=== PATIENT | male | born 1935 | race Caucasian/White ===

== ENCOUNTER 2017-10-02 15:33 | Inpatient (IN) | payer MEDICARE, OTHER ==
[~2017-10-02] VITALS: Ht 167.6 cm; Wt 90.5 kg
[2017-10-02] VITALS (10 sets, daily range): BP systolic 126–180; BP diastolic 75–108; PULSE 81–96; RESP 26–36; TEMP 98.7; O2SAT 96–98
[2017-10-02] MEDS ORDERED: RESP: ALBUTEROL 2.5 MG/IPRATROPIUM 0.5 MG NEB (SCH) INH ONE (15:45)
[2017-10-02] MEDS ORDERED: SODIUM CHLORIDE 0.9% FLUSH 10 ML FLUSH IVF PRN (15:45)
--- NOTE | 2017-10-02 15:52 | PD ---
HPI Chief Complaint: Respiratory Distress Time Seen by Provider: 15:35 Travel History International Travel<30 days: No Contact w/Intl Traveler<30days: No Traveled to known affect area: No History of Present Illness HPI The patient is a 82-year-old male who presents to the emergency department via EMS for shortness of breath. The patient notes increasing shortness of breath the last several months which has progressed her last several days. The patient has shortness of breath with exertion, audible wheezing, mostly dry nonproductive cough, and generalized weakness. The patient has been seen several times in the past and treated with steroids and inhalers, however, his symptoms have been progressing. He denies any known diagnosis of COPD, bronchitis, or CHF. The patient does take warfarin, however , is unsure of the diagnosis for why he takes warfarin. The patient is from [place], is followed at the [facility], does not have a local primary physician. He denies any fever, chills, or sweats. He does note increasing symptoms are worse with exertion and alleviated at rest. He denies any chest pressure or tightness with his symptoms. He denies any orthopnea or PND. He does have a history of previous trauma to left lower extremity, states his right lower extremity is chronically larger than his left lower extremity. He does note mild edema to the right lower extremity. He denies any known history of DVT or PE. The patient received Solu-Medrol 125 mg intravenously and 3 albuterol nebulizers prior to arrival. PFSH Past Medical History Cardiovascular Problems: Yes (AFIB) Past Surgical History Narrative Surgical Right knee surgery, left hip surgery Social History Tobacco Use: No Allergies-Medications (Allergen,Severity, Reaction): Coded Allergies: meloxicam (Verified Allergy, Intermediate, 10/02/17) indomethacin (Verified Allergy, Unknown, 10/02/17) Reported Meds & Prescriptions Reported Meds & Active Scripts Active Reported Guaifenesin 200 Mg Tablet 200 Mg PO TID Lisinopril 20 Mg Tab 20 Mg PO DAILY Finasteride 5 Mg Tab 5 Mg PO DAILY Do not crush. Tamsulosin (Tamsulosin HCl) 0.4 Mg Cap 0.4 Mg PO HS Warfarin 5 Mg Tab 2.5 Mg PO SUTUWETHFRSA Take 1/2 tablet (2.5mg) daily on Saturday,Saturday,Saturday,, Saturday and Saturday Warfarin 5 Mg Tab 5 Mg PO SATURDAY Simvastatin 20 Mg Tab 20 Mg PO HS Tramadol (Tramadol HCl) 50 Mg Tab 50 Mg PO TID Allopurinol 300 Mg Tab 300 Mg PO DAILY Lasix (Furosemide) 20 Mg Tab 20 Mg PO DAILY Metoprolol Tartrate 25 Mg Tab 25 Mg PO BID Prazosin (Prazosin HCl) 5 Mg Cap 5 Mg PO BID Omeprazole 20 Mg Tab 20 Mg PO DAILY Ventolin Hfa 18 GM Inh (Albuterol Sulfate) 90 Mcg/Act Aer 2 Puff INH QID Vitamin D3 (Cholecalciferol) 2,000 Unit Cap 2,000 Units PO DAILY Magnesium Oxide 420 Mg Tab 420 Mg PO BID Colchicine 0.6 Mg Cap 0.6 Mg PO MOWEFR Take 1 capsule (0.6mg) daily on Saturday,Saturday and Saturday [place] (Hydrocodone-Acetaminophen) 5 Mg-325 Mg Tab 1 Tab PO Q8HR PRN Colace (Docusate Sodium) 100 Mg Capsule 100 Mg PO BID PRN Claritin (Loratadine) 10 Mg Tablet 10 Mg PO DAILY Flonase Nasal [place] (Fluticasone Nasal [place]) 50 Mcg/Act [place] 2 [place] EACH NARE DAILY Diclofenac Topical 1% Gel 1 Applic TOPICAL BID PRN Symbicort Inh (Budesonide/Formoterol Fumarate) 80-4.5 Mcg/Act Aero 2 Puff INH Q12HR Review of Systems Except as stated in HPI: all other systems reviewed are Neg General / Constitutional: No: Fever HENT: No: Lightheadedness Cardiovascular: Positive: Dyspnea on exertion, No: Chest Pain or Discomfort Respiratory: Positive: Cough, Shortness of Breath, Wheezing Gastrointestinal: No: Nausea, Vomiting Musculoskeletal: Positive: Weakness, Edema Physical Exam Narrative GENERAL: Awake, alert, pleasant 82-year-old male who appears his stated age and is in moderate respiratory distress. SKIN: Focused skin assessment warm/dry. HEAD: Atraumatic. Normocephalic. EYES: No injection or drainage. ENT: No nasal bleeding or discharge. Mucous membranes pink and moist. NECK: Trachea midline. No JVD. CARDIOVASCULAR: Irregularly irregular, heart rate in the 80s. RESPIRATORY: Tachypnea with a respiratory rate of 30. Diffuse wheezing in all 4 lung hemphill. GASTROINTESTINAL: Abdomen soft, obese, reducible umbilical hernia. MUSCULOSKELETAL: Left lower extremity has chronic venous stasis changes and is significantly smaller than the right lower extremity with scarring. Right lower extremity has mild pitting edema. NEUROLOGICAL: Awake and alert. No obvious cranial nerve deficits. Motor grossly within normal limits. Normal speech. PSYCHIATRIC: Appropriate mood and affect; insight and judgment normal. Data Data Last Documented VS Vital Signs Date Time Temp Pulse Resp B/P (MAP) Pulse Ox O2 Delivery O2 Flow Rate FiO2 10/02/17 16:00 32 96 BiPAP 40 10/02/17 15:55 10.00 10/02/17 15:35 98.7 96 132/108 (116) Orders Orders Complete Blood Count With Diff (10/02/17 15:45) Comprehensive Metabolic Panel (10/02/17 15:45) B-Type Natriuretic Peptide (10/02/17 15:45) Act Partial Throm Time (Ptt) (10/02/17 15:45) Prothrombin Time / Inr (Pt) (10/02/17 15:45) Magnesium (Mg) (10/02/17 15:45) Ckmb (Isoenzyme) Profile (10/02/17 15:45) Troponin I (10/02/17 15:45) Influenzae A/B Antigen (10/02/17 15:45) Iv Access Insert/Monitor (10/02/17 15:45) Electrocardiogram (10/02/17 15:45) Ecg Monitoring (10/02/17 15:45) Oximetry (10/02/17 15:45) Oxygen Administration (10/02/17 15:45) Chest, Single Ap (10/02/17 15:45) Sodium Chloride 0.9% Flush (Ns Flush) (10/02/17 15:45) Albuterol-Ipratropium Neb (Duoneb Neb) (10/02/17 15:45) Resp Bipap / Cpap Non Invas Vt (10/02/17 15:45) CKMB (10/02/17 15:55) CKMB% (10/02/17 15:55) Aspirin Chew (Aspirin Chew) (10/02/17 17:00) Furosemide Inj (Lasix Inj) (10/02/17 17:00) Nitroglycerin 2% Oint (Nitroglycerin 2% (10/02/17 17:00) Labs Laboratory Tests Test 10/02/17 15:55 White Blood Count 4.5 TH/MM3 Red Blood Count 4.42 MIL/MM3 Hemoglobin 13.2 GM/DL Hematocrit 41.3 % Mean Corpuscular Volume 93.4 FL Mean Corpuscular Hemoglobin 29.8 PG Mean Corpuscular Hemoglobin Concent 31.9 % Red Cell Distribution Width 17.2 % Platelet Count 100 TH/MM3 Mean Platelet Volume 11.0 FL Neutrophils (%) (Auto) 65.6 % Lymphocytes (%) (Auto) 13.1 % Monocytes (%) (Auto) 17.7 % Eosinophils (%) (Auto) 2.8 % Basophils (%) (Auto) 0.8 % Neutrophils # (Auto) 3.0 TH/MM3 Lymphocytes # (Auto) 0.6 TH/MM3 Monocytes # (Auto) 0.8 TH/MM3 Eosinophils # (Auto) 0.1 TH/MM3 Basophils # (Auto) 0.0 TH/MM3 CBC Comment DIFF FINAL Differential Comment Prothrombin Time 26.1 SEC Prothromb Time International Ratio 2.6 RATIO Activated Partial Thromboplast Time 46.7 SEC Blood Urea Nitrogen 37 MG/DL Creatinine 1.86 MG/DL Random Glucose 69 MG/DL Total Protein 6.6 GM/DL Albumin 3.4 GM/DL Calcium Level 8.7 MG/DL Magnesium Level 2.1 MG/DL Alkaline Phosphatase 144 U/L Aspartate Amino Transf (AST/SGOT) 40 U/L Alanine Aminotransferase (ALT/SGPT) 31 U/L Total Bilirubin 0.9 MG/DL Sodium Level 140 MEQ/L Potassium Level 4.7 MEQ/L Chloride Level 106 MEQ/L Carbon Dioxide Level 27.0 MEQ/L Anion Gap 7 MEQ/L Estimat Glomerular Filtration Rate 35 ML/MIN Total Creatine Kinase 202 U/L Creatine Kinase MB 4.2 NG/ML Troponin I 0.14 NG/ML B-Type Natriuretic Peptide 634 PG/ML MDM Medical Decision Making Medical Screen Exam Complete: Yes Emergency Medical Condition: Yes Medical Record Reviewed: Yes Interpretation(s) EKG reveals atrial fibrillation with a heart rate 80. Low QRS voltage in the extremity leads. Last Impressions Chest X-Ray 10/02/17 0182 Signed Impressions: Service Date/Time: Monday, October 02, 2017 15:58 - CONCLUSION: Compensated cardiomegaly otherwise negative . Bridger Roque MD FACR Laboratory Tests Test 10/02/17 15:55 White Blood Count 4.5 TH/MM3 Red Blood Count 4.42 MIL/MM3 Hemoglobin 13.2 GM/DL Hematocrit 41.3 % Mean Corpuscular Volume 93.4 FL Mean Corpuscular Hemoglobin 29.8 PG Mean Corpuscular Hemoglobin Concent 31.9 % Red Cell Distribution Width 17.2 % Platelet Count 100 TH/MM3 Mean Platelet Volume 11.0 FL Neutrophils (%) (Auto) 65.6 % Lymphocytes (%) (Auto) 13.1 % Monocytes (%) (Auto) 17.7 % Eosinophils (%) (Auto) 2.8 % Basophils (%) (Auto) 0.8 % Neutrophils # (Auto) 3.0 TH/MM3 Lymphocytes # (Auto) 0.6 TH/MM3 Monocytes # (Auto) 0.8 TH/MM3 Eosinophils # (Auto) 0.1 TH/MM3 Basophils # (Auto) 0.0 TH/MM3 CBC Comment DIFF FINAL Differential Comment Prothrombin Time 26.1 SEC Prothromb Time International Ratio 2.6 RATIO Activated Partial Thromboplast Time 46.7 SEC Blood Urea Nitrogen 37 MG/DL Creatinine 1.86 MG/DL Random Glucose 69 MG/DL Total Protein 6.6 GM/DL Albumin 3.4 GM/DL Calcium Level 8.7 MG/DL Magnesium Level 2.1 MG/DL Alkaline Phosphatase 144 U/L Aspartate Amino Transf (AST/SGOT) 40 U/L Alanine Aminotransferase (ALT/SGPT) 31 U/L Total Bilirubin 0.9 MG/DL Sodium Level 140 MEQ/L Potassium Level 4.7 MEQ/L Chloride Level 106 MEQ/L Carbon Dioxide Level 27.0 MEQ/L Anion Gap 7 MEQ/L Estimat Glomerular Filtration Rate 35 ML/MIN Total Creatine Kinase 202 U/L Creatine Kinase MB 4.2 NG/ML Troponin I 0.14 NG/ML B-Type Natriuretic Peptide 634 PG/ML Differential Diagnosis Differential diagnosis includes COPD exacerbation, bronchitis, pneumonia, pulmonary embolism, pleural effusion, congestive heart failure, ACS. Narrative Course IV was established, labs are drawn and sent, and the patient was placed on cardiac telemetry monitoring and continuous pulse oximetry monitoring. EKG was ordered and interpreted. Chest x-ray was obtained. The patient continued to have tachypnea with a respiratory rate of 30 this 5 Solu-Medrol and 3 nebulizers prior to arrival, therefore, was placed on BiPAP 10/5 of 40%. Differential does include PE, however, patient is on warfarin. Therefore, INR level was sent to lab. The patient was placed on BiPAP secondary to elevated respiratory rate, his symptoms did improve with BiPAP when reevaluated at 4:45 PM. BNP was greater than 600, troponin was positive at 0.14, therefore, patient was administered aspirin. The patient initially denied any history of COPD or CHF, however, when his arrived she states he has a history of both COPD and CHF. The patient was also administered Lasix. The patient was given Nitropaste. The patient will be admitted. Critical Care Narrative Aggregate critical care time was 35 minutes. Time to perform other separately billable procedures was not included in the critical care time. My time did not include minutes spent treating any other patients simultaneously or on activities that did not directly contribute to the patient's treatment. The services I provided to this patient were to treat and/or prevent clinically significant deterioration that could result in: Anoxia, hypoxia, arrhythmia, pulmonary edema, . I provided critical care services requiring my management, as noted below: Chart data review, documentation time, medication orders and management, vital sign assessments/reviewing monitor data, ordering and reviewing lab tests, ordering and interpreting/reviewing x-rays and diagnostic studies, care of the patient and discussion of the patient with the admitting physicians. Physician Communication Physician Communication [facility] were paged for admission. I discussed the patient with Dr. Barnhart who agrees with admission. Diagnosis Primary Impression: Congestive heart failure Qualified Codes: I50.9 - Heart failure, unspecified Additional Impression: Elevated troponin Admitting Information Admitting Physician Requests: Admit Condition: Stable Ascencion Argueta MD Oct 02, 2017 15:52
--- NOTE | 2017-10-02 16:10 | RADRPT ---
EXAM DATE/TIME: 10/02/2017 15:58 [place] COMPARISON: No previous studies available for comparison. INDICATIONS : Shortness of breath, cough, and congestion. MEDICAL HISTORY : None. SURGICAL HISTORY : None. ENCOUNTER: Initial ACUITY: 1 day PAIN SCORE: 0/10 LOCATION: chest FINDINGS: The lungs are clear. The heart is minimally enlarged. The pulmonary vascularity is normal. There is n o evidence for infiltrate or failure. The portion of the bony skeleton visualized is unremarkable. CONCLUSION: Compensated cardiomegaly otherwise negative . Bridger Roque MD FACR on October 02, 2017 at 16:07 Board Certified Radiologist. This report was verified electronically.
[2017-10-02 16:24] LABS: BASOPHIL % 0.8 % (0.0-2.0); EOSINOPHIL # 0.1 TH/MM3 (0-0.4); EOSINOPHIL % 2.8 % (0.0-4.0); HEMATOCRIT 41.3 % (39.0-51.0); HEMOGLOBIN 13.2 GM/DL (13.0-17.0); LYMPH % 13.1 % (9.0-44.0); LYMPHOCYTE # 0.6 TH/MM3 (1.0-4.8); MEAN CELL VOLUME 93.4 FL (80.0-100.0); MEAN CORPUSCULAR HEMOGLOBIN 29.8 PG (27.0-34.0); MEAN CORPUSCULAR HGB CONC 31.9 % (32.0-36.0); MONO % 17.7 % (0.0-8.0); MONOCYTE # 0.8 TH/MM3 (0-0.9); NEUT % 65.6 % (16.0-70.0); PLATELET COUNT 100 TH/MM3 (150-450); RED BLOOD COUNT 4.42 MIL/MM3 (4.50-5.90); RED CELL DISTRIBUTION WIDTH 17.2 % (11.6-17.2); WHITE BLOOD COUNT 4.5 TH/MM3 (4.0-11.0)
[2017-10-02 16:41] LABS: INTERNATIONAL NORMALIZED RATIO 2.6 RATIO; PROTHROMBIN TIME - PATIENT 26.1 SEC (9.8-11.6)
[2017-10-02 16:46] LABS: ALKALINE PHOSPHATASE 144 U/L (45-117); ALT (GPT) 31 U/L (12-78); TOTAL BILIRUBIN ADULT 0.9 MG/DL (0.2-1.0); TOTAL PROTEIN 6.6 GM/DL (6.4-8.2); TROPONIN I 0.14 NG/ML (0.02-0.05)
[2017-10-02] MEDS ORDERED: NITROGLYCERIN 2% OINT 1 GM PACKET TOPICAL ONE (17:00)
[2017-10-02] MEDS ORDERED: FUROSEMIDE 40 MG/4 ML VIAL IV PUSH ONE (17:00)
[2017-10-02] MEDS ORDERED: ASPIRIN 81 MG CHEW TAB CHEW ONE (17:00)
[2017-10-02 17:01] LABS: ALBUMIN 3.4 GM/DL (3.4-5.0); AST (GOT) 40 U/L (15-37); BLOOD UREA NITROGEN 37 MG/DL (7-18); CALCIUM 8.7 MG/DL (8.5-10.1); CHLORIDE 106 MEQ/L (98-107); CREATININE 1.86 MG/DL (0.60-1.30); GLOMERULAR FILTRATION RATE 35 ML/MIN (>89); GLUCOSE,RANDOM 69 MG/DL (74-106); MAGNESIUM 2.1 MG/DL (1.5-2.5); SODIUM (NA) 140 MEQ/L (136-145)
[2017-10-02] MEDS ORDERED: METO25TA3 PO (17:02)
[2017-10-02] MEDS ORDERED: DICL1GEL7 TOPICAL (17:02)
[2017-10-02] MEDS ORDERED: VITA2000 PO (17:02)
[2017-10-02] MEDS ORDERED: LISI-515 PO (17:02)
[2017-10-02] MEDS ORDERED: FLUT1SPR5 EACH NARE (17:02)
[2017-10-02] MEDS ORDERED: COLC1CAP3 PO (17:02)
[2017-10-02] MEDS ORDERED: VENTAER INH (17:02)
[2017-10-02] MEDS ORDERED: SYMB80AE INH (17:02)
[2017-10-02] MEDS ORDERED: FINA5TAB2 PO (17:02)
[2017-10-02] MEDS ORDERED: COLA100C5 PO (17:02)
[2017-10-02] MEDS ORDERED: TRAM50TA PO (17:02)
[2017-10-02] MEDS ORDERED: NORC5TAB PO (17:02)
[2017-10-02] MEDS ORDERED: ALLO300T2 PO (17:02)
[2017-10-02] MEDS ORDERED: FURO1TAB62 PO (17:02)
[2017-10-02] MEDS ORDERED: SIMV20TA PO (17:02)
[2017-10-02] MEDS ORDERED: GUAI200T4 PO (17:02)
[2017-10-02] MEDS ORDERED: PRAZ5CAP PO (17:02)
[2017-10-02] MEDS ORDERED: MAGN420T PO (17:02)
[2017-10-02] MEDS ORDERED: TAMS0.4C4 PO (17:02)
[2017-10-02] MEDS ORDERED: WARF-23 PO ×2 (17:02)
[2017-10-02] MEDS ORDERED: CLAR10TA7 PO (17:02)
[2017-10-02] MEDS ORDERED: OMEP20TA93 PO (17:02)
[2017-10-02] MEDS ORDERED: BISACODYL 10 MG SUPP RECTAL PRN (18:30)
[2017-10-02] MEDS ORDERED: NALOXONE HCL 0.4 MG/ML AMP IV PUSH PRN (18:30)
[2017-10-02] MEDS ORDERED: MAGNESIUM HYDROXIDE SUSP 30 ML CUP PO PRN (18:30)
[2017-10-02] MEDS ORDERED: SENNOSIDES 8.6 MG TAB PO PRN (18:30)
[2017-10-02] MEDS ORDERED: SODIUM CHLORIDE 0.9% FLUSH 10 ML FLUSH IV FLUSH PRN (18:30)
[2017-10-02] MEDS ORDERED: ENOXAPARIN SODIUM 40 MG/0.4 ML SYRINGE SQ SCH (18:30)
[2017-10-02] MEDS ORDERED: ONDANSETRON HCL 4 MG/2 ML VIAL IVP PRN (18:30)
[2017-10-02] MEDS ORDERED: LACTULOSE SYRUP 20 GM/30 ML CUP PO PRN (18:30)
--- NOTE | 2017-10-02 19:04 | HHI.HP ---
[facility] Service [facility] Physician [facility] Admission Diagnosis congestive heart failure, elevated troponin, dyspnea Diagnoses: Chief Complaint: Shortness of breath. I can't breathe Travel History International Travel<30 Days: No Contact w/Intl Traveler <30 Da: No Traveled to Known Affected Are: No History of Present Illness 82-year-old white male with a history of COPD, CHF, chronic atrial fibrillation presents emergency room with worsening shortness of breath over the past 3 days. He describes shortness breath is worse with exertion and ambulation and associated with productive cough for the past 2 days. His is at bedside states that he has had greenish sputum production. He denies any chills or fever nor any symptoms of muscle aches or joint pains. She states that she recently had upper respiratory infection and feels he may have similar symptoms. He denies any associated abdominal pain nor any symptoms of diarrhea , nausea, or vomiting. He has noted that he has increase swelling of the lower legs. He denies any associated chest pain or score palpitations with the symptoms. He usually does not use oxygen. He does have inhalers and nebulizers and despite using these continues have shortness of breath. He has is currently staying here temporary until December from [place]. His baseline activity is ambulating with assistance of walker however due to the past 3 days has not been ambulating much. Review of Systems Constitutional: DENIES: Fatigue, Fever, Chills, Change in appetite Endocrine: DENIES: Heat/cold intolerance Eyes: DENIES: Blurred vision, Eye pain, Vision loss Ears, nose, mouth, throat: DENIES: Hearing loss, Nasal discharge, Throat pain, Ear Pain, Sinus Pain Respiratory: COMPLAINS OF: Cough, Sputum production, Shortness of breath, DENIES: Hemoptysis Cardiovascular: COMPLAINS OF: Lower Extremity Edema, Orthopnea, DENIES: Chest pain, Palpitations, Dyspnea on Exertion, PND Gastrointestinal: DENIES: Abdominal pain, Black stools, Bloody stools, Constipation, Diarrhea, Nausea, Vomiting Musculoskeletal: DENIES: Joint pain, Muscle aches, Stiffness Integumentary: DENIES: Rash Hematologic/lymphatic: DENIES: Bruising, Lymphadenopathy Immunologic/allergic: DENIES: Eczema Neurologic: DENIES: Headache, Localized weakness, Paresthesias Psychiatric: DENIES: Anxiety, Depression, Suicidal Ideation Past Family Social History Past Medical History COPD Nonspecific CHF Atrial fibrillation, chronic Hypertension Past Surgical History Right knee surgery Left hip surgery Reported Medications Guaifenesin 200 Mg Tablet 200 Mg PO TID Lisinopril 20 Mg Tab 20 Mg PO DAILY Finasteride 5 Mg Tab 5 Mg PO DAILY Tamsulosin (Tamsulosin HCl) 0.4 Mg Cap 0.4 Mg PO HS Warfarin 5 Mg 2.5 Mg PO SUTUWETHFRSA Take 1/2 tablet (2.5mg) daily on Saturday,Saturday,Saturday,,Saturday and Saturday Warfarin 5 Mg Tab 5 Mg PO SATURDAY Simvastatin 20 Mg Tab 20 Mg PO HS Tramadol (Tramadol HCl) 50 Mg Tab 50 Mg PO TID Allopurinol 300 Mg Tab 300 Mg PO DAILY Lasix (Furosemide) 20 Mg Tab 20 Mg PO DAILY Metoprolol Tartrate 25 Mg Tab 25 Mg PO BID Prazosin (Prazosin HCl) 5 Mg Cap 5 Mg PO BID Omeprazole 20 Mg Tab 20 Mg PO DAILY Ventolin Hfa 18 GM Inh (Albuterol Sulfate) 90 Mcg/Act Aer 2 Puff INH QID Vitamin D3 (Cholecalciferol) 2,000 Unit Cap 2,000 Units PO DAILY Magnesium Oxide 420 Mg Tab 420 Mg PO BID Colchicine 0.6 Mg Cap 0.6 Mg PO MOWEFR Take 1 capsule (0.6mg) daily on Saturday,Saturday and Saturday [place] (Hydrocodone-Acetaminophen) 5 Mg-325 Mg Tab 1 Tab PO Q8HR PRN Colace (Docusate Sodium) 100 Mg Capsule 100 Mg PO BID PRN Claritin (Loratadine) 10 Mg Tablet 10 Mg PO DAILY Flonase Nasal [place] (Fluticasone Nasal [place]) 50 Mcg/Act Williams 2 Williams EACH NARE DAILY Diclofenac Topical 1% Gel 1 Applic TOPICAL BID PRN Symbicort Inh (Budesonide/Formoterol Fumarate) 80-4.5 Mcg/Act Aero 2 Puff INH Q12HR Allergies: Coded Allergies: Iodinated Contrast- Oral and IV Dye (Verified Allergy, Severe, 10/02/17) pt's states it caused chronic renal failure meloxicam (Verified Allergy, Intermediate, 10/02/17) indomethacin (Verified Allergy, Unknown, 10/02/17) Family History Father had a stroke and hypertension Social History Occasional user [employer] does not smoke cigarettes Physical Exam Vital Signs Vital Signs Date Time Temp Pulse Resp B/P (MAP) Pulse Ox O2 Delivery O2 Flow Rate FiO2 10/02/17 18:37 81 26 180/89 (119) 98 BiPAP 50 10/02/17 17:00 87 28 178/88 (118) 96 BiPAP 40 10/02/17 16:00 32 96 BiPAP 40 10/02/17 15:55 99 BiPAP 10.00 40 10/02/17 15:45 96 Nasal Cannula 3.00 10/02/17 15:45 96 Nasal Cannula 3.00 10/02/17 15:35 98.7 96 36 132/108 (116) 98 Physical Exam GENERAL: This is a well-nourished, well-developed patient, in mild respiratory distress currently on a BiPAP SKIN: Venous stasis dermatitis with darkening of the skin and lower extremities bilaterally. Cool and dry. HEAD: Atraumatic. Normocephalic. No temporal or scalp tenderness. EYES: Pupils equal round and reactive. Extraocular motions intact. No scleral icterus. No injection or drainage. ENT: Nose without bleeding, purulent drainage or septal hematoma. Throat without erythema, tonsillar hypertrophy or exudate. Uvula midline. Airway patent. NECK: Trachea midline. No JVD or lymphadenopathy. Supple, nontender, no meningeal signs. CARDIOVASCULAR: Irregular rhythm regular rate RESPIRATORY: Diffuse wheezes bilaterally. GASTROINTESTINAL: Abdomen soft, obese non-tender, nondistended. Patient has an umbilical hernia. No guarding. Normoactive bowel sounds MUSCULOSKELETAL: Extremities without clubbing, cyanosis, with 1-2+ edema bilaterally NEUROLOGICAL: Awake and alert to person and place. Cranial nerves II through XII intact. Motor and sensory grossly within normal limits. Five out of 5 muscle strength in all muscle groups. Normal speech. Laboratory Laboratory Tests Test 10/02/17 15:55 White Blood Count 4.5 Red Blood Count 4.42 Hemoglobin 13.2 Hematocrit 41.3 Mean Corpuscular Volume 93.4 Mean Corpuscular Hemoglobin 29.8 Mean Corpuscular Hemoglobin Concent 31.9 Red Cell Distribution Width 17.2 Platelet Count 100 Mean Platelet Volume 11.0 Neutrophils (%) (Auto) 65.6 Lymphocytes (%) (Auto) 13.1 Monocytes (%) (Auto) 17.7 Eosinophils (%) (Auto) 2.8 Basophils (%) (Auto) 0.8 Neutrophils # (Auto) 3.0 Lymphocytes # (Auto) 0.6 Monocytes # (Auto) 0.8 Eosinophils # (Auto) 0.1 Basophils # (Auto) 0.0 CBC Comment DIFF FINAL Differential Comment Prothrombin Time 26.1 Prothromb Time International Ratio 2.6 Activated Partial Thromboplast Time 46.7 Blood Urea Nitrogen 37 Creatinine 1.86 Random Glucose 69 Total Protein 6.6 Albumin 3.4 Calcium Level 8.7 Magnesium Level 2.1 Alkaline Phosphatase 144 Aspartate Amino Transf (AST/SGOT) 40 Alanine Aminotransferase (ALT/SGPT) 31 Total Bilirubin 0.9 Sodium Level 140 Potassium Level 4.7 Chloride Level 106 Carbon Dioxide Level 27.0 Anion Gap 7 Estimat Glomerular Filtration Rate 35 Total Creatine Kinase 202 Creatine Kinase MB 4.2 Troponin I 0.14 B-Type Natriuretic Peptide 634 Date/Time Source Procedure Growth Status 10/02/17 15:55 Nasal Aspirate Influenza Types A,B Antigen ([facility]LER) - Final NEGATIVE FOR FLU A AND B ANTIGEN.... Complete Result Diagram: 10/02/17 1555 10/02/17 1555 Imaging EKG- afib with RVR 80 Last Impressions Chest X-Ray 10/02/17 1545 Signed Impressions: Service Date/Time: Monday, October 02, 2017 15:58 - CONCLUSION: Compensated cardiomegaly otherwise negative . Bridger Roque MD FACR Caprini VTE Risk Assessment Caprini VTE Risk Assessment: Mod/High Risk (score >= 2) Caprini Risk Assessment Model Point Value = 1 Point Value = 2 Point Value = 3 Point Value = 5 Age 41-60 Minor surgery BMI > 25 kg/m2 Swollen legs Varicose veins or History of unexplained or recurrent spontaneous Oral contraceptives or hormone replacement Sepsis (< 1 month) Serious lung disease, including pneumonia (< 1 month) Abnormal pulmonary function Acute myocardial infarction Congestive heart failure (< 1 month) History of inflammatory bowel disease Medical patient at bed rest Age 61-74 Arthroscopic surgery Major open surgery (> 45 min) Laparoscopic surgery (> 45 min) Malignancy Confined to bed (> 72 hours) Immobilizing plaster cast Central venous access Age >= 75 History of VTE Family history of VTE Factor V Leiden Prothrombin [id number] Lupus anticoagulant Anticardiolipin antibodies Elevated serum homocysteine Heparin-induced thrombocytopenia Other congenital or acquired thrombophilia Stroke (< 1 month) Elective arthroplasty Hip, pelvis, or leg fracture Acute spinal cord injury (< 1 month) Prophylaxis Regimen Total Risk Factor Score Risk Level Prophylaxis Regimen 0-1 Low Early ambulation 2 Moderate Order ONE of the following: *Sequential Compression Device (SCD) *Heparin 5000 units SQ BID 3-4 Higher Order ONE of the following medications: *Heparin 5000 units SQ TID *Enoxaparin/Lovenox 40 mg SQ daily (WT < 150 kg, CrCl > 30 mL/min) *Enoxaparin/Lovenox 30 mg SQ daily (WT < 150 kg, CrCl > 10-29 mL/min) *Enoxaparin/Lovenox 30 mg SQ BID (WT < 150 kg, CrCl > 30 mL/min) AND/OR *Sequential Compression Device (SCD) 5 or more Highest Order ONE of the following medications: *Heparin 5000 units SQ TID (Preferred with Epidurals) *Enoxaparin/Lovenox 40 mg SQ daily (WT < 150 kg, CrCl > 30 mL/min) *Enoxaparin/Lovenox 30 mg SQ daily (WT < 150 kg, CrCl > 10-29 mL/min) *Enoxaparin/Lovenox 30 mg SQ BID (WT < 150 kg, CrCl > 30 mL/min) AND *Sequential Compression Device (SCD) Assessment and Plan Problem List: (1) Acute respiratory failure ICD Code: J96.00 - Acute respiratory failure, unspecified whether with hypoxia or hypercapnia Status: Acute Assessment and Plan 1. Acute respiratory failure with hypoxia likely due to COPD exacerbation from likely underlying bronchitis and CHF exacerbation. -At this time patient's current moment BiPAP in the emergency room and will continue oxygen support and wean as tolerated. Continue with bronchodilator per nebulizer, steroids with IV Solu-Medrol and IV diuretics. Monitor intake and output closely, initiate doxycycline for bronchitis. Obtain 2-D echo to evaluate EF 2. Deconditioning with generalized weakness due to acute respiratory failure and acute bronchitis -physical therapy evaluation 3. Chronic atrial fibrillation -continue with metoprolol and warfarin, monitor INR. 4. History hypertension resume antihypertensive lisinopril, Vasotec when necessary for any uncontrolled blood pressure 5. Hyperlipidemia history- resume home statin. 6. Chronic kidney disease stage III -monitor on diuretics, avoid nephrotoxins. 7. DVT prophylaxis- Coumadin Discussed with at bedside who prefers home health care upon discharge to home when stable. Code Status Full code Discussed Condition With Patient and spouse at bedside. Physician Certification 2 Midnight Certification Type: Admission for Inpatient Services Order for Inpatient Services The services are ordered in accordance with Medicare regulations or non- Medicare payer requirements, as applicable. In the case of services not specified as inpatient-only, they are appropriately provided as inpatient services in accordance with the 2-midnight benchmark. Estimated LOS (days): 3 days is the estimated time the patient will need to remain in the hospital, assuming treatment plan goals are met and no additional complications. Post-Hospital Plan: Home Health Problem Qualifiers (1) Acute respiratory failure: Qualified Codes: J96.01 - Acute respiratory failure with hypoxia Lyndsay Barnhart MD Oct 02, 2017 19:03
[2017-10-02] MEDS: SODIUM CHLORIDE 0.9% FLUSH 10 ML FLUSH IV FLUSH SCH (19:09)
[2017-10-02] MEDS: LISINOPRIL 20 MG TAB PO SCH ×2 (19:30→20:04)
[2017-10-02] MEDS ORDERED: RESP: ALBUTEROL 2.5 MG/3 ML NEB (PRN) INH (19:30)
[2017-10-02] MEDS ORDERED: guaiFENesin/DEXTROMETHORPHAN 200 MG/20 MG/10 ML CUP PO PRN (19:30)
[2017-10-02] MEDS ORDERED: ENALAPRILAT 1.25 MG/ML VIAL IV PUSH PRN (19:30)
[2017-10-02] MEDS: WARFARIN SOD 2.5 MG TAB PO SCH (19:34)
[2017-10-02] MEDS: DOXYCYCLINE HYCLATE 100 MG CAP PO SCH (19:48)
[2017-10-02] MEDS: methylPREDNISolone SOD SUCC 125 MG/2 ML VIAL IV PUSH SCH (19:48)
[2017-10-02] MEDS: POTASSIUM CHLORIDE 20 MEQ CONTROLLED RELEASE TAB PO SCH (19:48)
[2017-10-02] MEDS: FINASTERIDE 5 MG TAB PO SCH (19:57)
[2017-10-02] MEDS: COLCHICINE 0.6 MG TAB PO SCH (19:57)
[2017-10-02] MEDS: TAMSULOSIN HCL 0.4 MG CAP PO SCH (19:57)
[2017-10-02] MEDS: RESP: ALBUTEROL 2.5 MG/IPRATROPIUM 0.5 MG NEB (SCH) INH (20:34)
[2017-10-02] MEDS: PRAVASTATIN SOD 40 MG TAB PO SCH (20:43)
[2017-10-02] MEDS: METOPROLOL TARTRATE 25 MG TAB PO SCH (20:43)
[2017-10-02] MEDS: PRAZOSIN HCL 5 MG CAP PO SCH (21:00)
[2017-10-02] MEDS ORDERED: SODIUM CHLORIDE 0.9% FLUSH 10 ML FLUSH IV FLUSH SCH (21:00)
[2017-10-02] MEDS ORDERED: ENOXAPARIN SODIUM 30 MG/0.3 ML SYRINGE SQ SCH (21:00)
[2017-10-03] VITALS (18 sets, daily range): BP systolic 104–160; BP diastolic 57–107; PULSE 75–119; RESP 16–22; TEMP 97.7–97.8; O2SAT 94–99
[2017-10-03] MEDS: RESP: ALBUTEROL 2.5 MG/IPRATROPIUM 0.5 MG NEB (SCH) INH ×7 (00:58→23:44)
[2017-10-03] MEDS: methylPREDNISolone SOD SUCC 125 MG/2 ML VIAL IV PUSH SCH ×4 (02:10→21:59)
[2017-10-03 08:16] LABS: BICARBONATE 25.5 MEQ/L (21.0-32.0); CALCIUM 8.9 MG/DL (8.5-10.1); CREATININE 1.93 MG/DL (0.60-1.30)
[2017-10-03] MEDS: DOXYCYCLINE HYCLATE 100 MG CAP PO SCH ×2 (10:04→22:00)
[2017-10-03] MEDS: FUROSEMIDE 40 MG/4 ML VIAL IVP SCH ×2 (10:04→18:00)
[2017-10-03] MEDS: PRAZOSIN HCL 5 MG CAP PO SCH ×2 (10:04→21:58)
[2017-10-03] MEDS: traMADol HCL 50 MG TAB PO SCH ×3 (10:04→18:00)
[2017-10-03] MEDS: ALLOPURINOL 300 MG TAB PO SCH (10:05)
[2017-10-03] MEDS: LORATADINE 10 MG TAB PO SCH (10:05)
[2017-10-03] MEDS: FINASTERIDE 5 MG TAB PO SCH (10:06)
[2017-10-03] MEDS: LISINOPRIL 20 MG TAB PO SCH (10:06)
[2017-10-03] MEDS: METOPROLOL TARTRATE 25 MG TAB PO SCH ×2 (10:12→21:59)
[2017-10-03] MEDS: SODIUM CHLORIDE 0.9% FLUSH 10 ML FLUSH IV FLUSH SCH ×2 (10:12→22:00)
[2017-10-03] MEDS: PANTOPRAZOLE SOD 20 MG DELAYED RELEASE TAB PO SCH (10:12)
[2017-10-03] MEDS: POTASSIUM CHLORIDE 20 MEQ CONTROLLED RELEASE TAB PO SCH ×2 (10:12→21:59)
--- NOTE | 2017-10-03 12:15 | HHI.PR ---
Subjective Remarks Breathing is better. Trying to cough up phlegm. No active shortness of her palpitations. Is open to going to rehabilitation if need to. Objective Vitals Vital Signs Date Time Temp Pulse Resp B/P (MAP) Pulse Ox O2 Delivery O2 Flow Rate FiO2 10/03/17 12:08 103 20 134/68 (90) 95 Nasal Cannula 2.00 10/03/17 09:29 100 20 160/107 (124) 95 Nasal Cannula 2.00 10/03/17 07:37 97 Nasal Cannula 2.00 10/03/17 07:02 88 148/78 (101) 97 Nasal Cannula 4.00 10/03/17 05:59 84 137/99 (112) 97 Nasal Cannula 4.00 10/03/17 05:05 93 22 135/83 (100) 98 Nasal Cannula 4.00 10/03/17 03:59 94 149/93 (111) 97 Nasal Cannula 4.00 10/03/17 02:59 79 22 132/74 (93) 97 Nasal Cannula 4.00 10/03/17 02:09 75 22 132/71 (91) 97 Nasal Cannula 4.00 10/03/17 00:59 96 Nasal Cannula 4.00 10/02/17 22:59 87 146/75 (98) 98 Nasal Cannula 4.00 10/02/17 22:20 85 126/85 (99) 96 Nasal Cannula 4.00 10/02/17 21:38 97 Nasal Cannula 4.00 10/02/17 20:59 93 177/84 (115) 98 BiPAP 10/02/17 20:04 82 163/102 (122) 98 BiPAP 10/02/17 19:29 94 154/77 (102) 97 BiPAP 10/02/17 18:37 81 26 180/89 (119) 98 BiPAP 50 10/02/17 17:00 87 28 178/88 (118) 96 BiPAP 40 10/02/17 16:00 32 96 BiPAP 40 10/02/17 15:55 99 BiPAP 10.00 40 10/02/17 15:47 97 40 10/02/17 15:45 96 Nasal Cannula 3.00 10/02/17 15:45 96 Nasal Cannula 3.00 10/02/17 15:35 98.7 96 36 132/108 (116) 98 I/O 1/07/1010/02/17 10/02/17 10/03/17 10/03/17 10/03/17 07:00 15:00 23:00 07:00 15:00 23:00 Output Total 1000 ml 500 ml Balance -1000 ml -500 ml Output Urine Total 1000 ml 500 ml # Voids 3 2 Result Diagram: 10/02/17 1555 10/03/17 0720 Other Results Microbiology Date/Time Source Procedure Growth Status 10/02/17 15:55 Nasal Aspirate Influenza Types A,B Antigen (CHANDLER) - Final NEGATIVE FOR FLU A AND B ANTIGEN.... Complete Imaging Last Impressions Chest X-Ray 10/02/17 1545 Signed Impressions: Service Date/Time: Monday, October 02, 2017 15:58 - CONCLUSION: Compensated cardiomegaly otherwise negative . Bridger Roque MD FACR Objective Remarks GENERAL: This is a well-nourished, well-developed patient, in no apparent distress. CARDIOVASCULAR: Irregular rate and rhythm RESPIRATORY: Diffuse expiratory wheezes, diminish breath sounds bilaterally. GASTROINTESTINAL: Abdomen soft, non-tender, obese nondistended. Normal active bowel sounds MUSCULOSKELETAL: Extremities without clubbing, cyanosis, 1-2+ edema with venous stasis dermatitis NEURO: Alert & Oriented x4 to person, place, time, situation. Moves all ext x4 A/P Problem List: (1) Acute respiratory failure ICD Code: J96.00 - Acute respiratory failure, unspecified whether with hypoxia or hypercapnia Status: Acute Assessment and Plan 1. Acute respiratory failure with hypoxia likely due to COPD exacerbation from likely underlying bronchitis and CHF exacerbation. - At this time, patient has improved overnight and wean off of BiPAP now on 2 L nasal cannula. Continue with bronchodilator per nebulizer, steroids with IV Solu-Medrol will be decreased to every 8 hours in the morning and IV diuretics, Lasix. Monitor intake and output closely, initiate doxycycline for bronchitis. Obtain 2-D echo to evaluate EF. Once it test in the morning to determine oxygen needs upon discharge. 2. Deconditioning with generalized weakness due to acute respiratory failure and acute bronchitis -await physical therapy evaluation 3. Chronic atrial fibrillation -currently rate controlled. Continue with metoprolol and warfarin, monitor INR. INR therapeutic on admission. 4. History hypertension resume antihypertensive lisinopril, Vasotec when necessary for any uncontrolled blood pressure 5. Hyperlipidemia history- resume home statin. 6. Chronic kidney disease stage III -stable overnight, monitor on diuretics, avoid nephrotoxins. 7. DVT prophylaxis- Coumadin Discharge Planning would prefer patient to go home with home health care, patient is open to going to [facility] facility. Patient and is here from [place] until December. Follow-up with local primary care physician. Walk fit test to be done the morning to determine if patient will need home O2 if home health care is arrange for disposition. Problem Qualifiers (1) Acute respiratory failure: Qualified Codes: J96.01 - Acute respiratory failure with hypoxia Lyndsay Barnhart MD Oct 03, 2017 12:15
[2017-10-03] MEDS: WARFARIN SOD 2.5 MG TAB PO SCH (16:00)
--- NOTE | 2017-10-03 18:22 | EKG ---
Date Performed: 10/02/2017 Time Performed: 15:41:09 PTAGE: 82 years EKG: ATRIAL FIBRILLATION MARKED RIGHT AXIS DEVIATION LOW QRS VOLTAGE IN EXTREMITY LEADS PATTERN CONSISTENT WITH PULMONARY DISEASE SEPTAL MYOCARDIAL INFARCTION ABNORMAL ECG NO PREVIOUS TRACING DOCTOR: Arlin Spann Interpretating Date/Time 10/03/2017 18:20:50
[2017-10-03] MEDS: TAMSULOSIN HCL 0.4 MG CAP PO SCH (21:59)
[2017-10-03] MEDS: PRAVASTATIN SOD 40 MG TAB PO SCH (22:00)
[2017-10-04] VITALS (14 sets, daily range): BP systolic 109–134; BP diastolic 62–104; PULSE 78–130; RESP 18–22; TEMP 96.2–98.1; O2SAT 93–98
[2017-10-04] MEDS: methylPREDNISolone SOD SUCC 125 MG/2 ML VIAL IV PUSH SCH ×4 (01:55→23:43)
[2017-10-04] MEDS: RESP: ALBUTEROL 2.5 MG/IPRATROPIUM 0.5 MG NEB (SCH) INH ×5 (04:00→19:04)
[2017-10-04] MEDS: SODIUM CHLORIDE 0.9% FLUSH 10 ML FLUSH IV FLUSH PRN (05:39)
[2017-10-04] MEDS ORDERED: methylPREDNISolone SOD SUCC 125 MG/2 ML VIAL IV PUSH SCH (06:00)
[2017-10-04] MEDS: POTASSIUM CHLORIDE 20 MEQ CONTROLLED RELEASE TAB PO SCH ×2 (08:39→21:00)
[2017-10-04] MEDS: ALLOPURINOL 300 MG TAB PO SCH (08:41)
[2017-10-04] MEDS: FUROSEMIDE 40 MG/4 ML VIAL IVP SCH (08:41)
[2017-10-04] MEDS: PANTOPRAZOLE SOD 20 MG DELAYED RELEASE TAB PO SCH (08:41)
[2017-10-04] MEDS: LORATADINE 10 MG TAB PO SCH (08:41)
[2017-10-04] MEDS: SODIUM CHLORIDE 0.9% FLUSH 10 ML FLUSH IV FLUSH SCH ×2 (08:42→21:01)
[2017-10-04] MEDS: FINASTERIDE 5 MG TAB PO SCH (08:42)
[2017-10-04] MEDS: METOPROLOL TARTRATE 25 MG TAB PO SCH (08:42)
[2017-10-04] MEDS: PRAZOSIN HCL 5 MG CAP PO SCH ×2 (08:42→21:00)
[2017-10-04] MEDS: LISINOPRIL 20 MG TAB PO SCH (08:42)
[2017-10-04] MEDS: DOXYCYCLINE HYCLATE 100 MG CAP PO SCH (08:42)
[2017-10-04] MEDS: traMADol HCL 50 MG TAB PO SCH ×3 (08:52→17:42)
[2017-10-04 09:30] LABS: INTERNATIONAL NORMALIZED RATIO 3.1 RATIO; PROTHROMBIN TIME - PATIENT 31.3 SEC (9.8-11.6)
[2017-10-04 09:56] LABS: BICARBONATE 25.4 MEQ/L (21.0-32.0); CREATININE 2.62 MG/DL (0.60-1.30)
--- NOTE | 2017-10-04 10:04 | RADRPT ---
EXAM DATE/TIME: 10/04/2017 09:26 [facility] COMPARISON: CHEST SINGLE AP, October 02, 2017, 15:58. INDICATIONS : Shortness of breath. MEDICAL HISTORY : None. SURGICAL HISTORY : None. ENCOUNTER: Subsequent ACUITY: 3 days PAIN SCORE: 0/10 LOCATION: Bilateral chest FINDINGS: Portable AP view of the chest demonstrates a normal-sized cardiac silhouette. Lungs are underinflated with mild bibasilar opacity. No effusion, consolidation, or pneumothorax is identified. Bones and so ft tissues demonstrate no acute finding. CONCLUSION: Underinflation with mild bibasilar opacity consistent with atelectasis. Otherwise, no acute finding i s identified. Jorge Robledo MD on October 04, 2017 at 9:55 Board Certified Radiologist. This report was verified electronically.
[2017-10-04] MEDS: SODIUM CHLOR 0.9% 1000 ML INJ 1,000 ML IV SCH ×2 (10:52→23:44)
[2017-10-04] MEDS: LEVOFLOXACIN 750 MG PREMIX INJ 150 ML IV SCH (10:52)
--- NOTE | 2017-10-04 10:52 | PD.PN.STU ---
Subjective Remarks Pt is a 82 year old male with history of COPD CHF and chronic A fib on hopsi day 2. Pt was admitted for respiratory failure due to severe COPD exacerbation. He is currently being treated with solumedrol IV, lasix IV, doxy PO, and duoneb. Today patient reports feeling better with no new complains. admits to sob, decreased energy and cough, but they are improving. denies any hemoptysis, palpitations fever or chills. Denies N/V/D. Objective Vitals Vital Signs Date Time Temp Pulse Resp B/P (MAP) Pulse Ox O2 Delivery O2 Flow Rate FiO2 10/04/17 08:16 130 10/04/17 08:00 96.2 107 20 131/65 (87) 97 10/04/17 07:32 98 Nasal Cannula 2.00 10/04/17 04:02 94 10/04/17 04:00 98.1 102 20 134/80 (98) 95 10/04/17 00:06 119 10/04/17 00:00 98.1 78 18 109/73 (85) 93 10/03/17 23:48 96 Nasal Cannula 2.00 10/03/17 20:38 95 Nasal Cannula 2.00 10/03/17 20:23 90 10/03/17 20:15 Nasal Cannula 2.00 10/03/17 20:00 97.7 97 18 104/69 (81) 94 10/03/17 19:43 22 10/03/17 17:43 99 Nasal Cannula 2.00 10/03/17 15:30 97.8 91 20 120/57 (78) 97 10/03/17 13:32 81 16 131/61 (84) 97 Nasal Cannula 2.00 10/03/17 12:08 103 20 134/68 (90) 95 Nasal Cannula 2.00 I/O 10/03/17 10/03/17 10/03/17 10/04/17 10/04/17 10/04/17 07:00 15:00 23:00 07:00 15:00 23:00 Output Total 500 ml 250 ml Balance -500 ml -250 ml Output Urine Total 500 ml 250 ml # Voids 2 Result Diagram: 10/02/17 1555 10/04/17 0800 Objective Remarks GENERAL: WN/WD pleasant male with no acute distress SKIN: Warm and dry. HEAD: Normocephalic. EYES: No scleral icterus. No injection or drainage. NECK: Supple, trachea midline. No JVD or lymphadenopathy. CARDIOVASCULAR: Tachycardic with irregular rate. no murmurs rubs or gallops RESPIRATORY: breath sounds decreased bilaterally with diffuse wheezes. no crackles GASTROINTESTINAL: Abdomen soft, non-tender, nondistended. MUSCULOSKELETAL: No cyanosis, or edema. BACK: Nontender without obvious deformity. No CVA tenderness. A/P Assessment and Plan 68 year old male with h/o COPD, CHF, HTN and chronic a fib admitted for respiratory failure 2/2 severe COPD exacerbation. 1) Respiratory failure 2/2 COPD - Pt feels better but still has significant wheezing and SOB Satting 97 on 2L. Will increase solumedrol from 60 mg to 125 mg IV q6hr x 72 hr. WIll change doxy PO to IV. Conitnue with nebs PRN. 2) Weakness - consult PT for assessment 3) Chronic A Fib - rate is uncontrolled at 130. Will increase metoprolol dose from 60 to 75mg PO BID. Anticoagulatuion with coumadin 4) HTN - continue home medication of lisinopril 5) Hyperlipidemia - continue home statin treatment 6) Hyperglycemia - likely due to steroid medication 7) DVT proph - Coumadin Cezar Campbell M3 Oct 04, 2017 10:52
[2017-10-04] MEDS ORDERED: methylPREDNISolone SOD SUCC 125 MG/2 ML VIAL IV PUSH ONE (11:00)
--- NOTE | 2017-10-04 15:06 | ECHRPT ---
Indication: HEART FAILURE CONCLUSIONS Normal left ventricular size. Moderate concentric left ventricular hypertrophy. The left atrial size is mildly dilated. Mild mitral valve regurgitation. There is mild to moderate tricuspid valve regurgitation. There is estimated mild pulmonary hypertension present (47 mmHg). The pulmonary valve is not well visualized. BP: 131 / 61 HR: 81 Rhythm: MEASUREMENTS (Male / Female) Normal Values Technical Quality:Good 2D ECHO LV Diastolic Diameter PLAX 4.1 cm 4.2 - 5.9 / 3.9 - 5.3 cm LV Systolic Diameter PLAX 3.1 cm IVS Diastolic Thickness 2.2 cm 0.6 - 1.0 / 0.6 - 0.9 cm LVPW Diastolic Thickness 0.9 cm 0.6 - 1.0 / 0.6 - 0.9 cm LV Relative Wall Thickness 0.8 RV Internal Dim ED PLAX 3.1 cm LA Systolic Diameter LX 4.5 cm 3.0 - 4.0 / 2.7 - 3.8 cm DOPPLER Mitral E Point Velocity 76.0 cm/s TR Peak Velocity 341.0 cm/s TR Peak Gradient 46.5 mmHg FINDINGS LEFT VENTRICLE Normal left ventricular size. Moderate concentric left ventricular hypertrophy. The left ventricular systolic function is normal with an estimated ejection fraction in the range of 60-65%. RIGHT VENTRICLE Normal right ventricular size and systolic function. LEFT ATRIUM The left atrial size is mildly dilated. RIGHT ATRIUM The right atrial size is normal. ATRIAL SEPTUM Normal atrial septal thickness without atrial level shunting by limited color doppler interrogation. AORTA The aortic root and proximal ascending aorta are normal in size on limited imaging. MITRAL VALVE Mild mitral valve regurgitation. AORTIC VALVE Trileaflet aortic valve. No aortic valve stenosis or regurgitation. TRICUSPID VALVE There is mild to moderate tricuspid valve regurgitation. There is estimated mild pulmonary hypertension present (47 mmHg). PULMONARY VALVE The pulmonary valve is not well visualized. VESSELS The inferior vena cava is normal in size. PERICARDIUM No pericardial effusion. Misael Espinoza MD, FACC (Electronically Signed) Final Date:04 October 2017 15:05
--- NOTE | 2017-10-04 17:06 | HHI.PR ---
Subjective Remarks As per RN patient had a run of 10 bests of non sustained VT Patient states still feels SOB but is better than yesterday. Denies fever or chills (+) cough sating 97% on 2 liters nasal canula. Objective Vitals Vital Signs Date Time Temp Pulse Resp B/P (MAP) Pulse Ox O2 Delivery O2 Flow Rate FiO2 10/04/17 16:00 97.7 87 18 131/62 (85) 96 10/04/17 15:18 97 Nasal Cannula 2.00 10/04/17 12:00 98.1 95 22 130/104 (113) 96 10/04/17 11:34 101 10/04/17 08:16 130 10/04/17 08:00 Nasal Cannula 2.00 50 10/04/17 08:00 96.2 107 20 131/65 (87) 97 10/04/17 07:32 98 Nasal Cannula 2.00 10/04/17 04:02 94 10/04/17 04:00 98.1 102 20 134/80 (98) 95 10/04/17 00:06 119 10/04/17 00:00 98.1 78 18 109/73 (85) 93 10/03/17 23:48 96 Nasal Cannula 2.00 10/03/17 20:38 95 Nasal Cannula 2.00 10/03/17 20:23 90 10/03/17 20:15 Nasal Cannula 2.00 10/03/17 20:00 97.7 97 18 104/69 (81) 94 10/03/17 19:43 22 10/03/17 17:43 99 Nasal Cannula 2.00 I/O 10/03/17 10/03/17 10/03/17 10/04/17 10/04/17 10/04/17 07:00 15:00 23:00 07:00 15:00 23:00 Output Total 500 ml 250 ml Balance -500 ml -250 ml Output Urine Total 500 ml 250 ml # Voids 2 Result Diagram: 10/02/17 1555 10/04/17 0800 Imaging Last Impressions Chest X-Ray 10/04/17 0000 Signed Impressions: Service Date/Time: Wednesday, October 04, 2017 09:26 - CONCLUSION: Underinflation with mild bibasilar opacity consistent with atelectasis. Otherwise, no acute finding is identified. Jorge Robledo MD Objective Remarks AAOx3 The patient is in moderate respiratory distress. There is diffuse bilateral wheezing mostly in expiratory phase on bilateral lung hemphill. (+) use of accesory muscles of respiration Abdomen is soft, non tender, non distended No edema observed on lower extremities Medications and IVs Current Medications Medications (Trade) Dose Ordered Sig/Aishwarya Route Start Time Stop Time Status Last Admin (Zofran Inj) 4 mg Q6H PRN IVP 10/02/17 18:30 (Narcan Inj) 0.4 mg UNSCH PRN IV PUSH 10/02/17 18:30 (Milk Of Magnesia Liq) 30 ml Q12H PRN PO 10/02/17 18:30 (Senokot) 17.2 mg Q12H PRN PO 10/02/17 18:30 (Dulcolax Supp) 10 mg DAILY PRN RECTAL 10/02/17 18:30 (Lactulose Liq) 30 ml DAILY PRN PO 10/02/17 18:30 10/04/17 08:38 (NS Flush) 2 ml BID IV FLUSH 10/02/17 21:00 10/04/17 08:42 (NS Flush) 2 ml UNSCH PRN IV FLUSH 10/02/17 18:30 10/04/17 05:39 (KCl) 20 meq BID PO 10/02/17 21:00 10/04/17 08:39 (Duoneb Neb) 1 ampule Q4HR NEB INH 10/02/17 20:00 10/04/17 15:18 (Albuterol Neb) 2.5 mg Q2HR NEB PRN INH 10/02/17 19:30 10/04/17 09:57 (Robitussin Dm 200-20 Mg/10 ml Liq) 10 ml Q4H PRN PO 10/02/17 19:30 (Zyloprim) 300 mg DAILY PO 10/03/17 09:00 10/04/17 08:41 (Colchicine) 0.6 mg MoWeFr PO 10/02/17 19:30 10/02/17 19:57 (Proscar) 5 mg DAILY PO 10/02/17 19:30 10/04/17 08:42 (Prinivil) 20 mg DAILY PO 10/02/17 19:30 Future Hold 10/04/17 08:42 (Claritin) 10 mg DAILY PO 10/03/17 09:00 10/04/17 08:41 (Minipress) 5 mg BID PO 10/02/17 21:00 10/04/17 08:42 (Flomax) 0.4 mg HS PO 10/02/17 21:00 10/03/17 21:59 (Ultram) 50 mg TID PO 10/03/17 09:00 10/03/17 18:00 (Coumadin) 2.5 mg SuTuWeThFrSa@1600 PO 10/02/17 19:34 Future Hold 10/03/17 16:00 (Coumadin) 5 mg Mo@1600 PO 10/07/17 16:00 Future Hold (Protonix) 20 mg DAILY PO 10/03/17 09:00 10/04/17 08:41 (Pravachol) 40 mg HS PO 10/02/17 21:00 10/03/17 22:00 (Vasotec Inj) 1.25 mg Q6H PRN IV PUSH 10/02/17 19:30 (SoluMEDROL INJ) 60 mg Q6HR IV PUSH 10/04/17 12:00 10/04/17 12:14 (Lopressor) 50 mg BID PO 10/04/17 21:00 Levofloxacin/ Dextrose 150 ml @ 100 mls/hr Q48H IV 10/04/17 11:00 10/04/17 10:52 Sodium Chloride 1,000 ml @ 84 mls/hr [id number] IV 10/04/17 10:45 10/04/17 10:52 A/P Problem List: (1) Acute respiratory failure ICD Code: J96.00 - Acute respiratory failure, unspecified whether with hypoxia or hypercapnia Status: Acute Assessment and Plan 1. Acute respiratory failure with hypoxia likely due to COPD exacerbation from likely underlying bronchitis and CHF exacerbation. - At this time, patient has improved overnight and wean off of BiPAP now on 2 L nasal cannula. Continue with bronchodilator per nebulizer, steroids with IV Solu-Medrol will be decreased to every 8 hours in the morning and IV diuretics, Lasix. Monitor intake and output closely, initiate doxycycline for bronchitis. Obtain 2-D echo to evaluate EF. 10/04 Patient in moderate respiratory distress, tachypneic. Ordered an extra dose of 125 mg of IV Solumedrol. I will increase the frequency of the scheduled Solu-Medrol from 60 mg IV every 8 hours to 60 mg IV every 6 hours. Continue duo nebs inhaler treatments. I will hold Lasix given rising creatinine , doubt that this is congestive heart failure. 2-D echocardiogram showed normal left ventricular size, moderate concentric left ventricle hypertrophy, mild MR, mild to moderate TR and moderate pulmonary hypertension (47 mmHg) 2. Deconditioning with generalized weakness due to acute respiratory failure and acute bronchitis -await physical therapy evaluation 3. Chronic atrial fibrillation -currently rate controlled. Continue with metoprolol and warfarin, monitor INR. INR therapeutic on admission. 10/04 INR supratherapeutic at 3.1 hold Coumadin today. Continue to monitor PT/ INR daily. 4. History hypertension resume antihypertensive lisinopril, Vasotec when necessary for any uncontrolled blood pressure 10/04 BP stable. will hold Francisco inhibitor given rising creatinine. 5. Hyperlipidemia history-continue statin 6. Chronic kidney disease stage III -stable overnight, monitor on diuretics, avoid nephrotoxins. 10/04 patient now has a acute kidney injury on chronic kidney disease stage III. Creatinine went up from 1.86-2.62. I will discontinue diuretics and start the patient on IV normal saline at 84 mL's per hour. Continue to monitor BUN/ creatinine, strict I's and O's and avoid nephrotoxins. 7. DVT prophylaxis-on Coumadin. Discharge Planning Continue to monitor in the medical floor. Patient still requiring IV steroids and with bilateral wheezing on exam as well as respiratory distress. Problem Qualifiers (1) Acute respiratory failure: Qualified Codes: J96.01 - Acute respiratory failure with hypoxia Anam Burgess MD Oct 04, 2017 17:06
[2017-10-04] MEDS: PRAVASTATIN SOD 40 MG TAB PO SCH (20:59)
[2017-10-04] MEDS: METOPROLOL TARTRATE 50 MG TAB PO SCH (21:00)
[2017-10-04] MEDS: TAMSULOSIN HCL 0.4 MG CAP PO SCH (21:00)
[2017-10-04] MEDS: COLCHICINE 0.6 MG TAB PO SCH (21:04)
[2017-10-05] VITALS (22 sets, daily range): BP systolic 115–152; BP diastolic 67–83; PULSE 61–114; RESP 19–25; TEMP 97.1–98.8; O2SAT 96–99
[2017-10-05] MEDS: RESP: ALBUTEROL 2.5 MG/IPRATROPIUM 0.5 MG NEB (SCH) INH ×3 (00:52→07:41)
[2017-10-05] MEDS: methylPREDNISolone SOD SUCC 125 MG/2 ML VIAL IV PUSH SCH ×4 (05:25→22:59)
[2017-10-05 07:42] LABS: INTERNATIONAL NORMALIZED RATIO 3.3 RATIO; PROTHROMBIN TIME - PATIENT 32.8 SEC (9.8-11.6)
[2017-10-05] MEDS: ALLOPURINOL 300 MG TAB PO SCH (08:34)
[2017-10-05] MEDS: PANTOPRAZOLE SOD 20 MG DELAYED RELEASE TAB PO SCH (08:34)
[2017-10-05] MEDS: POTASSIUM CHLORIDE 20 MEQ CONTROLLED RELEASE TAB PO SCH ×2 (08:35→21:06)
[2017-10-05] MEDS: PRAZOSIN HCL 5 MG CAP PO SCH ×2 (08:35→21:06)
[2017-10-05] MEDS: SODIUM CHLORIDE 0.9% FLUSH 10 ML FLUSH IV FLUSH SCH ×2 (08:35→21:07)
[2017-10-05] MEDS: METOPROLOL TARTRATE 50 MG TAB PO SCH ×2 (08:35→21:06)
[2017-10-05] MEDS: FINASTERIDE 5 MG TAB PO SCH (08:35)
[2017-10-05] MEDS: LORATADINE 10 MG TAB PO SCH (08:35)
[2017-10-05] MEDS: traMADol HCL 50 MG TAB PO SCH ×3 (08:36→17:20)
[2017-10-05] MEDS: SODIUM CHLOR 0.9% 1000 ML INJ 1,000 ML IV SCH (10:41)
[2017-10-05] MEDS ORDERED: RESP: ALBUTEROL 2.5MG/0.5ML CONTINUOUS NEB 12-PACK NEB SCH (11:00)
[2017-10-05] MEDS ORDERED: RESP: RACEPINEPHRINE 2.25% 0.5 ML NEB NEB ONE (11:45)
[2017-10-05] MEDS ORDERED: FUROSEMIDE 100 MG/10 ML VIAL IV PUSH ONE (11:45)
[2017-10-05] MEDS: RESP: ALBUTEROL 2.5 MG/IPRATROPIUM 0.5 MG NEB (SCH) NEB ×3 (12:00→19:24)
[2017-10-05] MEDS ORDERED: RESP: ALBUTEROL 2.5 MG/IPRATROPIUM 0.5 MG NEB (PRN) NEB (12:00)
--- NOTE | 2017-10-05 12:09 | PD.CONS ---
[facility] Service Nephrology Consult Requested By Reason for Consult Acute kidney injury Primary Care Physician [facility] History of Present Illness 82 year old male admitted with 3 day history of shortness of breath. Has history of COPD. Was treated with bronchodilators and steroids. Also given Lasix. Admission creatinine was 1.86. No previous labs are available, however patient's reports that patient is followed by a director of strategic communications at [facility] in [place] and his baseline creatinine is around 1.6. History of RODRIGO due to radiocontrast is also described. Creatinine increased to 2.62 as of yesterday. Lasix held. IVF started. Urine analysis is not available. Echo revealed EF of 60 -65%. Concentric LVF. Review of Systems Respiratory: COMPLAINS OF: Cough, Wheezing, Shortness of breath Cardiovascular: DENIES: Chest pain, Palpitations Gastrointestinal: COMPLAINS OF: Abdominal pain, DENIES: Black stools Genitourinary: COMPLAINS OF: Urinary frequency Musculoskeletal: DENIES: Muscle aches Neurologic: DENIES: Headache Past Family Social History Allergies: Coded Allergies: Iodinated Contrast- Oral and IV Dye (Verified Allergy, Severe, 10/02/17) pt's states it caused chronic renal failure meloxicam (Verified Allergy, Intermediate, 10/02/17) indomethacin (Verified Allergy, Unknown, 10/02/17) Past Medical History COPD Nonspecific CHF Atrial fibrillation, chronic Hypertension Past Surgical History Right knee surgery Left hip surgery Reported Medications Guaifenesin 200 Mg Tablet 200 Mg PO TID Lisinopril 20 Mg Tab 20 Mg PO DAILY Finasteride 5 Mg Tab 5 Mg PO DAILY Tamsulosin (Tamsulosin HCl) 0.4 Mg Cap 0.4 Mg PO HS Warfarin 5 Mg 2.5 Mg PO SUTUWETHFRSA Take 1/2 tablet (2.5mg) daily on Saturday,Saturday,Saturday,,Saturday and Saturday Warfarin 5 Mg Tab 5 Mg PO SATURDAY Simvastatin 20 Mg Tab 20 Mg PO HS Tramadol (Tramadol HCl) 50 Mg Tab 50 Mg PO TID Allopurinol 300 Mg Tab 300 Mg PO DAILY Lasix (Furosemide) 20 Mg Tab 20 Mg PO DAILY Metoprolol Tartrate 25 Mg Tab 25 Mg PO BID Prazosin (Prazosin HCl) 5 Mg Cap 5 Mg PO BID Omeprazole 20 Mg Tab 20 Mg PO DAILY Ventolin Hfa 18 GM Inh (Albuterol Sulfate) 90 Mcg/Act Aer 2 Puff INH QID Vitamin D3 (Cholecalciferol) 2,000 Unit Cap 2,000 Units PO DAILY Magnesium Oxide 420 Mg Tab 420 Mg PO BID Colchicine 0.6 Mg Cap 0.6 Mg PO MOWEFR Take 1 capsule (0.6mg) daily on Saturday,Saturday and Saturday Dawson (Hydrocodone-Acetaminophen) 5 Mg-325 Mg Tab 1 Tab PO Q8HR PRN Colace (Docusate Sodium) 100 Mg Capsule 100 Mg PO BID PRN Claritin (Loratadine) 10 Mg Tablet 10 Mg PO DAILY Flonase Nasal Commerce (Fluticasone Nasal Commerce) 50 Mcg/Act Commerce 2 Commerce EACH NARE DAILY Diclofenac Topical 1% Gel 1 Applic TOPICAL BID PRN Symbicort Inh (Budesonide/Formoterol Fumarate) 80-4.5 Mcg/Act Aero 2 Puff INH Q12HR Active Ordered Medications Current Medications Medications (Trade) Dose Ordered Sig/Aishwarya Route Start Time Stop Time Status Last Admin (Zofran Inj) 4 mg Q6H PRN IVP 10/02/17 18:30 (Narcan Inj) 0.4 mg UNSCH PRN IV PUSH 10/02/17 18:30 (Milk Of Magnesia Liq) 30 ml Q12H PRN PO 10/02/17 18:30 (Senokot) 17.2 mg Q12H PRN PO 10/02/17 18:30 (Dulcolax Supp) 10 mg DAILY PRN RECTAL 10/02/17 18:30 (Lactulose Liq) 30 ml DAILY PRN PO 10/02/17 18:30 10/04/17 08:38 (NS Flush) 2 ml BID IV FLUSH 10/02/17 21:00 10/04/17 21:01 (NS Flush) 2 ml UNSCH PRN IV FLUSH 10/02/17 18:30 10/04/17 05:39 (KCl) 20 meq BID PO 10/02/17 21:00 10/05/17 08:35 (Robitussin Dm 200-20 Mg/10 ml Liq) 10 ml Q4H PRN PO 10/02/17 19:30 (Zyloprim) 300 mg DAILY PO 10/03/17 09:00 1/13/18 08:34 (Colchicine) 0.6 mg MoWeFr PO 10/02/17 19:30 10/04/17 21:04 (Proscar) 5 mg DAILY PO 10/02/17 19:30 10/05/17 08:35 (Prinivil) 20 mg DAILY PO 10/02/17 19:30 Future Hold 10/04/17 08:42 (Claritin) 10 mg DAILY PO 10/03/17 09:00 10/05/17 08:35 (Minipress) 5 mg BID PO 10/02/17 21:00 10/05/17 08:35 (Flomax) 0.4 mg HS PO 10/02/17 21:00 10/04/17 21:00 (Ultram) 50 mg TID PO 10/03/17 09:00 10/05/17 08:36 (Coumadin) 2.5 mg SuTuWeThFrSa@1600 PO 10/02/17 19:34 Future Hold 10/03/17 16:00 (Coumadin) 5 mg Mo@1600 PO 10/07/17 16:00 Future Hold (Protonix) 20 mg DAILY PO 10/03/17 09:00 10/05/17 08:34 (Pravachol) 40 mg HS PO 10/02/17 21:00 10/04/17 20:59 (Vasotec Inj) 1.25 mg Q6H PRN IV PUSH 10/02/17 19:30 (Lopressor) 50 mg BID PO 10/04/17 21:00 10/05/17 08:35 Levofloxacin/ Dextrose 150 ml @ 100 mls/hr Q48H IV 10/04/17 11:00 10/04/17 10:52 (SoluMEDROL INJ) 125 mg Q6HR IV PUSH 10/05/17 12:00 10/05/17 11:03 (Duoneb Neb) 1 ampule Q4HR WHILE AWAKE NEB NEB 10/05/17 12:00 UNV (Duoneb Neb) 1 ampule Q2HR NEB PRN NEB 10/05/17 12:00 UNV Family History Father had a stroke and hypertension Social History Occasional ETOH, no tobacco Physical Exam Vital Signs Vital Signs Date Time Temp Pulse Resp B/P (MAP) Pulse Ox O2 Delivery O2 Flow Rate FiO2 10/05/17 08:40 96 Nasal Cannula 2.00 10/05/17 08:00 104 10/05/17 08:00 97.1 74 20 130/69 (89) 98 10/05/17 07:43 98 Nasal Cannula 2.00 10/05/17 04:03 114 10/05/17 04:00 97.5 76 19 152/82 (105) 96 10/05/17 00:54 97 Nasal Cannula 2.00 10/05/17 00:19 105 10/05/17 00:00 97.2 72 19 136/83 (100) 97 10/04/17 20:19 98 10/04/17 20:15 Nasal Cannula 2.00 10/04/17 20:00 97.9 87 20 119/79 (92) 98 10/04/17 17:00 95 10/04/17 16:00 97.7 87 18 131/62 (85) 96 10/04/17 15:18 97 Nasal Cannula 2.00 Physical Exam GENERAL: elderly, chronically ill appearing male. SKIN: Warm and dry. HEAD: Normocephalic. EYES: No scleral icterus. No injection or drainage. NECK: Supple, trachea midline. No JVD or lymphadenopathy. CARDIOVASCULAR: irregular tachycardia RESPIRATORY: diffuse bilateral wheezing and rhonchi GASTROINTESTINAL: distended abdomen which is firm, umbilical hernia, most likely has bladder distension MUSCULOSKELETAL: No cyanosis, or edema. BACK: Nontender without obvious deformity. No CVA tenderness. Laboratory Laboratory Tests Test 10/05/17 06:30 Prothrombin Time 32.8 Prothromb Time International Ratio 3.3 Date/Time Source Procedure Growth Status 10/02/17 15:55 Nasal Aspirate Influenza Types A,B Antigen (CHANDLER) - Final NEGATIVE FOR FLU A AND B ANTIGEN.... Complete Result Diagram: 10/02/17 1555 10/04/17 0800 Assessment and Plan Problem List: (1) Acute kidney injury ICD Codes: N17.9 - Acute kidney failure, unspecified Plan: Will have to rule out urinary retention. RN was instructed to obtain bladder scan, but there were orders to place a Gandhi catheter. Gandhi resulted in significant urine output. Avoid nephrotoxic agents. Clinically does not appear to be in fluid overload, respiratory difficulty likely due to COPD exacerbation. Monitor urine output and renal function. (2) COPD exacerbation ICD Codes: J44.1 - Chronic obstructive pulmonary disease with (acute) exacerbation Plan: bronchodilators and steroids. (3) Congestive heart failure ICD Codes: I50.9 - Heart failure, unspecified Status: Acute Plan: may have diastolic dysfunction. No evidence of systolic heart failure (4) Atrial fibrillation ICD Codes: I48.91 - Unspecified atrial fibrillation Plan: rate control measures. INR is 3.3 Assessment and Plan Thanks for the consult. Problem Qualifiers (1) Congestive heart failure: Qualified Codes: I50.9 - Heart failure, unspecified Semaj Garza MD Oct 05, 2017 12:09
--- NOTE | 2017-10-05 12:11 | HHI.PR ---
Subjective Remarks Patient c/o sob. Denies fevers or chills. patient is in respiratory distress. afebrile Objective Vitals Vital Signs Date Time Temp Pulse Resp B/P (MAP) Pulse Ox O2 Delivery O2 Flow Rate FiO2 10/05/17 08:40 96 Nasal Cannula 2.00 10/05/17 08:00 104 10/05/17 08:00 97.1 74 20 130/69 (89) 98 10/05/17 07:43 98 Nasal Cannula 2.00 10/05/17 04:03 114 10/05/17 04:00 97.5 76 19 152/82 (105) 96 10/05/17 00:54 97 Nasal Cannula 2.00 10/05/17 00:19 105 10/05/17 00:00 97.2 72 19 136/83 (100) 97 10/04/17 20:19 98 10/04/17 20:15 Nasal Cannula 2.00 10/04/17 20:00 97.9 87 20 119/79 (92) 98 10/04/17 17:00 95 10/04/17 16:00 97.7 87 18 131/62 (85) 96 10/04/17 15:18 97 Nasal Cannula 2.00 10/04/17 12:00 98.1 95 22 130/104 (113) 96 I/O 10/04/17 10/04/17 10/04/17 10/05/17 10/05/17 10/05/17 07:00 15:00 23:00 07:00 15:00 23:00 Intake Total 480 ml 480 ml Output Total 250 ml 800 ml 700 ml Balance -250 ml -320 ml -220 ml Intake Oral 480 ml 480 ml Output Urine Total 250 ml 800 ml 700 ml Result Diagram: 10/02/17 1555 10/04/17 0800 Imaging Last Impressions Chest X-Ray 10/04/17 0000 Signed Impressions: Service Date/Time: Wednesday, October 04, 2017 09:26 - CONCLUSION: Underinflation with mild bibasilar opacity consistent with atelectasis. Otherwise, no acute finding is identified. Jorge Robledo MD Objective Remarks AAOx3 The patient is in severe respiratory distress. There is diffuse bilateral wheezing mostly in expiratory phase on bilateral lung hemphill and wheezing at the level of the larynx. (+) use of accessory muscles of respiration Abdomen is soft, non tender, non distended No edema observed on lower extremities Medications and IVs Current Medications Medications (Trade) Dose Ordered Sig/Aishwarya Route Start Time Stop Time Status Last Admin (Zofran Inj) 4 mg Q6H PRN IVP 10/02/17 18:30 (Narcan Inj) 0.4 mg UNSCH PRN IV PUSH 10/02/17 18:30 (Milk Of Magnesia Liq) 30 ml Q12H PRN PO 10/02/17 18:30 (Senokot) 17.2 mg Q12H PRN PO 10/02/17 18:30 (Dulcolax Supp) 10 mg DAILY PRN RECTAL 10/02/17 18:30 (Lactulose Liq) 30 ml DAILY PRN PO 10/02/17 18:30 10/04/17 08:38 (NS Flush) 2 ml BID IV FLUSH 10/02/17 21:00 10/04/17 21:01 (NS Flush) 2 ml UNSCH PRN IV FLUSH 10/02/17 18:30 10/04/17 05:39 (KCl) 20 meq BID PO 10/02/17 21:00 10/05/17 08:35 (Duoneb Neb) 1 ampule Q4HR NEB INH 10/02/17 20:00 10/05/17 07:41 (Albuterol Neb) 2.5 mg Q2HR NEB PRN INH 10/02/17 19:30 10/04/17 09:57 (Robitussin Dm 200-20 Mg/10 ml Liq) 10 ml Q4H PRN PO 10/02/17 19:30 (Zyloprim) 300 mg DAILY PO 10/03/17 09:00 10/05/17 08:34 (Colchicine) 0.6 mg MoWeFr PO 10/02/17 19:30 10/04/17 21:04 (Proscar) 5 mg DAILY PO 10/02/17 19:30 10/05/17 08:35 (Prinivil) 20 mg DAILY PO 10/02/17 19:30 Future Hold 10/04/17 08:42 (Claritin) 10 mg DAILY PO 10/03/17 09:00 10/05/17 08:35 (Minipress) 5 mg BID PO 10/02/17 21:00 10/05/17 08:35 (Flomax) 0.4 mg HS PO 10/02/17 21:00 10/04/17 21:00 (Ultram) 50 mg TID PO 10/03/17 09:00 10/05/17 08:36 (Coumadin) 2.5 mg SuTuWeThFrSa@1600 PO 10/02/17 19:34 Future Hold 10/03/17 16:00 (Coumadin) 5 mg Mo@1600 PO 10/07/17 16:00 Future Hold (Protonix) 20 mg DAILY PO 10/03/17 09:00 10/05/17 08:34 (Pravachol) 40 mg HS PO 10/02/17 21:00 10/04/17 20:59 (Vasotec Inj) 1.25 mg Q6H PRN IV PUSH 10/02/17 19:30 (Lopressor) 50 mg BID PO 10/04/17 21:00 10/05/17 08:35 Levofloxacin/ Dextrose 150 ml @ 100 mls/hr Q48H IV 10/04/17 11:00 10/04/17 10:52 (SoluMEDROL INJ) 125 mg Q6HR IV PUSH 10/05/17 12:00 10/05/17 11:03 (Albuterol Neb Continuous Pack) 1 pack Q6H NEB 10/05/17 11:00 (Racepinephrine 2.25% Neb) 0.5 ml ONCE ONCE NEB 10/05/17 11:45 10/05/17 11:46 UNV A/P Problem List: (1) Acute respiratory failure ICD Code: J96.00 - Acute respiratory failure, unspecified whether with hypoxia or hypercapnia Status: Acute (2) Acute diastolic heart failure ICD Code: I50.31 - Acute diastolic (congestive) heart failure (3) COPD exacerbation ICD Code: J44.1 - Chronic obstructive pulmonary disease with (acute) exacerbation Assessment and Plan 1. Acute hypoxemic respiratory failure. 2. COPD exacerbation. 3. Suspected acute diastolic congestive heart failure. Initially patient placed on BiPAP and improved overnight and was weaned off to 2 L nasal cannula. The patient was started on DuoNeb nebulizer treatments, IV Solu-Medrol and patient started on doxycycline. Doxycycline was discontinued and the patient was started on IV Levaquin. The patient became very wheezy and a moderate respiratory distress for which the patient was given 125 minutes of IV Solu-Medrol on 10/04 and the dose of Solu -Medrol was increased back up to 60 mg IV every 6 hours. Patient initially was placed on Lasix, however given creatinine rise then this was held and the patient was placed on IV fluids at a rate of 84 mL's per hour. 2-D echocardiogram was obtained and showed normal left ventricular size, moderate concentric left ventricle hypertrophy, mild MR, mild to moderate TR and moderate pulmonary hypertension (47 mmHg). 10/05 patient currently on moderate to severe respiratory distress with wheezing audible in bilateral lung hemphill however most prominent In the throat at the level of the larynx. I will order a racemic epinephrine nebulizer treatment and afterwards will place on continuous nebulizer treatments. Check chest x- ray stat, will increase the dose of Solu-Medrol 125 every 6 hours. If there is no improvement then will place back on BiPAP and transferred to the intensive care unit. Will consult nailing machine operator automatic. 4. Chronic atrial fibrillation 5. Elevated troponin 6. Hypertension] 8. Hyperlipidemia history-continue statin. EKG on admission and reviewed by me showed atrial fibrillation with marked right axis deviation at a ventricular rate of 80 bpm, QTC of 405. No ST-T changes suggestive of active ischemiaAtrial fibrillation rate controlled on metoprolol tartrate. Continue. Will trend cardiac enzymes which are likely elevated secondary to demand ischemia. Consult cardiology. Should is on chronic anti-correlation with Coumadin, INR became supratherapeutic on 10/04 so Coumadin was held on this date. PT/INR daily. We'll consult pharmacy to help with dosing. Patient on metoprolol and lisinopril for hypertension. Given elevated creatinine I will hold CANDACE inhibitor and continue beta carlos. 7. Deconditioning with generalized weakness due to acute respiratory failure and acute bronchitis -await physical therapy evaluation 9. Chronic kidney disease stage III -stable overnight, monitor on diuretics, avoid nephrotoxins. 10. RODRIGO on admission patient had elevated creatinine at 1.86 which has slowly been trending up and on 05/09 2.62. Lasix was held and the patient was place on gentle IV fluids. Patient is on severe respiratory distress, DC IV fluids and give 80 mg of IV Lasix once and consult nephrology for further recommendations. 7. DVT prophylaxis-on Coumadin - held due to supratherapeutic INR. Discharge Planning Transfer to the intensive care unit. 45 minutes of critical care time spent on patient care. Kissick test with respiratory therapist, RN. Problem Qualifiers (1) Acute respiratory failure: Qualified Codes: J96.01 - Acute respiratory failure with hypoxia Anam Burgess MD Oct 05, 2017 12:11
--- NOTE | 2017-10-05 12:25 | RADRPT ---
EXAM DATE/TIME: 10/05/2017 11:56 [facility] COMPARISON: CHEST SINGLE AP, October 04, 2017, 9:26. INDICATIONS : Cough, congestion, and shortness of breath. MEDICAL HISTORY : None. SURGICAL HISTORY : None. ENCOUNTER: Subsequent ACUITY: 4 - 6 days PAIN SCORE: 0/10 LOCATION: chest FINDINGS: Single AP view of the chest. Mild subsegmental atelectasis in the left midlung. The lungs are otherwi se clear. Cardiomediastinal silhouette within normal limits. No evidence of pleural effusion or pneum othorax. CONCLUSION: Mild left midlung atelectasis. No other acute cardiopulmonary disease identified. Siddharth Stanford MD on October 05, 2017 at 12:21 Board Certified Radiologist. This report was verified electronically.
[2017-10-05 15:55] LABS: BILIRUBIN, URINE NEG (NEG); BLOOD, URINE NEG (NEG); GLUCOSE,URINE NEG (NEG); KETONE, URINE NEG (NEG); NITRITE,URINE NEG (NEG); URINE COLOR LIGHT-YELLOW (YELLW/STRAW); URINE LEUKOCYTE ESTERASE NEG (NEG)
[2017-10-05 16:57] LABS: AUTOMATED NEUTROPHIL # 6.3 TH/MM3 (1.8-7.7); BASOPHIL % 0.5 % (0.0-2.0); EOSINOPHIL % 0.1 % (0.0-4.0); HEMATOCRIT 41.2 % (39.0-51.0); HEMOGLOBIN 13.3 GM/DL (13.0-17.0); LYMPHOCYTE # 0.2 TH/MM3 (1.0-4.8); MEAN CELL VOLUME 92.4 FL (80.0-100.0); MEAN CORPUSCULAR HEMOGLOBIN 29.8 PG (27.0-34.0); MEAN CORPUSCULAR HGB CONC 32.2 % (32.0-36.0); MEAN PLATELET VOLUME 10.4 FL (7.0-11.0); MONO % 4.7 % (0.0-8.0); MONOCYTE # 0.3 TH/MM3 (0-0.9); NEUT % 91.7 % (16.0-70.0); PLATELET COUNT 86 TH/MM3 (150-450); RED BLOOD COUNT 4.45 MIL/MM3 (4.50-5.90); RED CELL DISTRIBUTION WIDTH 17.3 % (11.6-17.2); WHITE BLOOD COUNT 6.9 TH/MM3 (4.0-11.0)
[2017-10-05 17:16] LABS: ALBUMIN 3.2 GM/DL (3.4-5.0); ALT (GPT) 53 U/L (12-78); AST (GOT) 58 U/L (15-37); BICARBONATE 25.2 MEQ/L (21.0-32.0); BLOOD UREA NITROGEN 81 MG/DL (7-18); CALCIUM 8.7 MG/DL (8.5-10.1); CHLORIDE 109 MEQ/L (98-107); CREATININE 2.41 MG/DL (0.60-1.30); GLOMERULAR FILTRATION RATE 26 ML/MIN (>89); GLUCOSE,RANDOM 155 MG/DL (74-106); SODIUM (NA) 141 MEQ/L (136-145)
[2017-10-05 17:19] LABS: ALKALINE PHOSPHATASE 117 U/L (45-117); TOTAL BILIRUBIN ADULT 0.6 MG/DL (0.2-1.0); TOTAL PROTEIN 6.5 GM/DL (6.4-8.2); TROPONIN I 0.28 NG/ML (0.02-0.05)
[2017-10-05 20:50] LABS: ALBUMIN 3.2 GM/DL (3.4-5.0); AST (GOT) 55 U/L (15-37); BICARBONATE 25.5 MEQ/L (21.0-32.0); BLOOD UREA NITROGEN 82 MG/DL (7-18); CHLORIDE 106 MEQ/L (98-107); CREATININE 2.48 MG/DL (0.60-1.30); GLOMERULAR FILTRATION RATE 25 ML/MIN (>89); GLUCOSE,RANDOM 153 MG/DL (74-106); MAGNESIUM 2.1 MG/DL (1.5-2.5); SODIUM (NA) 139 MEQ/L (136-145)
[2017-10-05 20:51] LABS: ALT (GPT) 53 U/L (12-78)
[2017-10-05 20:53] LABS: ALKALINE PHOSPHATASE 120 U/L (45-117); TOTAL BILIRUBIN ADULT 0.6 MG/DL (0.2-1.0); TOTAL PROTEIN 6.3 GM/DL (6.4-8.2)
--- NOTE | 2017-10-05 21:03 | RADRPT ---
EXAM DATE/TIME: 10/05/2017 20:26 [facility] COMPARISON: No previous studies available for comparison. INDICATIONS : Increased BUN/Creatnine. MEDICAL HISTORY : Congestive heart failure. Hypercholesterolemia. Hypertension. Atrial fibrillation. COPD. Sleep apnea. Dyspnea. Inguinal hernia. Umbilical hernia. Gastroesophageal reflux. Arthritis. BPH. Renal disease. SURGICAL HISTORY : Left total arthroplasty. Right knee replacement. ENCOUNTER: Initial ACUITY: 1 day PAIN SCORE: 0/10 LOCATION: Bilateral flank MEASUREMENTS: RIGHT KIDNEY: 14.0 x 6.2 x 6.0 cm LEFT KIDNEY: 12.2 x 6.6 x 6.2 cm FINDINGS: Both kidneys have cortical thinning and increased echogenicity typical of chronic parenchymal disease . There is mild prominence of the right renal pelvis but no perceptible calyceal distention. A 8 cm b enign appearing cyst is seen of the left upper pole. Urinary bladder is decompressed with a Gandhi catheter and grossly unremarkable. CONCLUSION: 1. Chronic parenchymal disease. 2. No obstruction or acute abnormality demonstrated. 3. Large, benign appearing cyst of the left upper pole. Jorge Wright MD on October 05, 2017 at 20:58 Board Certified Radiologist. This report was verified electronically.
[2017-10-05] MEDS: TAMSULOSIN HCL 0.4 MG CAP PO SCH (21:06)
[2017-10-05] MEDS: PRAVASTATIN SOD 40 MG TAB PO SCH (21:06)
[2017-10-06] VITALS (28 sets, daily range): BP systolic 111–133; BP diastolic 64–84; PULSE 68–103; RESP 22–24; TEMP 97.3–98.8; O2SAT 92–98
[2017-10-06 05:50] LABS: INTERNATIONAL NORMALIZED RATIO 3.1 RATIO; PROTHROMBIN TIME - PATIENT 30.8 SEC (9.8-11.6)
[2017-10-06 05:51] LABS: BICARBONATE 25.7 MEQ/L (21.0-32.0); CREATININE 2.31 MG/DL (0.60-1.30); PHOSPHORUS 3.5 MG/DL (2.5-4.9)
[2017-10-06] MEDS: methylPREDNISolone SOD SUCC 125 MG/2 ML VIAL IV PUSH SCH ×4 (06:11→22:43)
[2017-10-06] MEDS: RESP: ALBUTEROL 2.5 MG/IPRATROPIUM 0.5 MG NEB (SCH) NEB ×4 (07:40→19:30)
--- NOTE | 2017-10-06 08:15 | HHI.NPPN ---
Subjective Interval History Transferred to ICU. Gandhi placed. Excellent urine output. Renal function is slightly better. Review of Systems General Constitutional: Fatigue Respiratory Lungs: SOB, Cough Objective Data Data Vital Signs Date Time Temp Pulse Resp B/P (MAP) Pulse Ox O2 Delivery O2 Flow Rate FiO2 10/06/17 07:40 97 Nasal Cannula 3.00 10/06/17 07:30 75 10/06/17 07:30 98.8 68 24 132/84 (100) 96 10/06/17 07:30 96 Nasal Cannula 3.00 10/06/17 06:02 76 10/06/17 05:01 78 10/06/17 04:35 90 10/06/17 03:31 78 10/06/17 03:31 98.4 76 22 112/65 (81) 93 10/06/17 02:57 98 Nasal Cannula 3.00 10/06/17 02:03 79 10/06/17 01:31 98 40 10/06/17 01:03 86 10/06/17 00:13 89 10/05/17 23:25 97.8 61 24 116/68 (84) 96 10/05/17 23:25 87 10/05/17 22:25 103 10/05/17 22:24 98 40 10/05/17 21:24 98 10/05/17 20:15 100 10/05/17 19:51 99 Bi-Pap 40 10/05/17 19:51 93 10/05/17 19:51 97.6 84 21 143/73 (96) 99 10/05/17 19:24 98 40 10/05/17 18:12 97 40 10/05/17 18:00 84 10/05/17 17:00 84 10/05/17 16:00 84 10/05/17 15:00 98.8 98 25 150/67 (94) 98 10/05/17 14:00 97 Bi-Pap 10/05/17 14:00 98.8 84 24 146/67 (93) 97 10/05/17 13:41 98 40 10/05/17 12:00 97.4 80 20 115/67 (83) 96 10/05/17 08:40 96 Nasal Cannula 2.00 -: 10/05/17 1613 10/06/17 0407 Physical Exam General Appearance: Well Developed Neck Neck Exam: Neck Supple Pulmonary Resp Exam: Rhonchi Cardiology CV Exam: Irregular Gastrointestinal/Abdomen GI Exam: Soft Musculoskeletal MS Exam: Joints Intact Integumentary Skin Exam: Intact Extremeties Extremities Exam: No Edema Neurologic Neuro Exam: Moving All Extremities Assessment/Plan Problem List: (1) Acute kidney injury ICD Codes: N17.9 - Acute kidney failure, unspecified Plan: Gandhi placed yesterday, good urine output, monitor renal function. He does have underlying stage III CKD, according to patient's , his baseline creatinine is around 1.6. RODRIGO could be due to obstruction or ATN. UA is unremarkable. Avoid nephrotoxic agents. (2) COPD exacerbation ICD Codes: J44.1 - Chronic obstructive pulmonary disease with (acute) exacerbation Plan: bronchodilators and steroids. (3) Congestive heart failure ICD Codes: I50.9 - Heart failure, unspecified Status: Acute Plan: may have diastolic dysfunction. No evidence of systolic heart failure (4) Atrial fibrillation ICD Codes: I48.91 - Unspecified atrial fibrillation Plan: rate control measures. INR is 3.1 (5) Essential (primary) hypertension ICD Codes: I10 - Essential (primary) hypertension Plan: He is on Minipress. CANDACE inhibitor held. Problem Qualifiers (1) Congestive heart failure: Qualified Codes: I50.9 - Heart failure, unspecified Semaj Garza MD Oct 06, 2017 08:15
[2017-10-06] MEDS: LORATADINE 10 MG TAB PO SCH (08:36)
[2017-10-06] MEDS: PANTOPRAZOLE SOD 20 MG DELAYED RELEASE TAB PO SCH (08:36)
[2017-10-06] MEDS: POTASSIUM CHLORIDE 20 MEQ CONTROLLED RELEASE TAB PO SCH ×2 (08:36→22:06)
[2017-10-06] MEDS: ALLOPURINOL 300 MG TAB PO SCH (08:36)
[2017-10-06] MEDS: PRAZOSIN HCL 5 MG CAP PO SCH ×2 (08:36→22:06)
[2017-10-06] MEDS: METOPROLOL TARTRATE 50 MG TAB PO SCH ×2 (08:36→22:06)
[2017-10-06] MEDS: SODIUM CHLORIDE 0.9% FLUSH 10 ML FLUSH IV FLUSH SCH ×2 (08:37→21:00)
[2017-10-06] MEDS: FINASTERIDE 5 MG TAB PO SCH (08:37)
[2017-10-06] MEDS: traMADol HCL 50 MG TAB PO SCH ×3 (08:37→17:32)
--- NOTE | 2017-10-06 10:48 | HHI.PR ---
Subjective Remarks hematuria since last night denies cp sob improving off bipap - back on nasal canula Denies fevers or chills Objective Vitals Vital Signs Date Time Temp Pulse Resp B/P (MAP) Pulse Ox O2 Delivery O2 Flow Rate FiO2 10/06/17 09:00 98 10/06/17 08:00 82 10/06/17 07:40 97 Nasal Cannula 3.00 10/06/17 07:30 75 10/06/17 07:30 98.8 68 24 132/84 (100) 96 10/06/17 07:30 96 Nasal Cannula 3.00 10/06/17 06:02 76 10/06/17 05:01 78 10/06/17 04:35 90 10/06/17 03:31 78 10/06/17 03:31 98.4 76 22 112/65 (81) 93 10/06/17 02:57 98 Nasal Cannula 3.00 10/06/17 02:03 79 10/06/17 01:31 98 40 10/06/17 01:03 86 10/06/17 00:13 89 10/05/17 23:25 97.8 61 24 116/68 (84) 96 10/05/17 23:25 87 10/05/17 22:25 103 10/05/17 22:24 98 40 10/05/17 21:24 98 10/05/17 20:15 100 10/05/17 19:51 99 Bi-Pap 40 10/05/17 19:51 93 10/05/17 19:51 97.6 84 21 143/73 (96) 99 10/05/17 19:24 98 40 10/05/17 18:12 97 40 10/05/17 18:00 84 10/05/17 17:00 84 10/05/17 16:00 84 10/05/17 15:00 98.8 98 25 150/67 (94) 98 10/05/17 14:00 97 Bi-Pap 10/05/17 14:00 98.8 84 24 146/67 (93) 97 10/05/17 13:41 98 40 10/05/17 12:00 97.4 80 20 115/67 (83) 96 I/O 10/05/17 10/05/17 10/05/17 10/06/17 10/06/17 10/06/17 07:00 15:00 23:00 07:00 15:00 23:00 Intake Total 480 ml 800 ml 240 ml 700 ml Output Total 700 ml 1100 ml 1300 ml Balance -220 ml 800 ml -860 ml -600 ml Intake Oral 480 ml 240 ml 700 ml IV Total 800 ml Output Urine Total 700 ml 1100 ml 1300 ml # Bowel Movements 0 Result Diagram: 10/05/17 1613 10/06/17 0407 Imaging Last 72 hours Impressions Renal Ultrasound 10/05/17 0000 Signed Impressions: Service Date/Time: Thursday, October 05, 2017 20:26 - CONCLUSION: 1. Chronic parenchymal disease. 2. No obstruction or acute abnormality demonstrated. 3. Large, benign appearing cyst of the left upper pole. Jorge Wright MD Chest X-Ray 10/05/17 0000 Signed Impressions: Service Date/Time: Thursday, October 05, 2017 11:56 - CONCLUSION: Mild left midlung atelectasis. No other acute cardiopulmonary disease identified. Siddharth Stanford MD Chest X-Ray 10/04/17 0000 Signed Impressions: Service Date/Time: Wednesday, October 04, 2017 09:26 - CONCLUSION: Underinflation with mild bibasilar opacity consistent with atelectasis. Otherwise, no acute finding is identified. Jorge Robledo MD Objective Remarks AAOx3 The patient is nad, mild respiratory distress There is diffuse bilateral wheezing mostly in expiratory phase on bilateral lung hemphill and wheezing at the level of the larynx - improving (-) use of accessory muscles of respiration Abdomen is soft, non tender, mildly distended with positive bowel sounds. No edema observed on lower extremities Procedures none Medications and IVs Current Medications Medications (Trade) Dose Ordered Sig/Aishwarya Route Start Time Stop Time Status Last Admin (Zofran Inj) 4 mg Q6H PRN IVP 10/02/17 18:30 (Narcan Inj) 0.4 mg UNSCH PRN IV PUSH 10/02/17 18:30 (Milk Of Magnesia Liq) 30 ml Q12H PRN PO 10/02/17 18:30 10/06/17 08:36 (Senokot) 17.2 mg Q12H PRN PO 10/02/17 18:30 (Dulcolax Supp) 10 mg DAILY PRN RECTAL 10/02/17 18:30 (Lactulose Liq) 30 ml DAILY PRN PO 10/02/17 18:30 10/04/17 08:38 (NS Flush) 2 ml BID IV FLUSH 10/02/17 21:00 10/06/17 08:37 (NS Flush) 2 ml UNSCH PRN IV FLUSH 10/02/17 18:30 10/04/17 05:39 (KCl) 20 meq BID PO 10/02/17 21:00 10/06/17 08:36 (Robitussin Dm 200-20 Mg/10 ml Liq) 10 ml Q4H PRN PO 10/02/17 19:30 (Zyloprim) 300 mg DAILY PO 10/03/17 09:00 10/06/17 08:36 (Colchicine) 0.6 mg MoWeFr PO 10/02/17 19:30 10/04/17 21:04 (Proscar) 5 mg DAILY PO 10/02/17 19:30 10/06/17 08:37 (Prinivil) 20 mg DAILY PO 10/02/17 19:30 Future Hold 10/04/17 08:42 (Claritin) 10 mg DAILY PO 10/03/17 09:00 10/06/17 08:36 (Minipress) 5 mg BID PO 10/02/17 21:00 10/06/17 08:36 (Flomax) 0.4 mg HS PO 10/02/17 21:00 10/05/17 21:06 (Ultram) 50 mg TID PO 10/03/17 09:00 10/06/17 08:37 (Coumadin) 2.5 mg SuTuWeThFrSa@1600 PO 10/02/17 19:34 Future Hold 10/03/17 16:00 (Coumadin) 5 mg Mo@1600 PO 10/07/17 16:00 Future Hold (Protonix) 20 mg DAILY PO 10/03/17 09:00 10/06/17 08:36 (Pravachol) 40 mg HS PO 10/02/17 21:00 10/05/17 21:06 (Vasotec Inj) 1.25 mg Q6H PRN IV PUSH 10/02/17 19:30 (Lopressor) 50 mg BID PO 10/04/17 21:00 10/06/17 08:36 Levofloxacin/ Dextrose 150 ml @ 100 mls/hr Q48H IV 10/04/17 11:00 10/04/17 10:52 (SoluMEDROL INJ) 125 mg Q6HR IV PUSH 10/05/17 12:00 10/06/17 06:11 (Duoneb Neb) 1 ampule Q4HR WHILE AWAKE NEB NEB 10/05/17 12:00 10/06/17 07:40 (Duoneb Neb) 1 ampule Q2HR NEB PRN NEB 10/05/17 12:00 A/P Problem List: (1) Acute respiratory failure ICD Code: J96.00 - Acute respiratory failure, unspecified whether with hypoxia or hypercapnia Status: Acute (2) Acute diastolic heart failure ICD Code: I50.31 - Acute diastolic (congestive) heart failure (3) COPD exacerbation ICD Code: J44.1 - Chronic obstructive pulmonary disease with (acute) exacerbation (4) Atrial fibrillation ICD Code: I48.91 - Unspecified atrial fibrillation (5) Acute kidney injury ICD Code: N17.9 - Acute kidney failure, unspecified Status: Acute (6) Essential (primary) hypertension ICD Code: I10 - Essential (primary) hypertension Status: Chronic (7) Elevated troponin ICD Code: R74.8 - Abnormal levels of other serum enzymes Status: Acute (8) CKD (chronic kidney disease), stage III ICD Code: N18.3 - Chronic kidney disease, stage 3 (moderate) Assessment and Plan 1. Acute hypoxemic respiratory failure. 2. COPD exacerbation. 3. Suspected acute diastolic congestive heart failure. Initially patient placed on BiPAP and improved overnight and was weaned off to 2 L nasal cannula. The patient was started on DuoNeb nebulizer treatments, IV Solu-Medrol and patient started on doxycycline. Doxycycline was discontinued and the patient was started on IV Levaquin. The patient became very wheezy and a moderate respiratory distress for which the patient was given 125 minutes of IV Solu-Medrol on 10/04 and the dose of Solu -Medrol was increased back up to 60 mg IV every 6 hours. Patient initially was placed on Lasix, however given creatinine rise then this was held and the patient was placed on IV fluids at a rate of 84 mL's per hour. 2-D echocardiogram was obtained and showed normal left ventricular size, moderate concentric left ventricle hypertrophy, mild MR, mild to moderate TR and moderate pulmonary hypertension (47 mmHg). 1/13 patient currently on moderate to severe respiratory distress with wheezing audible in bilateral lung hemphill however most prominent In the throat at the level of the larynx. I will order a racemic epinephrine nebulizer treatment and afterwards will place on continuous nebulizer treatments. Check chest x- ray stat, will increase the dose of Solu-Medrol 125 every 6 hours. If there is no improvement then will place back on BiPAP and transferred to the intensive care unit. Will consult brick baker. 10/06 Breathing status improving. Off Bipap. Continue same dose of IV Solumedrol for now. Start steroid taper tomorrow. Add incentive spirometry. 4. Chronic atrial fibrillation 5. Elevated troponin 6. Hypertension] 8. Hyperlipidemia history-continue statin. EKG on admission and reviewed by me showed atrial fibrillation with marked right axis deviation at a ventricular rate of 80 bpm, QTC of 405. No ST-T changes suggestive of active ischemiaAtrial fibrillation rate controlled on metoprolol tartrate. Continue. Will trend cardiac enzymes which are likely elevated secondary to demand ischemia. Consult cardiology. Should is on chronic anti-correlation with Coumadin, INR became supratherapeutic on 10/04 so Coumadin was held on this date. PT/INR daily. We'll consult pharmacy to help with dosing. Patient on metoprolol and lisinopril for hypertension. Given elevated creatinine I will hold CANDACE inhibitor and continue beta carlos. 10/06 consult cardiology since troponin trending up. Also frequent PVC's - Keep magnesium >2 and potassium >4. Continue to monitor on telemetry. 7. Deconditioning with generalized weakness due to acute respiratory failure and acute bronchitis -await physical therapy evaluation 9. Chronic kidney disease stage III -stable overnight, monitor on diuretics, avoid nephrotoxins. Baseline creatinine 1.6 to 1.8 as per . 10. RODRIGO on admission patient had elevated creatinine at 1.86 which has slowly been trending up and on 05/09 2.62. Lasix was held and the patient was place on gentle IV fluids. Patient is on severe respiratory distress, DC IV fluids and give 80 mg of IV Lasix once and consult nephrology for further recommendations. 10/06 appreciate nephrology recs. renal us did not show any obstruction. Creatinine improving, continue to monitor BMP. Fu nephrology recommendations. 7. DVT prophylaxis-on Coumadin - held due to supratherapeutic INR. 8. Constipation: Patient is sp Miralax yesterday without success. Milk of magnesia given last night. Will Rx Dulcolax suppository. 9. Hematuria As per RN reported traumatic pichardo insertion. Hematuria seems to be clearing. No clots observed. coumadin held, continue to hold. Discharge Planning Pending clinical improvement - still significant wheezing but respiratory status improving. Pending cardiology consult. Problem Qualifiers (1) Acute respiratory failure: Qualified Codes: J96.01 - Acute respiratory failure with hypoxia Anam Burgess MD Oct 06, 2017 10:48
[2017-10-06] MEDS ORDERED: BISACODYL 10 MG SUPP RECTAL ONE (11:00)
[2017-10-06] MEDS: LEVOFLOXACIN 750 MG PREMIX INJ 150 ML IV SCH (11:12)
[2017-10-06 13:14] LABS: TROPONIN I 0.22 NG/ML (0.02-0.05)
[2017-10-06 13:30] LABS: HEMOGLOBIN A1C 5.8 % (4.3-6.0)
--- NOTE | 2017-10-06 17:33 | MB ---
cc: FITZ BYRNES M.D. DATE OF CONSULTATION: 10/06/2017. REASON FOR CONSULTATION: COPD exacerbation. HISTORY OF PRESENT ILLNESS: Mr. Knapp is an 82-year-old male with known history of COPD of significant degree. He me normally when he is home walking to the bathroom or the kitchen causes significant shortness of breath. He is admitted with exacerbation of COPD with increasing cough, congestion and increasing shortness of breath which has failed outpatient therapy. Chest x-ray reveals mild mid left lung atelectatic change. He denies history of fever or chills. No hemoptysis. PAST MEDICAL HISTORY: His past medical history is that of: 1. COPD. 2. Atrial fibrillation. 3. Congestive heart failure. 4. Hypertension. 5. Previous right knee and left hip surgery. 6. Benign prostate hypertrophy. MEDICATIONS AT HOME: 1. Guaifenesin. 2. Lisinopril. 3. Finasteride. 4. Coumadin for his atrial fibrillation. 5. Simvastatin. 6. Tramadol. 7. Allopurinol. 8. Lasix. 9. Zosyn. 10. Omeprazole. 11. Ventolin. 12. Colace. 13. Claritin. 14. Symbicort. 15. Albuterol PRN. 16. Flonase. ALLERGIES: 1. IODINE. 2. MELOXICAM. 3. INDOCIN. FAMILY HISTORY: Noncontributory. SOCIAL HISTORY: Long heavy smoking history. He has not smoked for several years now. He did smoke cigarettes. He drinks alcohol socially. He does not use drugs. No TB. No industrial exposure. REVIEW OF SYSTEMS: A twelve-point review of systems is as per the history of present illness and past history, otherwise negative. PHYSICAL EXAMINATION: GENERAL: On exam, the patient is alert. VITAL SIGNS: His temperature is 98 degrees Fahrenheit, pulse 80, respirations 20, blood pressure 130/64. HEAD, EYES, EARS, NOSE, THROAT: Unremarkable. Eyes without icterus. NECK: Without adenopathy, thyroid enlargement, central trachea. CHEST: Scattered rhonchi bilaterally. CARDIAC: PMI distant. S1-S2 audible. No murmur, no rub. ABDOMEN: Lax. Bowel sounds audible. EXTREMITIES: No cyanosis, clubbing or edema. LABORATORY DATA: White count 6000, hemoglobin 13, hematocrit 41. Sodium 142, potassium 4.7, BUN 80, creatinine 2.3. Arterial blood gas on October 05, 2017 showed pH 7.36, pCO2 40, pO2 87 on 3 liters oxygen nasal cannula. IMPRESSION: 1. COPD exacerbation, still congested. 2. Congestive heart failure, seems compensated. 3. Atrial fibrillation. PLAN: 1. The patient will be maintained on oxygen therapy as needed. 2. Bronchodilators will be continued. 3. The patient may require continued IV steroid therapy until his symptomatology reverses. 4. Meanwhile a follow-up chest x-ray for the atelectatic change in the left lung will be undertaken and should that persist, would consider bronchoscopic exam. I do thank you for asking me to partake in Mr. Knapp's care. Fitz Byrnes MD [facility] /4:18 PM /5:16 PM
[2017-10-06] MEDS: LACTULOSE SYRUP 20 GM/30 ML CUP PO SCH (18:10)
[2017-10-06] MEDS ORDERED: EPINEPHrine HCL (1:10,000) 1 MG/10 ML SYRINGE ONE (21:02)
--- NOTE | 2017-10-06 22:03 | RADRPT ---
EXAM DATE/TIME: 10/06/2017 21:23 [facility] COMPARISON: CHEST SINGLE AP, October 05, 2017, 11:56. INDICATIONS : Short of breath. RADIATION DOSE: 19.00 CTDIvol (mGy) MEDICAL HISTORY : Cardiovascular disease. Chronic obstructive pulmonary disease. Hypertension. SURGICAL HISTORY : None. ENCOUNTER: Initial ACUITY: 1 day PAIN SCALE: 0/10 LOCATION: Bilateral chest TECHNIQUE: Volumetric scanning of the chest was performed. Using automated exposure control and adjustment of t he mA and/or kV according to patient size, radiation dose was kept as low as reasonably achievable to obtain optimal diagnostic quality images. DICOM format image data is available electronically for r eview and comparison. Follow-up recommendations for detected pulmonary nodules are based at a minimum on nodule size and pa tient risk factors according to Fleischner Society Guidelines. FINDINGS: Minimal patchy infiltrate seen in the left upper lobe. Median lower lung predominant very mild tree i n bud type infiltrates are seen on both sides. There is mild streaky consolidation posteriorly the ri ght lower lobe. No pleural effusion. No pneumothorax. There is mild biatrial enlargement of the heart. A small pericardial effusion is present. There is ri ght and left side coronary artery calcification. Upper abdomen only partly included on the study. Stones are seen in the gallbladder. CONCLUSION: 1. Mild patchy lobar consolidation of the left upper lobe, series 3 image 37. 2. Mild basilar predominant atypical appearing tree in bud type changes of both lungs. 3. Small pericardial effusion, nonspecific age and etiology. 4. Coronary artery calcification. 5. Mild biatrial enlargement. 6. Cholelithiasis partly seen. Jorge Wright MD on October 06, 2017 at 21:58 Board Certified Radiologist. This report was verified electronically.
[2017-10-06] MEDS: PRAVASTATIN SOD 40 MG TAB PO SCH (22:05)
[2017-10-06] MEDS: TAMSULOSIN HCL 0.4 MG CAP PO SCH (22:06)
--- NOTE | 2017-10-06 22:11 | RADRPT ---
EXAM DATE/TIME: 10/06/2017 21:32 [facility] COMPARISON: No previous studies available for comparison. INDICATIONS : Abdominal pain and bloating. MEDICAL HISTORY : Congestive heart failure. Hypercholesterolemia. Hypertension. COPD. Sleep apnea. Dyspnea. Inguina l hernia. Umbilical hernia. Gastroesophageal reflux. Arthritis.BPH. Renal disease. SURGICAL HISTORY : Left total arthroplasty. Right knee replacement. ENCOUNTER: Initial ACUITY: 3 days PAIN SCORE: 4/10 LOCATION: Bilateral abdomen. FINDINGS: A few loops of nonspecific bowel in the midabdomen noted, if small bowel than mildly distended. Other burgess normal caliber stomach and bowel. No evidence of free air. Multiple stones are seen in the gallbladder. There is severe, chronic appearing and destructive appea ring arthropathy of the left hip, could be fused. CONCLUSION: 1. Nonspecific bowel gas pattern. Early or partial small bowel obstruction not excludable. Clinical a nd x-ray surveillance recommended. 2. Cholelithiasis. 3. Severe chronic appearing arthropathy of the left hip. Jorge Wright MD on October 06, 2017 at 22:05 Board Certified Radiologist. This report was verified electronically.
[2017-10-07] VITALS (27 sets, daily range): BP systolic 129–146; BP diastolic 67–92; PULSE 6–112; RESP 21–24; TEMP 97.8–98.8; O2SAT 93–99
[2017-10-07] MEDS: methylPREDNISolone SOD SUCC 125 MG/2 ML VIAL IV PUSH SCH ×3 (06:25→17:28)
[2017-10-07] MEDS: SODIUM CHLORIDE 0.9% FLUSH 10 ML FLUSH IV FLUSH SCH ×2 (07:53→20:35)
[2017-10-07] MEDS: LACTULOSE SYRUP 20 GM/30 ML CUP PO SCH (07:54)
[2017-10-07] MEDS: POTASSIUM CHLORIDE 20 MEQ CONTROLLED RELEASE TAB PO SCH ×2 (07:54→20:37)
[2017-10-07] MEDS: PRAZOSIN HCL 5 MG CAP PO SCH ×2 (07:54→20:36)
[2017-10-07] MEDS: FINASTERIDE 5 MG TAB PO SCH (07:55)
[2017-10-07] MEDS: COLCHICINE 0.6 MG TAB PO SCH (07:55)
[2017-10-07] MEDS: LORATADINE 10 MG TAB PO SCH (07:55)
[2017-10-07] MEDS: PANTOPRAZOLE SOD 20 MG DELAYED RELEASE TAB PO SCH (07:55)
[2017-10-07] MEDS: traMADol HCL 50 MG TAB PO SCH ×3 (07:55→17:28)
[2017-10-07] MEDS: ALLOPURINOL 300 MG TAB PO SCH (07:55)
[2017-10-07] MEDS: METOPROLOL TARTRATE 50 MG TAB PO SCH ×2 (07:56→20:36)
[2017-10-07] MEDS: BISACODYL 10 MG SUPP RECTAL SCH (07:56)
[2017-10-07] MEDS: RESP: ALBUTEROL 2.5 MG/IPRATROPIUM 0.5 MG NEB (SCH) NEB ×4 (08:27→19:52)
--- NOTE | 2017-10-07 09:03 | PD.CONS ---
HPI Consult Requested By Primary Care Physician [facility] History of Present Illness 82-year-old white male with a history of COPD, CHF, chronic atrial fibrillation who presented with worsening shortness of breath over the previous 3 days. He continues to have shortness of breath, productive cough, sore throat, and audible wheezing. He feels like his breathing is unchanged throughout the hospitalization. He denies any chest pain. He has chronic atrial fibrillation on Coumadin that is monitored by the [facility]. He states he has been on Lasix for many years and hasn't had any leg swelling since he was started on that. He states someone told him he had congestive heart failure at some point in the past several years. He denies any palpitations. The patient consulted for elevated troponin and PVCs. Troponins in the indeterminate range. Telemetry shows episodes of nonsustained V. tach up to 6 beats. (Nathaniel Hoffmann) Review of Systems Negative except as stated in the history of present illness (Nathaniel Hoffmann) Past Family Social History Allergies: Coded Allergies: Iodinated Contrast- Oral and IV Dye (Verified Allergy, Severe, 10/02/17) pt's states it caused chronic renal failure meloxicam (Verified Allergy, Intermediate, 10/02/17) indomethacin (Verified Allergy, Unknown, 10/02/17) Past Medical History COPD Nonspecific CHF Atrial fibrillation, chronic Hypertension Past Surgical History Right knee surgery Left hip surgery Reported Medications Reported Meds & Active Scripts Active Reported Guaifenesin 200 Mg Tablet 200 Mg PO TID Lisinopril 20 Mg Tab 20 Mg PO DAILY Finasteride 5 Mg Tab 5 Mg PO DAILY Do not crush. Tamsulosin (Tamsulosin HCl) 0.4 Mg Cap 0.4 Mg PO HS Warfarin 5 Mg Tab 2.5 Mg PO SUTUWETHFRSA Take 1/2 tablet (2.5mg) daily on Saturday,Saturday,Saturday,, Saturday and Saturday Warfarin 5 Mg Tab 5 Mg PO SATURDAY Simvastatin 20 Mg Tab 20 Mg PO HS Tramadol (Tramadol HCl) 50 Mg Tab 50 Mg PO TID Allopurinol 300 Mg Tab 300 Mg PO DAILY Lasix (Furosemide) 20 Mg Tab 20 Mg PO DAILY Metoprolol Tartrate 25 Mg Tab 25 Mg PO BID Prazosin (Prazosin HCl) 5 Mg Cap 5 Mg PO BID Omeprazole 20 Mg Tab 20 Mg PO DAILY Ventolin Hfa 18 GM Inh (Albuterol Sulfate) 90 Mcg/Act Aer 2 Puff INH QID Vitamin D3 (Cholecalciferol) 2,000 Unit Cap 2,000 Units PO DAILY Magnesium Oxide 420 Mg Tab 420 Mg PO BID Colchicine 0.6 Mg Cap 0.6 Mg PO MOWEFR Take 1 capsule (0.6mg) daily on Saturday,Saturday and Saturday Edelstein (Hydrocodone-Acetaminophen) 5 Mg-325 Mg Tab 1 Tab PO Q8HR PRN Colace (Docusate Sodium) 100 Mg Capsule 100 Mg PO BID PRN Claritin (Loratadine) 10 Mg Tablet 10 Mg PO DAILY Flonase Nasal [place] (Fluticasone Nasal [place]) 50 Mcg/Act [place] 2 [place] EACH NARE DAILY Diclofenac Topical 1% Gel 1 Applic TOPICAL BID PRN Symbicort Inh (Budesonide/Formoterol Fumarate) 80-4.5 Mcg/Act Aero 2 Puff INH Q12HR Active Ordered Medications Current Medications Medications (Trade) Dose Ordered Sig/Aishwarya Route Start Time Stop Time Status Last Admin (Zofran Inj) 4 mg Q6H PRN IVP 10/02/17 18:30 (Narcan Inj) 0.4 mg UNSCH PRN IV PUSH 10/02/17 18:30 (Milk Of Magnesia Liq) 30 ml Q12H PRN PO 10/02/17 18:30 10/06/17 08:36 (Senokot) 17.2 mg Q12H PRN PO 10/02/17 18:30 (Dulcolax Supp) 10 mg DAILY PRN RECTAL 10/02/17 18:30 (Lactulose Liq) 30 ml DAILY PRN PO 10/02/17 18:30 10/04/17 08:38 (NS Flush) 2 ml BID IV FLUSH 10/02/17 21:00 10/07/17 07:53 (NS Flush) 2 ml UNSCH PRN IV FLUSH 10/02/17 18:30 10/04/17 05:39 (KCl) 20 meq BID PO 10/02/17 21:00 10/07/17 07:54 (Robitussin Dm 200-20 Mg/10 ml Liq) 10 ml Q4H PRN PO 10/02/17 19:30 (Zyloprim) 300 mg DAILY PO 10/03/17 09:00 10/07/17 07:55 (Colchicine) 0.6 mg MoWeFr PO 10/02/17 19:30 10/07/17 07:55 (Proscar) 5 mg DAILY PO 10/02/17 19:30 10/07/17 07:55 (Prinivil) 20 mg DAILY PO 10/02/17 19:30 Future Hold 10/04/17 08:42 (Claritin) 10 mg DAILY PO 10/03/17 09:00 10/07/17 07:55 (Minipress) 5 mg BID PO 10/02/17 21:00 10/07/17 07:54 (Flomax) 0.4 mg HS PO 10/02/17 21:00 10/06/17 22:06 (Ultram) 50 mg TID PO 10/03/17 09:00 10/07/17 07:55 (Coumadin) 2.5 mg SuTuWeThFrSa@1600 PO 10/02/17 19:34 Future Hold 10/03/17 16:00 (Coumadin) 5 mg Mo@1600 PO 10/07/17 16:00 Future Hold (Protonix) 20 mg DAILY PO 10/03/17 09:00 10/07/17 07:55 (Pravachol) 40 mg HS PO 10/02/17 21:00 10/06/17 22:05 (Vasotec Inj) 1.25 mg Q6H PRN IV PUSH 10/02/17 19:30 (Lopressor) 50 mg BID PO 10/04/17 21:00 10/07/17 07:56 Levofloxacin/ Dextrose 150 ml @ 100 mls/hr Q48H IV 10/04/17 11:00 10/06/17 11:12 (SoluMEDROL INJ) 125 mg Q6HR IV PUSH 10/05/17 12:00 10/07/17 06:25 (Duoneb Neb) 1 ampule Q4HR WHILE AWAKE NEB NEB 10/05/17 12:00 10/07/17 08:27 (Duoneb Neb) 1 ampule Q2HR NEB PRN NEB 10/05/17 12:00 (Dulcolax Supp) 10 mg DAILY RECTAL 10/07/17 09:00 (Lactulose Liq) 30 ml DAILY PO 10/06/17 18:00 10/07/17 07:54 Family History Father had a stroke and hypertension Social History Occasional alcohol use, does not smoke cigarettes (Nathaniel Hoffmann) Physical Exam Vital Signs Vital Signs Date Time Temp Pulse Resp B/P (MAP) Pulse Ox O2 Delivery O2 Flow Rate FiO2 10/07/17 08:27 96 Nasal Cannula 3.00 10/07/17 08:00 82 10/07/17 07:10 83 10/07/17 07:10 98.6 68 24 131/69 (89) 97 10/07/17 07:10 97 Nasal Cannula 3.00 10/07/17 06:09 80 10/07/17 05:06 80 10/07/17 04:48 104 10/07/17 03:21 88 10/07/17 03:20 97.8 101 22 143/68 (93) 93 10/07/17 02:25 78 10/07/17 01:14 78 10/07/17 00:20 91 10/06/17 23:02 97.5 97 23 125/75 (92) 95 10/06/17 23:02 103 10/06/17 22:21 98 10/06/17 21:10 100 10/06/17 20:15 102 10/06/17 19:46 97.3 99 24 125/74 (91) 96 10/06/17 19:46 103 10/06/17 19:46 96 Nasal Cannula 3.00 10/06/17 19:31 92 Nasal Cannula 3.00 10/06/17 18:00 90 10/06/17 17:00 90 10/06/17 16:00 86 10/06/17 15:00 98.0 81 22 133/64 (87) 96 10/06/17 15:00 81 10/06/17 14:00 82 10/06/17 13:00 82 10/06/17 12:00 69 10/06/17 11:00 98.6 82 23 111/68 (82) 93 10/06/17 11:00 74 10/06/17 10:00 86 Physical Exam GENERAL: Well-developed well-nourished. In no acute distress. Audibly wheezing. NECK: No carotid bruits. No JVD. CARDIOVASCULAR: Regular rate and rhythm. No murmur appreciated. RESPIRATORY: No accessory muscle use. Diffuse wheezing all lung hemphill. MUSCULOSKELETAL: No clubbing or cyanosis. No edema. NEUROLOGICAL: Awake and alert. Normal speech. Laboratory Laboratory Tests Test 10/06/17 12:07 10/07/17 03:28 Hemoglobin A1c 5.8 Troponin I 0.22 Prothrombin Time 30.0 Prothromb Time International Ratio 3.0 Date/Time Source Procedure Growth Status 10/02/17 15:55 Nasal Aspirate Influenza Types A,B Antigen ([facility]) - Final NEGATIVE FOR FLU A AND B ANTIGEN.... Complete (Nathaniel Hoffmann) Result Diagram: 10/05/17 1613 10/06/17 0407 Imaging Last Impressions Chest CT 10/06/17 0000 Signed Impressions: Service Date/Time: Friday, October 06, 2017 21:23 - CONCLUSION: 1. Mild patchy lobar consolidation of the left upper lobe, series 3 image 37. 2. Mild basilar predominant atypical appearing tree in bud type changes of both lungs. 3. Small pericardial effusion, nonspecific age and etiology. 4. Coronary artery calcification. 5. Mild biatrial enlargement. 6. Cholelithiasis partly seen. Jorge Wright MD Abdomen X-Ray 10/06/17 0000 Signed Impressions: Service Date/Time: Friday, October 06, 2017 21:32 - CONCLUSION: 1. Nonspecific bowel gas pattern. Early or partial small bowel obstruction not excludable. Clinical and x-ray surveillance recommended. 2. Cholelithiasis. 3. Severe chronic appearing arthropathy of the left hip. Jorge Wright MD Renal Ultrasound 10/05/17 0000 Signed Impressions: Service Date/Time: Thursday, October 05, 2017 20:26 - CONCLUSION: 1. Chronic parenchymal disease. 2. No obstruction or acute abnormality demonstrated. 3. Large, benign appearing cyst of the left upper pole. Jorge Wright MD Chest X-Ray 10/05/17 0000 Signed Impressions: Service Date/Time: Thursday, October 05, 2017 11:56 - CONCLUSION: Mild left midlung atelectasis. No other acute cardiopulmonary disease identified. Siddharth Stanford MD (Nathaniel Hoffmann) Assessment and Plan Assessment and Plan 82-year-old white male with a history of COPD, CHF, chronic atrial fibrillation who presented with worsening shortness of breath over the previous 3 days. He continues to have shortness of breath, productive cough, sore throat, and audible wheezing. He feels like his breathing is unchanged throughout the hospitalization. He denies any chest pain. He has chronic atrial fibrillation [facility] He states he has been on Lasix for many years and hasn't had any leg swelling since he was started on that. He states someone told him he had congestive heart failure at some point in the past several years. He denies any palpitations. The patient consulted for elevated troponin and PVCs. Troponins in the indeterminate range. Telemetry shows episodes of nonsustained V. tach up to 6 beats. History of CHF: Does not appear to be in exacerbation at this time. Not currently on diuretics at this time, nephrology on board. Lisinopril on hold with RODRIGO. NSVT: Asymptomatic. Continue metoprolol. Chronic atrial fibrillation: Rate controlled on metoprolol. Therapeutic on warfarin. Troponin elevation: Indeterminate range. Possibly secondary to respiratory distress and renal insufficiency as below. COPD exacerbation/pneumonia: Pulmonology on board. RODRIGO on CKD: Nephrology on board. (Nathaniel Hoffmann) Assessment and Plan intermediate troponin elevation. echo - normal ejection fraction chronic afib NSVT unable to tolerate BB due to COPD plan for lexiscan tomorrow suspect troponin elevation is demand mediate high threshold for LHC given CRI (Misael Espinoza MD) Nathaniel Hoffmann Oct 07, 2017 09:03 Misael Espinoza MD Oct 07, 2017 12:22
--- NOTE | 2017-10-07 10:52 | HHI.NPPN ---
Subjective Renal Failure: Acute Interval History Sitting up in a chair. Audible wheezing. AM labs are in progress. Still with hematuria. (Gaby Flannery) Review of Systems General Constitutional: Fatigue (Gaby Flannery) Respiratory Lungs: SOB, Cough (Gaby Flannery) Objective Data Data Vital Signs Date Time Temp Pulse Resp B/P (MAP) Pulse Ox O2 Delivery O2 Flow Rate FiO2 10/07/17 10:00 6 10/07/17 09:00 82 10/07/17 08:27 96 Nasal Cannula 3.00 10/07/17 08:00 82 10/07/17 07:10 83 10/07/17 07:10 98.6 68 24 131/69 (89) 97 10/07/17 07:10 97 Nasal Cannula 3.00 10/07/17 06:09 80 10/07/17 05:06 80 10/07/17 04:48 104 10/07/17 03:21 88 10/07/17 03:20 97.8 101 22 143/68 (93) 93 10/07/17 02:25 78 10/07/17 01:14 78 10/07/17 00:20 91 10/06/17 23:02 97.5 97 23 125/75 (92) 95 10/06/17 23:02 103 10/06/17 22:21 98 10/06/17 21:10 100 10/06/17 20:15 102 10/06/17 19:46 97.3 99 24 125/74 (91) 96 10/06/17 19:46 103 10/06/17 19:46 96 Nasal Cannula 3.00 10/06/17 19:31 92 Nasal Cannula 3.00 10/06/17 18:00 90 10/06/17 17:00 90 10/06/17 16:00 86 10/06/17 15:00 98.0 81 22 133/64 (87) 96 10/06/17 15:00 81 10/06/17 14:00 82 10/06/17 13:00 82 10/06/17 12:00 69 10/06/17 11:00 98.6 82 23 111/68 (82) 93 10/06/17 11:00 74 (Gaby Flannery) -: 10/05/17 1613 10/06/17 0407 Imaging Last [address] 10/06/17 0000 Signed Impressions: Service Date/Time: Friday, October 06, 2017 21:23 - CONCLUSION: 1. Mild patchy lobar consolidation of the left upper lobe, series 3 image 37. 2. Mild basilar predominant atypical appearing tree in bud type changes of both lungs. 3. Small pericardial effusion, nonspecific age and etiology. 4. Coronary artery calcification. 5. Mild biatrial enlargement. 6. Cholelithiasis partly seen. Jorge Wright MD Abdomen X-Ray 10/06/17 0000 Signed Impressions: Service Date/Time: Friday, October 06, 2017 21:32 - CONCLUSION: 1. Nonspecific bowel gas pattern. Early or partial small bowel obstruction not excludable. Clinical and x-ray surveillance recommended. 2. Cholelithiasis. 3. Severe chronic appearing arthropathy of the left hip. Jorge Wright MD Renal Ultrasound 10/05/17 0000 Signed Impressions: Service Date/Time: Thursday, October 05, 2017 20:26 - CONCLUSION: 1. Chronic parenchymal disease. 2. No obstruction or acute abnormality demonstrated. 3. Large, benign appearing cyst of the left upper pole. Jorge Wright MD Chest X-Ray 10/05/17 0000 Signed Impressions: Service Date/Time: Thursday, October 05, 2017 11:56 - CONCLUSION: Mild left midlung atelectasis. No other acute cardiopulmonary disease identified. Siddharth Stanford MD (Gaby Flannery) Physical Exam General Appearance: Well Developed, Comfortable (Gaby Flannery) Eyes Eye Exam: Pupils Equal (Gaby Flannery) Neck Neck Exam: Neck Supple (Gaby Flannery) Pulmonary Resp Exam: Breath Sounds Equal, Rhonchi, Labored Resp Remarks Exp wheezing audible, throughout (Gaby Flannery) Cardiology CV Exam: Irregular (Gaby Flannery) Gastrointestinal/Abdomen GI Exam: Soft, Non-Tender, Bowel Sounds Present (Gaby Flannery) Musculoskeletal MS Exam: Joints Intact, Normal Tone (Gaby Flannery) Integumentary Skin Exam: Warm, Dry, Intact (Gaby Flannery) Extremeties Extremities Exam: No Edema, Pedal Pulses Palpable (Gaby Flannery) Neurologic Neuro Exam: Alert, Awake, Oriented, Speech Clear, Moving All Extremities (Gaby Flannery) Psychiatric Psych Exam: Appropriate Responses (Gaby Flannery) Assessment/Plan Discussed Condition With: Patient Assessment Summary: RODRIGO/Acute Renal Failure, Hypertension Problem List: (1) Acute kidney injury ICD Codes: N17.9 - Acute kidney failure, unspecified Status: Acute Plan: Todays labs are in process. Baseline creatinine 1.6. RODRIGO thought to be due to urinary retention. Gandhi in place. Slight hematuria persists. He is on Flomax and finasteride. Monitor urine output. Await lab results. Avoid nephrotoxic agents. (2) COPD exacerbation ICD Codes: J44.1 - Chronic obstructive pulmonary disease with (acute) exacerbation Plan: Pulmonary following, CT reviewed. He is on bronchodilators, continuous oxygen, and steroids. (3) Congestive heart failure ICD Codes: I50.9 - Heart failure, unspecified Status: Acute Plan: may have diastolic dysfunction. No evidence of systolic heart failure (4) Atrial fibrillation ICD Codes: I48.91 - Unspecified atrial fibrillation Plan: Rate is controlled. INR 3. Anticoagulation to resume tonight. (5) Essential (primary) hypertension ICD Codes: I10 - Essential (primary) hypertension Status: Chronic Plan: He is on metoprolol and Minipress. CANDACE inhibitor held. (Gaby Flannery) Plan patient was seen and examined. Renal function has improved. Agree with above assessment and plan. (Semaj Garza MD) Problem Qualifiers (1) Congestive heart failure: Qualified Codes: I50.9 - Heart failure, unspecified Gaby Flannery Oct 07, 2017 10:52 Semaj Garza MD Oct 08, 2017 09:27
[2017-10-07 13:32] LABS: HEMATOCRIT 42.3 % (39.0-51.0); HEMOGLOBIN 13.7 GM/DL (13.0-17.0); MEAN CELL VOLUME 92.2 FL (80.0-100.0); MEAN CORPUSCULAR HGB CONC 32.5 % (32.0-36.0); MEAN PLATELET VOLUME 10.3 FL (7.0-11.0); PLATELET COUNT 87 TH/MM3 (150-450); RED BLOOD COUNT 4.59 MIL/MM3 (4.50-5.90); RED CELL DISTRIBUTION WIDTH 17.2 % (11.6-17.2); WHITE BLOOD COUNT 7.7 TH/MM3 (4.0-11.0)
[2017-10-07 14:00] LABS: ALBUMIN 3.1 GM/DL (3.4-5.0); BICARBONATE 25.5 MEQ/L (21.0-32.0); CALCIUM 9.1 MG/DL (8.5-10.1); CREATININE 1.89 MG/DL (0.60-1.30); PHOSPHORUS 2.6 MG/DL (2.5-4.9)
--- NOTE | 2017-10-07 15:04 | PD.CONS ---
HPI History of Present Illness This is a 82 year old M with medical history significant for COPD, CHF, chronic a-fib on anticoagulation with Warfarin, who came to the hospital with complaints of worsening SOB. Pt has been evaluated by pulmonology and cardiology who plans to do a Lexiscan stress test if patients respiratory status improves tomorrow. GI has been consulted for abdominal distension and constipation. Since consult was placed pt reports having 3 soft BMs after receiving Lactulose, one yesterday and two today. Denies watery stool and states that it was firm, but soft. Denies BRBPR and melena. Pt denies any abdominal pain, nausea, vomiting, acid reflux, unintentional weight loss. KUB ( 10/06) --> Nonspecific bowel gas pattern. Early or partial small bowel obstruction not excludable. Clinical and x-ray surveillance recommended. Cholelithiasis. Severe chronic appearing arthropathy of the left hip. Clinically pt not exhibiting signs of bowel obstructions. Pr reports tolerating diet with BMs since yesterday. Abdomen does appear distended, however, pt denies any distension. 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 Does not think he has ever had an EGD. Reports last colonoscopy was close to ten years ago and he is unsure of the results but thinks it was a normal exam. Admits to occasional ETOH. Denies smoking. Denies abdominal surgeries in the past. Of note, does have an umbilical and inguinal hernia. (Pilar Cordoba) PFSH Past Medical History COPD Nonspecific CHF Atrial fibrillation, chronic Hypertension Umbilical hernia Inguinal hernia Past Surgical History Right knee surgery Left hip surgery (Pilar Cordoba) Coded Allergies: Iodinated Contrast- Oral and IV Dye (Verified Allergy, Severe, 10/02/17) pt's states it caused chronic renal failure meloxicam (Verified Allergy, Intermediate, 10/02/17) indomethacin (Verified Allergy, Unknown, 10/02/17) Family History Father had a stroke and hypertension Social History Occasional user [employer] does not smoke cigarettes (Pilar Cordoba) Review of Systems Gastrointestinal: DENIES: Abdominal pain, Black stools, Bloody stools, Constipation, Diarrhea, Nausea, Vomiting, Difficulty Swallowing, Swelling of Abdomen, Heartburn, Hematemesis (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,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) GI Exam Vitals I&O Vital Signs Date Time Temp Pulse Resp B/P (MAP) Pulse Ox O2 Delivery O2 Flow Rate FiO2 10/07/17 14:00 96 10/07/17 13:00 75 10/07/17 12:00 78 10/07/17 11:00 98.8 78 24 134/67 (89) 97 10/07/17 11:00 80 10/07/17 10:00 76 10/07/17 09:00 82 10/07/17 08:27 96 Nasal Cannula 3.00 10/07/17 08:00 82 10/07/17 07:10 83 10/07/17 07:10 98.6 68 24 131/69 (89) 97 10/07/17 07:10 97 Nasal Cannula 3.00 10/07/17 06:09 80 10/07/17 05:06 80 10/07/17 04:48 104 10/07/17 03:21 88 10/07/17 03:20 97.8 101 22 143/68 (93) 93 10/07/17 02:25 78 10/07/17 01:14 78 10/07/17 00:20 91 10/06/17 23:02 97.5 97 23 125/75 (92) 95 10/06/17 23:02 103 10/06/17 22:21 98 10/06/17 21:10 100 10/06/17 20:15 102 10/06/17 19:46 97.3 99 24 125/74 (91) 96 10/06/17 19:46 103 10/06/17 19:46 96 Nasal Cannula 3.00 10/06/17 19:31 92 Nasal Cannula 3.00 10/06/17 18:00 90 10/06/17 17:00 90 10/06/17 16:00 86 10/06/17 15:00 98.0 81 22 133/64 (87) 96 10/06/17 15:00 81 I/O 10/06/17 10/06/17 10/06/17 10/07/17 10/07/17 10/07/17 07:00 15:00 23:00 07:00 15:00 23:00 Intake Total 700 ml 720 ml 480 ml Output Total 1300 ml 750 ml 550 ml Balance -600 ml -30 ml -70 ml Intake Oral 700 ml 720 ml 480 ml Output Urine Total 1300 ml 750 ml 550 ml # Bowel Movements 0 2 Imaging Last Impressions Chest CT 10/06/17 0000 Signed Impressions: Service Date/Time: Friday, October 06, 2017 21:23 - CONCLUSION: 1. Mild patchy lobar consolidation of the left upper lobe, series 3 image 37. 2. Mild basilar predominant atypical appearing tree in bud type changes of both lungs. 3. Small pericardial effusion, nonspecific age and etiology. 4. Coronary artery calcification. 5. Mild biatrial enlargement. 6. Cholelithiasis partly seen. Jorge Wright MD Abdomen X-Ray 10/06/17 0000 Signed Impressions: Service Date/Time: Friday, October 06, 2017 21:32 - CONCLUSION: 1. Nonspecific bowel gas pattern. Early or partial small bowel obstruction not excludable. Clinical and x-ray surveillance recommended. 2. Cholelithiasis. 3. Severe chronic appearing arthropathy of the left hip. Jorge Wright MD Renal Ultrasound 10/05/17 0000 Signed Impressions: Service Date/Time: Thursday, October 05, 2017 20:26 - CONCLUSION: 1. Chronic parenchymal disease. 2. No obstruction or acute abnormality demonstrated. 3. Large, benign appearing cyst of the left upper pole. Jorge Wright MD Chest X-Ray 10/05/17 0000 Signed Impressions: Service Date/Time: Thursday, October 05, 2017 11:56 - CONCLUSION: Mild left midlung atelectasis. No other acute cardiopulmonary disease identified. Siddharth Stanford MD Laboratory Test 10/07/17 03:28 10/07/17 12:23 Prothrombin Time 30.0 SEC Prothromb Time International Ratio 3.0 RATIO White Blood Count 7.7 TH/MM3 Red Blood Count 4.59 MIL/MM3 Hemoglobin 13.7 GM/DL Hematocrit 42.3 % Mean Corpuscular Volume 92.2 FL Mean Corpuscular Hemoglobin 30.0 PG Mean Corpuscular Hemoglobin Concent 32.5 % Red Cell Distribution Width 17.2 % Platelet Count 87 TH/MM3 Mean Platelet Volume 10.3 FL Blood Urea Nitrogen 74 MG/DL Creatinine 1.89 MG/DL Random Glucose 146 MG/DL Albumin 3.1 GM/DL Calcium Level 9.1 MG/DL Phosphorus Level 2.6 MG/DL Sodium Level 138 MEQ/L Potassium Level 5.4 MEQ/L Chloride Level 103 MEQ/L Carbon Dioxide Level 25.5 MEQ/L Anion Gap 10 MEQ/L Estimat Glomerular Filtration Rate 34 ML/MIN Date/Time Source Procedure Growth Status 10/02/17 15:55 Nasal Aspirate Influenza Types A,B Antigen (CHANDLER) - Final NEGATIVE FOR FLU A AND B ANTIGEN.... Complete Physical Examination HEENT: Normocephalic; atraumatic CHEST: Tachypnea, diaphragmatic breathing, 3 L O2 NC, diffuse wheezing CARDIAC: Irregular ABDOMEN: Distended, soft, nontender, bowel sounds active EXTREMITIES: BLE edema SKIN: Normal; no rash; no jaundice. HOME THERAPY TEACHER: No focal deficits; alert and oriented times three. (iPlar Cordoba) Assessment and Plan Plan Assessment: - Abdominal distension/constipation- Pt reports constipation for three or four days but after receiving Lactulose yesterday, reports having 3 BMs. One yesterday and two today, states all have been loose but formed. Pt denies nausea, vomiting, abdominal pain, BRBPR, melena. KUB (10/06) --> Nonspecific bowel gas pattern. Early or partial small bowel obstruction not excludable. Clinical and x-ray surveillance recommended. Cholelithiasis. Severe chronic appearing arthropathy of the left hip. Clinically no significance for SBO, pt tolerating PO, denies nausea and vomiting and is having formed BMs. Will repeat KUB in AM, pt has now had 3 BMs since exam last done. Hold off on NGT, not currently indicated given pt has no symptoms at this time. - Cardiology following and planning for Lexiscan stress test tomorrow if pts respiratory status is stable - SOB- pulmonology following Pt currently on 3 L NC Plan: - Repeat KUB in AM - If still concern for SBO then may consider SBFT if pt can tolerate - No indication for NGT unless intractable vomiting - Continue bowel regimen - Monitor stool count - Supportive care - Further recommendations to follow based on results of above Pt has been seen and examined by myself and Dr. Hinson and this note is written on his behalf. (Pilar Cordoba) Physician Comments Patient seen and examined Agree with above Continue with current supportive care Monitor labs (Misael Hinson MD) Pilar Cordoba Oct 07, 2017 15:04 Misael Hinson MD Oct 08, 2017 01:36
[2017-10-07] MEDS ORDERED: WARFARIN SOD 5 MG TAB PO SCH (16:00)
[2017-10-07] MEDS ORDERED: FUROSEMIDE 20 MG/2 ML VIAL IV PUSH ONE (18:00)
--- NOTE | 2017-10-07 18:12 | HHI.PR ---
Subjective Remarks ALERT STILL CONGESTED ALITTLE BETTER Objective GENERAL: SKIN: Warm and dry. HEAD: Atraumatic. Normocephalic. EYES: Pupils equal and round. No scleral icterus. No injection or drainage. ENT: No nasal bleeding or discharge. Mucous membranes pink and moist. NECK: Trachea midline. No JVD. CARDIOVASCULAR: Regular rate and rhythm. RESPIRATORY: No accessory muscle use. Clear to auscultation. Breath sounds equal bilaterally. GASTROINTESTINAL: Abdomen soft, non-tender, nondistended. Hepatic and splenic margins not palpable. MUSCULOSKELETAL: Extremities without clubbing, cyanosis, or edema. No obvious deformities. NEUROLOGICAL: Awake and alert. No obvious cranial nerve deficits. Motor grossly within normal limits. Five out of 5 muscle strength in the arms and legs. Normal speech. PSYCHIATRIC: Appropriate mood and affect; insight and judgment normal. Vital Signs Date Time Temp Pulse Resp B/P (MAP) Pulse Ox O2 Delivery O2 Flow Rate FiO2 10/07/17 18:00 98 10/07/17 17:00 85 10/07/17 16:00 84 10/07/17 15:00 98.0 112 24 131/92 (105) 99 10/07/17 15:00 105 10/07/17 14:00 96 10/07/17 13:00 75 10/07/17 12:00 78 10/07/17 11:00 98.8 78 24 134/67 (89) 97 10/07/17 11:00 80 10/07/17 10:00 76 10/07/17 09:00 82 10/07/17 08:27 96 Nasal Cannula 3.00 10/07/17 08:00 82 10/07/17 07:10 83 10/07/17 07:10 98.6 68 24 131/69 (89) 97 10/07/17 07:10 97 Nasal Cannula 3.00 10/07/17 06:09 80 10/07/17 05:06 80 10/07/17 04:48 104 10/07/17 03:21 88 10/07/17 03:20 97.8 101 22 143/68 (93) 93 10/07/17 02:25 78 10/07/17 01:14 78 10/07/17 00:20 91 10/06/17 23:02 97.5 97 23 125/75 (92) 95 10/06/17 23:02 103 10/06/17 22:21 98 10/06/17 21:10 100 10/06/17 20:15 102 10/06/17 19:46 97.3 99 24 125/74 (91) 96 10/06/17 19:46 103 10/06/17 19:46 96 Nasal Cannula 3.00 10/06/17 19:31 92 Nasal Cannula 3.00 I/O 10/06/17 10/06/17 10/06/17 10/07/17 10/07/17 10/07/17 07:00 15:00 23:00 07:00 15:00 23:00 Intake Total 700 ml 720 ml 480 ml 720 ml Output Total 1300 ml 750 ml 550 ml 900 ml Balance -600 ml -30 ml -70 ml -180 ml Intake Oral 700 ml 720 ml 480 ml 720 ml Output Urine Total 1300 ml 750 ml 550 ml 900 ml # Bowel Movements 0 2 2 Result Diagram: 10/07/17 1223 10/07/17 1223 Objective Remarks GENERAL: SKIN: Warm and dry. HEAD: Atraumatic. Normocephalic. EYES: Pupils equal and round. No scleral icterus. No injection or drainage. ENT: No nasal bleeding or discharge. Mucous membranes pink and moist. NECK: Trachea midline. No JVD. CARDIOVASCULAR: Regular rate and rhythm. RESPIRATORY: No accessory muscle use. , SCATTERED RHONCHI Clear to auscultation. Breath sounds equal bilaterally. GASTROINTESTINAL: Abdomen soft, non-tender, nondistended. Hepatic and splenic margins not palpable. MUSCULOSKELETAL: Extremities without clubbing, cyanosis, or edema. No obvious deformities. NEUROLOGICAL: Awake and alert. No obvious cranial nerve deficits. Motor grossly within normal limits. Five out of 5 muscle strength in the arms and legs. Normal speech. PSYCHIATRIC: Appropriate mood and affect; insight and judgment normal. Assessment and Plan Assessment and Plan COPD EXACERBATION CHF PLAN O2 BRONCHODILATORS LASIX GIVEN NOW X 1 STEROIDS ANTIBX WILL FOLLOW Fitz Byrnes MD Oct 07, 2017 18:12
[2017-10-07] MEDS: PRAVASTATIN SOD 40 MG TAB PO SCH (20:35)
[2017-10-07] MEDS: TAMSULOSIN HCL 0.4 MG CAP PO SCH (20:36)
[2017-10-08] VITALS (29 sets, daily range): BP systolic 125–148; BP diastolic 65–80; PULSE 68–93; RESP 20–24; TEMP 79.6–98.6; O2SAT 95–98
[2017-10-08] MEDS: methylPREDNISolone SOD SUCC 125 MG/2 ML VIAL IV PUSH SCH ×5 (00:41→23:17)
[2017-10-08 05:10] LABS: HEMATOCRIT 39.7 % (39.0-51.0); HEMOGLOBIN 13.1 GM/DL (13.0-17.0); LYMPH % 3.4 % (9.0-44.0); LYMPHOCYTE # 0.2 TH/MM3 (1.0-4.8); MEAN CELL VOLUME 91.6 FL (80.0-100.0); MEAN CORPUSCULAR HEMOGLOBIN 30.1 PG (27.0-34.0); MEAN CORPUSCULAR HGB CONC 32.9 % (32.0-36.0); MEAN PLATELET VOLUME 10.2 FL (7.0-11.0); MONO % 3.9 % (0.0-8.0); MONOCYTE # 0.2 TH/MM3 (0-0.9); NEUT % 92.7 % (16.0-70.0); PLATELET COUNT 74 TH/MM3 (150-450); RED BLOOD COUNT 4.34 MIL/MM3 (4.50-5.90); RED CELL DISTRIBUTION WIDTH 16.8 % (11.6-17.2); WHITE BLOOD COUNT 6.5 TH/MM3 (4.0-11.0)
[2017-10-08 05:18] LABS: INTERNATIONAL NORMALIZED RATIO 2.7 RATIO
[2017-10-08 05:34] LABS: ALBUMIN 2.8 GM/DL (3.4-5.0); ALT (GPT) 93 U/L (12-78); AST (GOT) 62 U/L (15-37); BICARBONATE 29.2 MEQ/L (21.0-32.0); BLOOD UREA NITROGEN 72 MG/DL (7-18); CALCIUM 8.8 MG/DL (8.5-10.1); CHLORIDE 103 MEQ/L (98-107); CREATININE 1.98 MG/DL (0.60-1.30); GLOMERULAR FILTRATION RATE 33 ML/MIN (>89); GLUCOSE,RANDOM 158 MG/DL (74-106); SODIUM (NA) 138 MEQ/L (136-145)
[2017-10-08 05:36] LABS: ALKALINE PHOSPHATASE 105 U/L (45-117); TOTAL BILIRUBIN ADULT 0.7 MG/DL (0.2-1.0); TOTAL PROTEIN 5.6 GM/DL (6.4-8.2)
--- NOTE | 2017-10-08 06:49 | RADRPT ---
EXAM DATE/TIME: 10/08/2017 06:31 [place] COMPARISON: ABDOMEN KUB ONLY, October 06, 2017, 21:32. INDICATIONS : Small bowel obstrcution, abdominal pain. MEDICAL HISTORY : Congestive heart failure. Hypercholesterolemia. Hypertension. COPD. Sleepapnea. Dyspnea. Inguinal her lam. Umbilical hernia. Gastroesophageal reflux. SURGICAL HISTORY : Left total arthroplasty. Right knee replacement. ENCOUNTER: Subsequent ACUITY: 4 - 6 days PAIN SCORE: 3/10 LOCATION: Bilateral abdomen FINDINGS: Supine view of the abdomen was performed. The bowel does not appear dilated. There is some stool in the colon. There are calcifications in the upper quadrant presumably related to gallstones. There is severe degenerative change at the left hip joint with chronic remodeling of the femoral head and neck region. CONCLUSION: 1. Resolution of the previously seen dilated bowel. 2. Gallstones 3. Severe chronic change at the left hip. Jorge Paz MD on October 08, 2017 at 6:44 Board Certified Radiologist. This report was verified electronically.
--- NOTE | 2017-10-08 06:52 | HHI.PR ---
Subjective Remarks Deferred entry - patient seen on 10/07/17 at 7:30 pm Patient states that breathing is better. Deneis fevers or chills denies cp Objective Vitals Vital Signs Date Time Temp Pulse Resp B/P (MAP) Pulse Ox O2 Delivery O2 Flow Rate FiO2 10/08/17 05:08 77 10/08/17 04:34 93 10/08/17 03:00 98.1 75 21 148/79 (102) 98 10/08/17 03:00 79 10/08/17 02:10 77 10/08/17 01:08 69 10/08/17 00:10 85 10/07/17 23:15 97.8 81 22 146/87 (106) 96 10/07/17 23:15 80 10/07/17 22:03 90 10/07/17 21:01 90 10/07/17 20:52 96 10/07/17 19:52 97 Nasal Cannula 3.00 10/07/17 19:25 90 10/07/17 19:25 98.4 96 21 129/68 (88) 98 10/07/17 19:25 98 Nasal Cannula 3.00 10/07/17 18:00 98 10/07/17 17:00 85 10/07/17 16:00 84 10/07/17 15:00 98.0 112 24 131/92 (105) 99 10/07/17 15:00 105 10/07/17 14:00 96 10/07/17 13:00 75 10/07/17 12:00 78 10/07/17 11:00 98.8 78 24 134/67 (89) 97 10/07/17 11:00 80 10/07/17 10:00 76 10/07/17 09:00 82 10/07/17 08:27 96 Nasal Cannula 3.00 10/07/17 08:00 82 10/07/17 07:10 83 10/07/17 07:10 98.6 68 24 131/69 (89) 97 10/07/17 07:10 97 Nasal Cannula 3.00 I/O 10/07/17 10/07/17 10/07/17 10/08/17 10/08/17 10/08/17 07:00 15:00 23:00 07:00 15:00 23:00 Intake Total 480 ml 720 ml 240 ml Output Total 550 ml 900 ml 1600 ml Balance -70 ml -180 ml -1360 ml Intake Oral 480 ml 720 ml 240 ml Output Urine Total 550 ml 900 ml 1600 ml # Bowel Movements 2 2 0 Result Diagram: 10/08/175 10/08/17 0315 Imaging Last Impressions Chest CT 10/06/17 0000 Signed Impressions: Service Date/Time: Friday, October 06, 2017 21:23 - CONCLUSION: 1. Mild patchy lobar consolidation of the left upper lobe, series 3 image 37. 2. Mild basilar predominant atypical appearing tree in bud type changes of both lungs. 3. Small pericardial effusion, nonspecific age and etiology. 4. Coronary artery calcification. 5. Mild biatrial enlargement. 6. Cholelithiasis partly seen. Jorge Wright MD Abdomen X-Ray 10/06/17 0000 Signed Impressions: Service Date/Time: Friday, October 06, 2017 21:32 - CONCLUSION: 1. Nonspecific bowel gas pattern. Early or partial small bowel obstruction not excludable. Clinical and x-ray surveillance recommended. 2. Cholelithiasis. 3. Severe chronic appearing arthropathy of the left hip. Jorge Wright MD Renal Ultrasound 10/05/17 0000 Signed Impressions: Service Date/Time: Thursday, October 05, 2017 20:26 - CONCLUSION: 1. Chronic parenchymal disease. 2. No obstruction or acute abnormality demonstrated. 3. Large, benign appearing cyst of the left upper pole. Jorge Wright MD Chest X-Ray 10/05/17 0000 Signed Impressions: Service Date/Time: Thursday, October 05, 2017 11:56 - CONCLUSION: Mild left midlung atelectasis. No other acute cardiopulmonary disease identified. Siddharth Stanford MD Objective Remarks AAOx3 The patient is nad, mild respiratory distress There is diffuse bilateral wheezing mostly in expiratory phase on bilateral lung hemphill and wheezing at the level of the larynx - improving (-) use of accessory muscles of respiration Abdomen is soft, non tender, mildly distended with positive bowel sounds. No edema observed on lower extremities Procedures none Medications and IVs Current Medications Medications (Trade) Dose Ordered Sig/Aishwarya Route Start Time Stop Time Status Last Admin (Zofran Inj) 4 mg Q6H PRN IVP 10/02/17 18:30 (Narcan Inj) 0.4 mg UNSCH PRN IV PUSH 10/02/17 18:30 (Milk Of Magnesia Liq) 30 ml Q12H PRN PO 10/02/17 18:30 10/06/17 08:36 (Senokot) 17.2 mg Q12H PRN PO 10/02/17 18:30 (Dulcolax Supp) 10 mg DAILY PRN RECTAL 10/02/17 18:30 (Lactulose Liq) 30 ml DAILY PRN PO 10/02/17 18:30 10/04/17 08:38 (NS Flush) 2 ml BID IV FLUSH 10/02/17 21:00 10/07/17 20:35 (NS Flush) 2 ml UNSCH PRN IV FLUSH 10/02/17 18:30 10/04/17 05:39 (KCl) 20 meq BID PO 10/02/17 21:00 10/07/17 07:54 (Robitussin Dm 200-20 Mg/10 ml Liq) 10 ml Q4H PRN PO 10/02/17 19:30 (Zyloprim) 300 mg DAILY PO 10/03/17 09:00 10/07/17 07:55 (Colchicine) 0.6 mg MoWeFr PO 10/02/17 19:30 10/07/17 07:55 (Proscar) 5 mg DAILY PO 10/02/17 19:30 10/07/17 07:55 (Prinivil) 20 mg DAILY PO 10/02/17 19:30 Future Hold 10/04/17 08:42 (Claritin) 10 mg DAILY PO 10/03/17 09:00 10/07/17 07:55 (Minipress) 5 mg BID PO 10/02/17 21:00 10/07/17 20:36 (Flomax) 0.4 mg HS PO 10/02/17 21:00 10/07/17 20:36 (Ultram) 50 mg TID PO 10/03/17 09:00 10/07/17 17:28 (Coumadin) 2.5 mg SuTuWeThFrSa@1600 PO 10/02/17 19:34 Future Hold 10/03/17 16:00 (Coumadin) 5 mg Mo@1600 PO 10/07/17 16:00 Future Hold (Protonix) 20 mg DAILY PO 10/03/17 09:00 10/07/17 07:55 (Pravachol) 40 mg HS PO 10/02/17 21:00 10/07/17 20:35 (Vasotec Inj) 1.25 mg Q6H PRN IV PUSH 10/02/17 19:30 (Lopressor) 50 mg BID PO 10/04/17 21:00 10/07/17 20:36 Levofloxacin/ Dextrose 150 ml @ 100 mls/hr Q48H IV 10/04/17 11:00 10/06/17 11:12 (SoluMEDROL INJ) 125 mg Q6HR IV PUSH 10/05/17 12:00 10/08/17 00:41 (Duoneb Neb) 1 ampule Q4HR WHILE AWAKE NEB NEB 10/05/17 12:00 10/07/17 19:52 (Duoneb Neb) 1 ampule Q2HR NEB PRN NEB 10/05/17 12:00 (Dulcolax Supp) 10 mg DAILY RECTAL 10/07/17 09:00 (Lactulose Liq) 30 ml DAILY PO 10/06/17 18:00 10/07/17 07:54 A/P Problem List: (1) Acute respiratory failure ICD Code: J96.00 - Acute respiratory failure, unspecified whether with hypoxia or hypercapnia Status: Acute (2) Acute diastolic heart failure ICD Code: I50.31 - Acute diastolic (congestive) heart failure (3) COPD exacerbation ICD Code: J44.1 - Chronic obstructive pulmonary disease with (acute) exacerbation (4) Atrial fibrillation ICD Code: I48.91 - Unspecified atrial fibrillation (5) Acute kidney injury ICD Code: N17.9 - Acute kidney failure, unspecified Status: Acute (6) Essential (primary) hypertension ICD Code: I10 - Essential (primary) hypertension Status: Chronic (7) Elevated troponin ICD Code: R74.8 - Abnormal levels of other serum enzymes Status: Acute (8) CKD (chronic kidney disease), stage III ICD Code: N18.3 - Chronic kidney disease, stage 3 (moderate) Assessment and Plan 1. Acute hypoxemic respiratory failure. 2. COPD exacerbation. 3. Suspected acute diastolic congestive heart failure. Initially patient placed on BiPAP and improved overnight and was weaned off to 2 L nasal cannula. The patient was started on DuoNeb nebulizer treatments, IV Solu-Medrol and patient started on doxycycline. Doxycycline was discontinued and the patient was started on IV Levaquin. The patient became very wheezy and a moderate respiratory distress for which the patient was given 125 minutes of IV Solu-Medrol on 10/04 and the dose of Solu -Medrol was increased back up to 60 mg IV every 6 hours. Patient initially was placed on Lasix, however given creatinine rise then this was held and the patient was placed on IV fluids at a rate of 84 mL's per hour. 2-D echocardiogram was obtained and showed normal left ventricular size, moderate concentric left ventricle hypertrophy, mild MR, mild to moderate TR and moderate pulmonary hypertension (47 mmHg). 10/05 patient currently on moderate to severe respiratory distress with wheezing audible in bilateral lung hemphill however most prominent In the throat at the level of the larynx. I will order a racemic epinephrine nebulizer treatment and afterwards will place on continuous nebulizer treatments. Check chest x- ray stat, will increase the dose of Solu-Medrol 125 every 6 hours. If there is no improvement then will place back on BiPAP and transferred to the intensive care unit. Will consult grinding machine operator. 10/06 Breathing status improving. Off Bipap. Continue same dose of IV Solumedrol for now. Start steroid taper tomorrow. Add incentive spirometry. 10/07 Patient stil with significant wheeing. Continue IV SLumedrol, pulmonology following. 4. Chronic atrial fibrillation 5. Elevated troponin 6. Hypertension] 8. Hyperlipidemia history-continue statin. EKG on admission and reviewed by me showed atrial fibrillation with marked right axis deviation at a ventricular rate of 80 bpm, QTC of 405. No ST-T changes suggestive of active ischemiaAtrial fibrillation rate controlled on metoprolol tartrate. Continue. Will trend cardiac enzymes which are likely elevated secondary to demand ischemia. Consult cardiology. Should is on chronic anti-correlation with Coumadin, INR became supratherapeutic on 10/04 so Coumadin was held on this date. PT/INR daily. We'll consult pharmacy to help with dosing. Patient on metoprolol and lisinopril for hypertension. Given elevated creatinine I will hold CANDACE inhibitor and continue beta carlos. 10/06 consult cardiology since troponin trending up. Also frequent PVC's - Keep magnesium >2 and potassium >4. Continue to monitor on telemetry. 10/07 appreciate cardiology recommendations. Plan for lexiscan. Cannot receive BB due to COPD. Echo with normal ventricular size and moderate concentric left ventricular hypertrophy. Ef normal. 7. Deconditioning with generalized weakness due to acute respiratory failure and acute bronchitis -await physical therapy evaluation 9. Chronic kidney disease stage III -stable overnight, monitor on diuretics, avoid nephrotoxins. Baseline creatinine 1.6 to 1.8 as per . 10. RODRIGO on admission patient had elevated creatinine at 1.86 which has slowly been trending up and on 05/09 2.62. Lasix was held and the patient was place on gentle IV fluids. Patient is on severe respiratory distress, DC IV fluids and give 80 mg of IV Lasix once and consult nephrology for further recommendations. 10/06 appreciate nephrology recs. renal us did not show any obstruction. Creatinine improving, continue to monitor BMP. Fu nephrology recommendations. 10/07 Creatinine trending down, continue to monitor BUN/creatinine, nephrollogy following. 7. DVT prophylaxis-on Coumadin - held due to supratherapeutic INR. 8. Constipation/Early small bowel obstruction: Patient is sp Miralax yesterday without success. Milk of magnesia given last night. Will Rx Dulcolax suppository. 10/07 Rn reported 2 bowel movements. Abdomen x ray shows possible early bowel obstruction. Patient is not nauseous and has not vomited. GI consulted. Recommendations appreciated. 9. Hematuria As per RN reported traumatic pichardo insertion. Hematuria seems to be clearing. No clots observed. coumadin held, continue to hold. 10/07 Hematuria still present but improving. Continue to hold Coumadin. Discharge Planning Pending clinical improvement - still significant wheezing but respiratory status improving. Problem Qualifiers (1) Acute respiratory failure: Qualified Codes: J96.01 - Acute respiratory failure with hypoxia Anam Burgess MD Oct 08, 2017 06:52
[2017-10-08 07:49] LABS: OVALOCYTES 1+ (NORMAL)
[2017-10-08] MEDS: RESP: ALBUTEROL 2.5 MG/IPRATROPIUM 0.5 MG NEB (SCH) NEB ×4 (08:06→20:18)
--- NOTE | 2017-10-08 08:15 | PD.CARD.PN ---
Subjective Subjective Remarks continues to feel SOB at rest, using nasal cannula O2. tele reveals one episode of 5 beat NSVT overnight. no chest pain Objective Medications Current Medications Medications (Trade) Dose Ordered Sig/Aishwarya Route Start Time Stop Time Status Last Admin (Zofran Inj) 4 mg Q6H PRN IVP 10/02/17 18:30 (Narcan Inj) 0.4 mg UNSCH PRN IV PUSH 10/02/17 18:30 (Milk Of Magnesia Liq) 30 ml Q12H PRN PO 10/02/17 18:30 10/06/17 08:36 (Senokot) 17.2 mg Q12H PRN PO 10/02/17 18:30 (Dulcolax Supp) 10 mg DAILY PRN RECTAL 10/02/17 18:30 (Lactulose Liq) 30 ml DAILY PRN PO 10/02/17 18:30 10/04/17 08:38 (NS Flush) 2 ml BID IV FLUSH 10/02/17 21:00 10/07/17 20:35 (NS Flush) 2 ml UNSCH PRN IV FLUSH 10/02/17 18:30 10/04/17 05:39 (KCl) 20 meq BID PO 10/02/17 21:00 10/07/17 07:54 (Robitussin Dm 200-20 Mg/10 ml Liq) 10 ml Q4H PRN PO 10/02/17 19:30 (Zyloprim) 300 mg DAILY PO 10/03/17 09:00 10/07/17 07:55 (Colchicine) 0.6 mg MoWeFr PO 10/02/17 19:30 10/07/17 07:55 (Proscar) 5 mg DAILY PO 10/02/17 19:30 10/07/17 07:55 (Prinivil) 20 mg DAILY PO 10/02/17 19:30 Future Hold 10/04/17 08:42 (Claritin) 10 mg DAILY PO 10/03/17 09:00 10/07/17 07:55 (Minipress) 5 mg BID PO 10/02/17 21:00 10/07/17 20:36 (Flomax) 0.4 mg HS PO 10/02/17 21:00 10/07/17 20:36 (Ultram) 50 mg TID PO 10/03/17 09:00 10/07/17 17:28 (Coumadin) 2.5 mg SuTuWeThFrSa@1600 PO 10/02/17 19:34 Future Hold 10/03/17 16:00 (Coumadin) 5 mg Mo@1600 PO 10/07/17 16:00 Future Hold (Protonix) 20 mg DAILY PO 10/03/17 09:00 10/07/17 07:55 (Pravachol) 40 mg HS PO 10/02/17 21:00 10/07/17 20:35 (Vasotec Inj) 1.25 mg Q6H PRN IV PUSH 10/02/17 19:30 (Lopressor) 50 mg BID PO 10/04/17 21:00 10/07/17 20:36 Levofloxacin/ Dextrose 150 ml @ 100 mls/hr Q48H IV 10/04/17 11:00 10/06/17 11:12 (SoluMEDROL INJ) 125 mg Q6HR IV PUSH 10/05/17 12:00 10/08/17 06:50 (Duoneb Neb) 1 ampule Q4HR WHILE AWAKE NEB NEB 10/05/17 12:00 10/08/17 08:06 (Duoneb Neb) 1 ampule Q2HR NEB PRN NEB 10/05/17 12:00 (Dulcolax Supp) 10 mg DAILY RECTAL 10/07/17 09:00 (Lactulose Liq) 30 ml DAILY PO 10/06/17 18:00 10/07/17 07:54 Vital Signs / I&O Vital Signs Date Time Temp Pulse Resp B/P (MAP) Pulse Ox O2 Delivery O2 Flow Rate FiO2 10/08/17 08:06 98 Nasal Cannula 3.00 10/08/17 07:15 97.4 77 20 131/80 (97) 98 10/08/17 07:15 98 Nasal Cannula 10/08/17 06:25 77 10/08/17 05:08 77 10/08/17 04:34 93 10/08/17 03:00 98.1 75 21 148/79 (102) 98 10/08/17 03:00 79 10/08/17 02:10 77 10/08/17 01:08 69 10/08/17 00:10 85 10/07/17 23:15 97.8 81 22 146/87 (106) 96 10/07/17 23:15 80 10/07/17 22:03 90 10/07/17 21:01 90 10/07/17 20:52 96 10/07/17 19:52 97 Nasal Cannula 3.00 10/07/17 19:25 90 10/07/17 19:25 98.4 96 21 129/68 (88) 98 10/07/17 19:25 98 Nasal Cannula 3.00 10/07/17 18:00 98 10/07/17 17:00 85 10/07/17 16:00 84 10/07/17 15:00 98.0 112 24 131/92 (105) 99 10/07/17 15:00 105 10/07/17 14:00 96 10/07/17 13:00 75 10/07/17 12:00 78 10/07/17 11:00 98.8 78 24 134/67 (89) 97 10/07/17 11:00 80 10/07/17 10:00 76 10/07/17 09:00 82 10/07/17 08:27 96 Nasal Cannula 3.00 I/O 10/07/17 10/07/17 10/07/17 10/08/17 10/08/17 10/08/17 07:00 15:00 23:00 07:00 15:00 23:00 Intake Total 480 ml 720 ml 240 ml Output Total 550 ml 900 ml 1600 ml Balance -70 ml -180 ml -1360 ml Intake Oral 480 ml 720 ml 240 ml Output Urine Total 550 ml 900 ml 1600 ml # Bowel Movements 2 2 0 Physical Exam GENERAL: SKIN: Warm and dry. HEAD: Atraumatic. Normocephalic. EYES: Pupils equal and round. ENT: No nasal bleeding or discharge. NECK: Trachea midline. No JVD. CARDIOVASCULAR: Regular rate and rhythm. no murmurs RESPIRATORY: mildly tachypneic, +bilateral expiratory wheeze GASTROINTESTINAL: Abdomen soft, non-tender, nondistended. MUSCULOSKELETAL: Extremities without clubbing, cyanosis, or edema. No obvious deformities. NEUROLOGICAL: Awake and alert. No obvious cranial nerve deficits. Normal speech. PSYCHIATRIC: Appropriate mood and affect; insight and judgment normal. Laboratory Laboratory Tests Test 10/07/17 12:23 10/08/17 03:15 White Blood Count 7.7 TH/MM3 6.5 TH/MM3 Red Blood Count 4.59 MIL/MM3 4.34 MIL/MM3 Hemoglobin 13.7 GM/DL 13.1 GM/DL Hematocrit 42.3 % 39.7 % Mean Corpuscular Volume 92.2 FL 91.6 FL Mean Corpuscular Hemoglobin 30.0 PG 30.1 PG Mean Corpuscular Hemoglobin Concent 32.5 % 32.9 % Red Cell Distribution Width 17.2 % 16.8 % Platelet Count 87 TH/MM3 74 TH/MM3 Mean Platelet Volume 10.3 FL 10.2 FL Blood Urea Nitrogen 74 MG/DL 72 MG/DL Creatinine 1.89 MG/DL 1.98 MG/DL Random Glucose 146 MG/DL 158 MG/DL Albumin 3.1 GM/DL 2.8 GM/DL Calcium Level 9.1 MG/DL 8.8 MG/DL Phosphorus Level 2.6 MG/DL Sodium Level 138 MEQ/L 138 MEQ/L Potassium Level 5.4 MEQ/L 4.7 MEQ/L Chloride Level 103 MEQ/L 103 MEQ/L Carbon Dioxide Level 25.5 MEQ/L 29.2 MEQ/L Anion Gap 10 MEQ/L 6 MEQ/L Estimat Glomerular Filtration Rate 34 ML/MIN 33 ML/MIN Neutrophils (%) (Auto) 92.7 % Lymphocytes (%) (Auto) 3.4 % Monocytes (%) (Auto) 3.9 % Eosinophils (%) (Auto) 0.0 % Basophils (%) (Auto) 0.0 % Neutrophils # (Auto) 6.0 TH/MM3 Lymphocytes # (Auto) 0.2 TH/MM3 Monocytes # (Auto) 0.2 TH/MM3 Eosinophils # (Auto) 0.0 TH/MM3 Basophils # (Auto) 0.0 TH/MM3 CBC Comment AUTO DIFF Differential Comment AUTO DIFF CONFIRMED Platelet Estimate LOW Platelet Morphology Comment NORMAL Ovalocytes 1+ Prothrombin Time 27.0 SEC Prothromb Time International Ratio 2.7 RATIO Total Protein 5.6 GM/DL Alkaline Phosphatase 105 U/L Aspartate Amino Transf (AST/SGOT) 62 U/L Alanine Aminotransferase (ALT/SGPT) 93 U/L Total Bilirubin 0.7 MG/DL Imaging Last 24 hours Impressions Abdomen X-Ray 10/08/17 0600 Signed Impressions: Service Date/Time: Sunday, October 08, 2017 06:31 - CONCLUSION: 1. Resolution of the previously seen dilated bowel. 2. Gallstones 3. Severe chronic change at the left hip. Jorge Paz MD Assessment and Plan Problem List: (1) Congestive heart failure ICD Codes: I50.9 - Heart failure, unspecified Status: Acute (2) Elevated troponin ICD Codes: R74.8 - Abnormal levels of other serum enzymes Status: Acute (3) Atrial fibrillation ICD Codes: I48.91 - Unspecified atrial fibrillation Assessment and Plan 82 yo M with COPD, CHF and afib presented with progressive sob. acute on chronic CHF- EF normal, mild-mod TR. HTN- stable, no bb due to COPD NSVT- occasional ~5 beat runs, lexiscan today NSTEMI- no chest pain, troponin elevation likely demand mediated secondary to respiratory insuff vs. CKD Problem Qualifiers (1) Congestive heart failure: Qualified Codes: I50.9 - Heart failure, unspecified Adrianna Lauren Oct 08, 2017 08:15
--- NOTE | 2017-10-08 08:27 | HHI.PR ---
Subjective Remarks ALERT less sob Objective Vital Signs Date Time Temp Pulse Resp B/P (MAP) Pulse Ox O2 Delivery O2 Flow Rate FiO2 10/08/17 08:06 98 Nasal Cannula 3.00 10/08/17 07:15 97.4 77 20 131/80 (97) 98 10/08/17 07:15 98 Nasal Cannula 10/08/17 06:25 77 10/08/17 05:08 77 10/08/17 04:34 93 10/08/17 03:00 98.1 75 21 148/79 (102) 98 10/08/17 03:00 79 10/08/17 02:10 77 10/08/17 01:08 69 10/08/17 00:10 85 10/07/17 23:15 97.8 81 22 146/87 (106) 96 10/07/17 23:15 80 10/07/17 22:03 90 10/07/17 21:01 90 10/07/17 20:52 96 10/07/17 19:52 97 Nasal Cannula 3.00 10/07/17 19:25 90 10/07/17 19:25 98.4 96 21 129/68 (88) 98 10/07/17 19:25 98 Nasal Cannula 3.00 10/07/17 18:00 98 10/07/17 17:00 85 10/07/17 16:00 84 10/07/17 15:00 98.0 112 24 131/92 (105) 99 10/07/17 15:00 105 10/07/17 14:00 96 10/07/17 13:00 75 10/07/17 12:00 78 10/07/17 11:00 98.8 78 24 134/67 (89) 97 10/07/17 11:00 80 10/07/17 10:00 76 10/07/17 09:00 82 10/07/17 08:27 96 Nasal Cannula 3.00 I/O 10/07/17 10/07/17 10/07/17 10/08/17 10/08/17 10/08/17 07:00 15:00 23:00 07:00 15:00 23:00 Intake Total 480 ml 720 ml 240 ml Output Total 550 ml 900 ml 1600 ml Balance -70 ml -180 ml -1360 ml Intake Oral 480 ml 720 ml 240 ml Output Urine Total 550 ml 900 ml 1600 ml # Bowel Movements 2 2 0 Result Diagram: 10/08/1731410/08/17314 Objective Remarks GENERAL: SKIN: Warm and dry. HEAD: Atraumatic. Normocephalic. EYES: Pupils equal and round. No scleral icterus. No injection or drainage. ENT: No nasal bleeding or discharge. Mucous membranes pink and moist. NECK: Trachea midline. No JVD. CARDIOVASCULAR: Regular rate and rhythm. RESPIRATORY: No accessory muscle use. , SCATTERED RHONCHI Clear to auscultation. Breath sounds equal bilaterally. GASTROINTESTINAL: Abdomen soft, non-tender, nondistended. Hepatic and splenic margins not palpable. MUSCULOSKELETAL: Extremities without clubbing, cyanosis, or edema. No obvious deformities. NEUROLOGICAL: Awake and alert. No obvious cranial nerve deficits. Motor grossly within normal limits. Five out of 5 muscle strength in the arms and legs. Normal speech. PSYCHIATRIC: Appropriate mood and affect; insight and judgment normal. Assessment and Plan Assessment and Plan COPD EXACERBATION CHF PLAN O2 BRONCHODILATORS STEROIDS ANTIBX WILL FOLLOW Fitz Byrnes MD Oct 08, 2017 08:27
[2017-10-08] MEDS: PANTOPRAZOLE SOD 20 MG DELAYED RELEASE TAB PO SCH (08:48)
[2017-10-08] MEDS: ALLOPURINOL 300 MG TAB PO SCH (08:48)
[2017-10-08] MEDS: LORATADINE 10 MG TAB PO SCH (08:49)
[2017-10-08] MEDS: FINASTERIDE 5 MG TAB PO SCH (08:49)
[2017-10-08] MEDS: METOPROLOL TARTRATE 50 MG TAB PO SCH ×2 (08:49→20:44)
[2017-10-08] MEDS: POTASSIUM CHLORIDE 20 MEQ CONTROLLED RELEASE TAB PO SCH ×2 (08:49→20:44)
[2017-10-08] MEDS: LACTULOSE SYRUP 20 GM/30 ML CUP PO SCH (08:50)
[2017-10-08] MEDS: traMADol HCL 50 MG TAB PO SCH ×3 (08:50→18:10)
[2017-10-08] MEDS: BISACODYL 10 MG SUPP RECTAL SCH (08:50)
[2017-10-08] MEDS: PRAZOSIN HCL 5 MG CAP PO SCH ×2 (08:51→20:44)
[2017-10-08] MEDS: SODIUM CHLORIDE 0.9% FLUSH 10 ML FLUSH IV FLUSH SCH ×2 (08:53→20:43)
[2017-10-08] MEDS ORDERED: REGADENOSON INJ 0.4 MG/5 ML SYR ONE (10:19)
--- NOTE | 2017-10-08 12:13 | RADRPT ---
EXAM DATE/TIME: 10/08/2017 09:45 [facility] COMPARISON: CT THORAX W/O CONTRAST, October 06, 2017, 21:23. CHEST SINGLE AP, October 05, 2017, 11:56. INDICATIONS : Abnormal EKG. Congestive heart failure. DOSE: 27.3 mCi Tc99m Myoview at stress. 8.5 mCi Tc99m Myoview at rest. 0.4 mg Lexiscan STRESS SYMPTOMS: None. EJECTION FRACTION: 48% MEDICAL HISTORY : Hypertension. Chronic obstructive pulmonary disease. Congestive heart failure. SURGICAL HISTORY : Left hip suregery. ENCOUNTER: Initial ACUITY: 1 day PAIN SCALE: 3/10 LOCATION: Bilateral chest TECHNIQUE: The patient underwent pharmacologic stress with infusion of prescribed dose. Continuous ECG tracing was monitored during stress. Gated SPECT imaging was performed after stress and conventional SPECT i maging was performed at rest. The examination was performed on a SPECT/CT scanner, both attenuation and non-corrected datasets were reviewed. FINDINGS: DISTRIBUTION: The maximum perfused segment at stress is in the anterior lateral wall. PERFUSION STUDY: The pattern of perfusion at stress is within normal limits. GATED STUDY: There is intact wall motion and thickening without hypokinetic or dyskinetic segments. CONCLUSION: Ejection fraction diminished at 48%. Otherwise negative. No perfusion defects appreciated RISK CATEGORY: Intermediate (1-3% Annual Mortality Rate) Tyler Ferris MD on October 08, 2017 at 12:08 Board Certified Radiologist. This report was verified electronically.
[2017-10-08] MEDS: LEVOFLOXACIN 750 MG PREMIX INJ 150 ML IV SCH (12:20)
[2017-10-08] MEDS: SODIUM CHLORIDE 0.9% FLUSH 10 ML FLUSH IV FLUSH PRN (12:20)
--- NOTE | 2017-10-08 16:50 | HHI.NPPN ---
Subjective Renal Failure: Acute Interval History Had negative stress test today. Creatinine is slightly higher. He has less wheezing on exam. (Gaby Flannery) Review of Systems General Constitutional: Fatigue (Gaby Flannery) Respiratory Lungs: SOB, Cough (Gaby Flannery) Objective Data Data Vital Signs Date Time Temp Pulse Resp B/P (MAP) Pulse Ox O2 Delivery O2 Flow Rate FiO2 10/08/17 16:02 81 10/08/17 15:41 97.4 89 21 125/67 (86) 96 10/08/17 15:22 88 10/08/17 14:03 97 Room Air 10/08/17 14:00 82 10/08/17 13:00 88 10/08/17 12:13 83 10/08/17 12:01 97.6 68 24 137/65 (89) 97 10/08/17 11:38 84 10/08/17 09:00 82 10/08/17 08:06 98 Nasal Cannula 3.00 10/08/17 08:00 82 10/08/17 07:15 97.4 77 20 131/80 (97) 98 10/08/17 07:15 98 Nasal Cannula 10/08/17 07:00 83 10/08/17 06:25 77 10/08/17 05:08 77 10/08/17 04:34 93 10/08/17 03:00 98.1 75 21 148/79 (102) 98 10/08/17 03:00 79 10/08/17 02:10 77 10/08/17 01:08 69 10/08/17 00:10 85 10/07/17 23:15 97.8 81 22 146/87 (106) 96 10/07/17 23:15 80 10/07/17 22:03 90 10/07/17 21:01 90 10/07/17 20:52 96 10/07/17 19:52 97 Nasal Cannula 3.00 10/07/17 19:25 90 10/07/17 19:25 98.4 96 21 129/68 (88) 98 10/07/17 19:25 98 Nasal Cannula 3.00 10/07/17 18:00 98 10/07/17 17:00 85 (Gaby Flannery) -: 10/08/17 0315 10/08/17 0315 Imaging Last 72 hours Impressions Abdomen X-Ray 10/08/17 0600 Signed Impressions: Service Date/Time: Sunday, October 08, 2017 06:31 - CONCLUSION: 1. Resolution of the previously seen dilated bowel. 2. Gallstones 3. Severe chronic change at the left hip. Jorge Paz MD Myocardial Perfusion Scan Nuc Med 10/08/17 0000 Signed Impressions: Service Date/Time: Sunday, October 08, 2017 09:45 - CONCLUSION: Ejection fraction diminished at 48%%. Otherwise negative. No perfusion defects appreciated RISK CATEGORY: Intermediate (1-3%% Annual Mortality Rate) Tyler Ferris MD Chest CT 10/06/17 0000 Signed Impressions: Service Date/Time: Friday, October 06, 2017 21:23 - CONCLUSION: 1. Mild patchy lobar consolidation of the left upper lobe, series 3 image 37. 2. Mild basilar predominant atypical appearing tree in bud type changes of both lungs. 3. Small pericardial effusion, nonspecific age and etiology. 4. Coronary artery calcification. 5. Mild biatrial enlargement. 6. Cholelithiasis partly seen. Jorge Wright MD Abdomen X-Ray 10/06/17 0000 Signed Impressions: Service Date/Time: Friday, October 06, 2017 21:32 - CONCLUSION: 1. Nonspecific bowel gas pattern. Early or partial small bowel obstruction not excludable. Clinical and x-ray surveillance recommended. 2. Cholelithiasis. 3. Severe chronic appearing arthropathy of the left hip. Jorge Wright MD Tubes & Lines: Gandhi (Gaby Flannery) Physical Exam General Appearance: Well Developed, No Acute Distress, Comfortable (Gaby FlanneryP) Eyes Eye Exam: Pupils Equal (Gaby FlanneryP) Neck Neck Exam: Neck Supple (Gaby FlanneryP) Pulmonary Resp Exam: Breath Sounds Equal, Rhonchi, Labored Resp Remarks Exp wheezing, much improved (Gaby Flannery BJanessa BINGHAMP) Cardiology CV Exam: Irregular (Gaby Flannery BJanessa BINGHAMP) Gastrointestinal/Abdomen GI Exam: Soft, Non-Tender, Bowel Sounds Present (Gaby FlanneryP) Musculoskeletal MS Exam: Joints Intact, Normal Tone (Gaby Flannery) Integumentary Skin Exam: Warm, Dry, Intact (Gaby Flannery) Extremeties Extremities Exam: No Edema, Pedal Pulses Palpable (Gaby Flannery) Neurologic Neuro Exam: Alert, Awake, Oriented, Speech Clear, Moving All Extremities (Gaby Flannery) Psychiatric Psych Exam: Appropriate Responses (Gaby Flannery) Assessment/Plan Discussed Condition With: Patient Assessment Summary: RODRIGO/Acute Renal Failure, Hypertension Problem List: (1) Acute kidney injury ICD Codes: N17.9 - Acute kidney failure, unspecified Status: Acute Plan: Renal function is slightly worse. Baseline creatinine 1.6. RODRIGO thought to be due to urinary retention. He is on Flomax and finasteride. Monitor urine output. Repeat labs tomorrow. Avoid nephrotoxic agents. He is not on IVF. (2) COPD exacerbation ICD Codes: J44.1 - Chronic obstructive pulmonary disease with (acute) exacerbation Plan: Pulmonary following, CT reviewed. He is on bronchodilators, continuous oxygen, and steroids. (3) Congestive heart failure ICD Codes: I50.9 - Heart failure, unspecified Status: Acute Plan: EF 48%, negative stress test (4) Atrial fibrillation ICD Codes: I48.91 - Unspecified atrial fibrillation Plan: Rate is controlled. INR therapeutic. Anticoagulation to resume tonight. (5) Essential (primary) hypertension ICD Codes: I10 - Essential (primary) hypertension Status: Chronic Plan: He is on metoprolol and Minipress. CANDACE inhibitor held. (Gaby Flannery) Plan patient was seen and examined. Agree with above assessment and plan. (Semaj Garza MD) Problem Qualifiers (1) Congestive heart failure: Qualified Codes: I50.9 - Heart failure, unspecified Gaby Flannery Oct 08, 2017 16:50 Semaj Garza MD Oct 08, 2017 20:10
--- NOTE | 2017-10-08 16:53 | HHI.GIFU ---
Subjective Remarks Pt reports normal BM today. Denies abdominal pain, nausea, vomiting. Has also been having lots of flatus. (Pilar Cordoba) Objective Vitals I&O Vital Signs Date Time Temp Pulse Resp B/P (MAP) Pulse Ox O2 Delivery O2 Flow Rate FiO2 10/08/17 16:02 81 10/08/17 15:41 97.4 89 21 125/67 (86) 96 10/08/17 15:22 88 10/08/17 14:03 97 Room Air 10/08/17 14:00 82 10/08/17 13:00 88 10/08/17 12:13 83 10/08/17 12:01 97.6 68 24 137/65 (89) 97 10/08/17 11:38 84 10/08/17 09:00 82 10/08/17 08:06 98 Nasal Cannula 3.00 10/08/17 08:00 82 10/08/17 07:15 97.4 77 20 131/80 (97) 98 10/08/17 07:15 98 Nasal Cannula 10/08/17 07:00 83 10/08/17 06:25 77 10/08/17 05:08 77 10/08/17 04:34 93 10/08/17 03:00 98.1 75 21 148/79 (102) 98 10/08/17 03:00 79 10/08/17 02:10 77 10/08/17 01:08 69 10/08/17 00:10 85 10/07/17 23:15 97.8 81 22 146/87 (106) 96 10/07/17 23:15 80 10/07/17 22:03 90 10/07/17 21:01 90 10/07/17 20:52 96 10/07/17 19:52 97 Nasal Cannula 3.00 10/07/17 19:25 90 10/07/17 19:25 98.4 96 21 129/68 (88) 98 10/07/17 19:25 98 Nasal Cannula 3.00 10/07/17 18:00 98 10/07/17 17:00 85 I/O 10/07/17 10/07/17 10/07/17 10/08/17 10/08/17 10/08/17 07:00 15:00 23:00 07:00 15:00 23:00 Intake Total 480 ml 720 ml 240 ml Output Total 550 ml 900 ml 1600 ml Balance -70 ml -180 ml -1360 ml Intake Oral 480 ml 720 ml 240 ml Output Urine Total 550 ml 900 ml 1600 ml # Bowel Movements 2 2 0 Laboratory Laboratory Tests Test 10/08/17 03:15 White Blood Count 6.5 Red Blood Count 4.34 Hemoglobin 13.1 Hematocrit 39.7 Mean Corpuscular Volume 91.6 Mean Corpuscular Hemoglobin 30.1 Mean Corpuscular Hemoglobin Concent 32.9 Red Cell Distribution Width 16.8 Platelet Count 74 Mean Platelet Volume 10.2 Neutrophils (%) (Auto) 92.7 Lymphocytes (%) (Auto) 3.4 Monocytes (%) (Auto) 3.9 Eosinophils (%) (Auto) 0.0 Basophils (%) (Auto) 0.0 Neutrophils # (Auto) 6.0 Lymphocytes # (Auto) 0.2 Monocytes # (Auto) 0.2 Eosinophils # (Auto) 0.0 Basophils # (Auto) 0.0 CBC Comment AUTO DIFF Differential Comment AUTO DIFF CONFIRMED Platelet Estimate LOW Platelet Morphology Comment NORMAL Ovalocytes 1+ Prothrombin Time 27.0 Prothromb Time International Ratio 2.7 Blood Urea Nitrogen 72 Creatinine 1.98 Random Glucose 158 Total Protein 5.6 Albumin 2.8 Calcium Level 8.8 Alkaline Phosphatase 105 Aspartate Amino Transf (AST/SGOT) 62 Alanine Aminotransferase (ALT/SGPT) 93 Total Bilirubin 0.7 Sodium Level 138 Potassium Level 4.7 Chloride Level 103 Carbon Dioxide Level 29.2 Anion Gap 6 Estimat Glomerular Filtration Rate 33 Date/Time Source Procedure Growth Status 10/02/17 15:55 Nasal Aspirate Influenza Types A,B Antigen (CHANDLER) - Final NEGATIVE FOR FLU A AND B ANTIGEN.... Complete Imaging Last Impressions Abdomen X-Ray 10/08/17 0600 Signed Impressions: Service Date/Time: Sunday, October 08, 2017 06:31 - CONCLUSION: 1. Resolution of the previously seen dilated bowel. 2. Gallstones 3. Severe chronic change at the left hip. Jorge Paz MD Myocardial Perfusion Scan Nuc Med 10/08/17 0000 Signed Impressions: Service Date/Time: Sunday, October 08, 2017 09:45 - CONCLUSION: Ejection fraction diminished at 48%%. Otherwise negative. No perfusion defects appreciated RISK CATEGORY: Intermediate (1-3%% Annual Mortality Rate) Tyler Ferris MD Chest CT 10/06/17 0000 Signed Impressions: Service Date/Time: Friday, October 06, 2017 21:23 - CONCLUSION: 1. Mild patchy lobar consolidation of the left upper lobe, series 3 image 37. 2. Mild basilar predominant atypical appearing tree in bud type changes of both lungs. 3. Small pericardial effusion, nonspecific age and etiology. 4. Coronary artery calcification. 5. Mild biatrial enlargement. 6. Cholelithiasis partly seen. Jorge Wright MD Renal Ultrasound 10/05/17 0000 Signed Impressions: Service Date/Time: Thursday, October 05, 2017 20:26 - CONCLUSION: 1. Chronic parenchymal disease. 2. No obstruction or acute abnormality demonstrated. 3. Large, benign appearing cyst of the left upper pole. Jorge Wright MD Chest X-Ray 10/05/17 0000 Signed Impressions: Service Date/Time: Thursday, October 05, 2017 11:56 - CONCLUSION: Mild left midlung atelectasis. No other acute cardiopulmonary disease identified. Siddharth Stanford MD Physical Exam HEENT: Normocephalic; atraumatic CHEST: Even/unlabored CARDIAC: RRR ABDOMEN: Distended, firm, nontender, periumbilical hernia, bowel sounds active SKIN: Normal; no rash; no jaundice. 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 (Pilar Cordoba [facility]) Assessment and Plan Plan Assessment: - Abdominal distension/constipation- Pt reports constipation for three or four days but after receiving Lactulose yesterday, reports having 3 BMs. One yesterday and two today, states all have been loose but formed. Pt denies nausea, vomiting, abdominal pain, BRBPR, melena. KUB (10/06) --> Nonspecific bowel gas pattern. Early or partial small bowel obstruction not excludable. Clinical and x-ray surveillance recommended. Cholelithiasis. Severe chronic appearing arthropathy of the left hip. Clinically no significance for SBO, pt tolerating PO, denies nausea and vomiting and is having formed BMs. Will repeat KUB in AM, pt has now had 3 BMs since exam last done. Hold off on NGT, not currently indicated given pt has no symptoms at this time. - Cardiology following and planning for Lexiscan stress test tomorrow if pts respiratory status is stable - SOB- pulmonology following Pt currently on 3 L NC (10/08) Pt reports having another BM today, normal. Also passing flatus. Repeat KUB (10/08) --> Resolution of the previously seen dilated small bowel. Gallstones. Severe chronic change at the left hip. No GI symptoms at this time Plan: - Continue bowel regimen to prevent constipation - GI will sign off, due to resolution of KUB and no symptoms, please reconsult as needed Pt has been seen and examined by myself and Dr. Hinson and this note is written on his behalf. (Pilar Cordoba) Physician Comments Patient seen and examined Agree with above Continue with current supportive care Monitor labs Not much to add from a GI standpoint we will sign off (Misael Hinson MD) Pilar Cordoba Oct 08, 2017 16:53 Misael Hinson MD Oct 08, 2017 21:24
--- NOTE | 2017-10-08 17:04 | HHI.PR ---
Subjective Remarks Respirations improving. Not yet to baseline. Wheezing is still present. Minor crackles on the basis. Patient says he is feeling significantly better than when he arrived, even though he is not back to baseline. Objective Vital Signs Date Time Temp Pulse Resp B/P (MAP) Pulse Ox O2 Delivery O2 Flow Rate FiO2 10/08/17 16:02 81 10/08/17 15:41 97.4 89 21 125/67 (86) 96 10/08/17 15:22 88 10/08/17 14:03 97 Room Air 10/08/17 14:00 82 10/08/17 13:00 88 10/08/17 12:13 83 10/08/17 12:01 97.6 68 24 137/65 (89) 97 10/08/17 11:38 84 10/08/17 09:00 82 10/08/17 08:06 98 Nasal Cannula 3.00 10/08/17 08:00 82 10/08/17 07:15 97.4 77 20 131/80 (97) 98 10/08/17 07:15 98 Nasal Cannula 10/08/17 07:00 83 10/08/17 06:25 77 10/08/17 05:08 77 10/08/17 04:34 93 10/08/17 03:00 98.1 75 21 148/79 (102) 98 10/08/17 03:00 79 10/08/17 02:10 77 10/08/17 01:08 69 10/08/17 00:10 85 10/07/17 23:15 97.8 81 22 146/87 (106) 96 10/07/17 23:15 80 10/07/17 22:03 90 10/07/17 21:01 90 10/07/17 20:52 96 10/07/17 19:52 97 Nasal Cannula 3.00 10/07/17 19:25 90 10/07/17 19:25 98.4 96 21 129/68 (88) 98 10/07/17 19:25 98 Nasal Cannula 3.00 10/07/17 18:00 98 10/07/17 17:00 85 I/O 10/07/17 10/07/17 10/07/17 10/08/17 10/08/17 10/08/17 07:00 15:00 23:00 07:00 15:00 23:00 Intake Total 480 ml 720 ml 240 ml Output Total 550 ml 900 ml 1600 ml Balance -70 ml -180 ml -1360 ml Intake Oral 480 ml 720 ml 240 ml Output Urine Total 550 ml 900 ml 1600 ml # Bowel Movements 2 2 0 Result Diagram: 10/08/1731410/08/17314 Objective Remarks GENERAL: NAD, A&Ox3 HEAD: Normocephalic. NECK: Supple, trachea midline. No lymphadenopathy. EYES: No scleral icterus. No injection or drainage. CARDIOVASCULAR: Regular rate and rhythm without murmurs, gallops, or rubs. RESPIRATORY: Breath sounds equal bilaterally. No accessory muscle use. Crackles at bases bilaterally. Wheezing bilaterally. GASTROINTESTINAL: Abdomen soft, non-tender, nondistended. MUSCULOSKELETAL: No cyanosis, or edema. SKIN: Warm and dry. NEURO: No focal neurological deficitis. A/P Problem List: (1) Atrial fibrillation ICD Code: I48.91 - Unspecified atrial fibrillation (2) COPD exacerbation ICD Code: J44.1 - Chronic obstructive pulmonary disease with (acute) exacerbation (3) Congestive heart failure ICD Code: I50.9 - Heart failure, unspecified Status: Acute Assessment and Plan 82-year-old male admitted secondary to CHF and COPD exacerbations Acute hypoxemic respiratory failure COPD exacerbation Patient has done well with BiPAP Continue systemic steroids Continue doxycycline Continue Levaquin Continue duo nebs Continue as needed respiratory treatments Follow clinically for further improvement CHF exacerbation Diastolic congestive heart failure Atrial fibrillation Elevated troponin No signs of [place] No A. fib RVR Continue Lasix Follow clinically for further improvement Continue Coumadin Follow INR Hypertension Follow blood pressures Continue current treatments of metoprolol Lisinopril on hold due to elevation in creatinine Acute kidney injury Chronic kidney disease stage III May be related to fluid overload and decompensation as listed above Follow renal function Lisinopril on hold Hold other nephrotoxins Nephrology following Hyperlipidemia Continue statin Follows in outpatient Physical deconditioning Physical therapy Constipation Continue lactulose as needed Hematuria Coumadin on hold Follow urine output Monitor for improvement prior to resuming anticoagulants DVT prophylaxis SCDs given active bleed Problem Qualifiers (1) Congestive heart failure: Qualified Codes: I50.9 - Heart failure, unspecified Alex Maldonado MD Oct 08, 2017 17:04
[2017-10-08] MEDS: TAMSULOSIN HCL 0.4 MG CAP PO SCH (20:44)
[2017-10-08] MEDS: PRAVASTATIN SOD 40 MG TAB PO SCH (20:45)
[2017-10-09] VITALS (22 sets, daily range): BP systolic 130–142; BP diastolic 70–89; PULSE 73–97; RESP 18–22; TEMP 96.7–98.1; O2SAT 94–98
[2017-10-09 05:31] LABS: AUTOMATED NEUTROPHIL # 6.6 TH/MM3 (1.8-7.7); HEMATOCRIT 40.5 % (39.0-51.0); HEMOGLOBIN 13.1 GM/DL (13.0-17.0); LYMPH % 2.8 % (9.0-44.0); LYMPHOCYTE # 0.2 TH/MM3 (1.0-4.8); MEAN CELL VOLUME 91.5 FL (80.0-100.0); MEAN CORPUSCULAR HEMOGLOBIN 29.6 PG (27.0-34.0); MEAN CORPUSCULAR HGB CONC 32.4 % (32.0-36.0); MEAN PLATELET VOLUME 10.9 FL (7.0-11.0); MONOCYTE # 0.2 TH/MM3 (0-0.9); NEUT % 94.2 % (16.0-70.0); PLATELET COUNT 94 TH/MM3 (150-450); RED BLOOD COUNT 4.43 MIL/MM3 (4.50-5.90); RED CELL DISTRIBUTION WIDTH 16.8 % (11.6-17.2); WHITE BLOOD COUNT 7.1 TH/MM3 (4.0-11.0)
[2017-10-09 05:36] LABS: INTERNATIONAL NORMALIZED RATIO 2.1 RATIO; PROTHROMBIN TIME - PATIENT 20.9 SEC (9.8-11.6)
[2017-10-09] MEDS: methylPREDNISolone SOD SUCC 125 MG/2 ML VIAL IV PUSH SCH ×3 (05:38→18:08)
[2017-10-09 06:02] LABS: ALBUMIN 2.6 GM/DL (3.4-5.0); ALKALINE PHOSPHATASE 97 U/L (45-117); ALT (GPT) 101 U/L (12-78); AST (GOT) 51 U/L (15-37); BICARBONATE 28.6 MEQ/L (21.0-32.0); BLOOD UREA NITROGEN 61 MG/DL (7-18); CALCIUM 8.4 MG/DL (8.5-10.1); CHLORIDE 103 MEQ/L (98-107); CREATININE 1.57 MG/DL (0.60-1.30); GLOMERULAR FILTRATION RATE 43 ML/MIN (>89); GLUCOSE,RANDOM 160 MG/DL (74-106); SODIUM (NA) 137 MEQ/L (136-145); TOTAL BILIRUBIN ADULT 1.1 MG/DL (0.2-1.0); TOTAL PROTEIN 5.4 GM/DL (6.4-8.2)
[2017-10-09] MEDS: RESP: ALBUTEROL 2.5 MG/IPRATROPIUM 0.5 MG NEB (SCH) NEB ×2 (07:27→11:34)
[2017-10-09 08:02] LABS: OVALOCYTES 1+ (NORMAL)
[2017-10-09] MEDS: PRAZOSIN HCL 5 MG CAP PO SCH ×2 (08:54→19:55)
[2017-10-09] MEDS: ALLOPURINOL 300 MG TAB PO SCH (08:54)
[2017-10-09] MEDS: POTASSIUM CHLORIDE 20 MEQ CONTROLLED RELEASE TAB PO SCH ×2 (08:55→19:54)
[2017-10-09] MEDS: LORATADINE 10 MG TAB PO SCH (08:55)
[2017-10-09] MEDS: FINASTERIDE 5 MG TAB PO SCH (08:55)
[2017-10-09] MEDS: METOPROLOL TARTRATE 50 MG TAB PO SCH ×2 (08:55→19:54)
[2017-10-09] MEDS: traMADol HCL 50 MG TAB PO SCH ×3 (08:56→18:08)
[2017-10-09] MEDS: PANTOPRAZOLE SOD 20 MG DELAYED RELEASE TAB PO SCH (08:56)
[2017-10-09] MEDS: LACTULOSE SYRUP 20 GM/30 ML CUP PO SCH (09:00)
[2017-10-09] MEDS: SODIUM CHLORIDE 0.9% FLUSH 10 ML FLUSH IV FLUSH SCH ×2 (09:00→19:57)
--- NOTE | 2017-10-09 09:03 | PD.CARD.PN ---
Subjective Subjective Remarks The patient feels like his breathing is unchanged, still with chest congestion but wheezing is improved. No chest pain or palpitations. Did have a few 6 beat runs NSVT last night. (Nathaniel Hoffmann) Objective Medications Current Medications Medications (Trade) Dose Ordered Sig/Aishwarya Route Start Time Stop Time Status Last Admin (Zofran Inj) 4 mg Q6H PRN IVP 10/02/17 18:30 (Narcan Inj) 0.4 mg UNSCH PRN IV PUSH 10/02/17 18:30 (Milk Of Magnesia Liq) 30 ml Q12H PRN PO 10/02/17 18:30 10/06/17 08:36 (Senokot) 17.2 mg Q12H PRN PO 10/02/17 18:30 (Lactulose Liq) 30 ml DAILY PRN PO 10/02/17 18:30 10/04/17 08:38 (NS Flush) 2 ml BID IV FLUSH 10/02/17 21:00 10/08/17 20:43 (NS Flush) 2 ml UNSCH PRN IV FLUSH 10/02/17 18:30 10/08/17 12:20 (KCl) 20 meq BID PO 10/02/17 21:00 10/08/17 20:44 (Robitussin Dm 200-20 Mg/10 ml Liq) 10 ml Q4H PRN PO 10/02/17 19:30 (Zyloprim) 300 mg DAILY PO 10/03/17 09:00 10/08/17 08:48 (Colchicine) 0.6 mg MoWeFr PO 10/02/17 19:30 10/07/17 07:55 (Proscar) 5 mg DAILY PO 10/02/17 19:30 10/08/17 08:49 (Prinivil) 20 mg DAILY PO 10/02/17 19:30 Future Hold 10/04/17 08:42 (Claritin) 10 mg DAILY PO 10/03/17 09:00 10/08/17 08:49 (Minipress) 5 mg BID PO 10/02/17 21:00 10/08/17 20:44 (Flomax) 0.4 mg HS PO 10/02/17 21:00 10/08/17 20:44 (Ultram) 50 mg TID PO 10/03/17 09:00 10/08/17 18:10 (Coumadin) 2.5 mg SuTuWeThFrSa@1600 PO 10/02/17 19:34 Future Hold 10/03/17 16:00 (Coumadin) 5 mg Mo@1600 PO 10/07/17 16:00 Future Hold (Protonix) 20 mg DAILY PO 10/03/17 09:00 10/08/17 08:48 (Pravachol) 40 mg HS PO 10/02/17 21:00 10/08/17 20:45 (Vasotec Inj) 1.25 mg Q6H PRN IV PUSH 10/02/17 19:30 (Lopressor) 50 mg BID PO 10/04/17 21:00 10/08/17 20:44 Levofloxacin/ Dextrose 150 ml @ 100 mls/hr Q48H IV 10/04/17 11:00 10/08/17 12:20 (SoluMEDROL INJ) 125 mg Q6HR IV PUSH 10/05/17 12:00 10/09/17 05:38 (Duoneb Neb) 1 ampule Q4HR WHILE AWAKE NEB NEB 10/05/17 12:00 10/09/17 07:27 (Duoneb Neb) 1 ampule Q2HR NEB PRN NEB 10/05/17 12:00 10/09/17 02:20 (Lactulose Liq) 30 ml DAILY PO 10/06/17 18:00 10/08/17 08:50 Vital Signs / I&O Vital Signs Date Time Temp Pulse Resp B/P (MAP) Pulse Ox O2 Delivery O2 Flow Rate FiO2 10/09/17 08:00 97.7 80 22 135/77 (96) 94 10/09/17 07:27 95 21 10/09/17 06:20 88 10/09/17 05:09 82 10/09/17 04:03 80 10/09/17 03:22 98.1 80 20 135/70 (91) 98 10/09/17 03:22 77 10/09/17 02:35 76 10/09/17 01:09 78 10/09/17 00:05 74 10/08/17 23:59 98.6 75 21 132/80 (97) 96 10/08/17 23:59 77 10/08/17 22:06 83 10/08/17 21:00 86 10/08/17 20:18 96 21 10/08/17 20:00 84 10/08/17 19:20 97.8 80 20 129/75 (93) 95 10/08/17 19:10 83 10/08/17 18:07 88 10/08/17 17:00 84 10/08/17 16:02 81 10/08/17 15:41 97.4 89 21 125/67 (86) 96 10/08/17 15:22 88 10/08/17 14:03 97 Room Air 10/08/17 14:00 82 10/08/17 13:00 88 10/08/17 12:13 83 10/08/17 12:01 97.6 68 24 137/65 (89) 97 10/08/17 11:38 84 I/O 10/08/17 10/08/17 10/08/17 10/09/17 10/09/17 10/09/17 07:00 15:00 23:00 07:00 15:00 23:00 Intake Total 240 ml 657 ml 480 ml Output Total 1600 ml 1000 ml 1050 ml Balance -1360 ml -343 ml -570 ml Intake Oral 240 ml 657 ml 480 ml Output Urine Total 1600 ml 1000 ml 1050 ml # Bowel Movements 0 1 0 Physical Exam GENERAL: Well-developed well-nourished. In no acute distress. NECK: No carotid bruits. No JVD. CARDIOVASCULAR: Irregular controlled rate and irregular rhythm. No murmur appreciated. RESPIRATORY: No accessory muscle use. Clear to auscultation. Breath sounds equal bilaterally. MUSCULOSKELETAL: No clubbing or cyanosis. No edema. NEUROLOGICAL: Awake and alert. Normal speech. Laboratory Laboratory Tests Test 10/09/17 04:12 White Blood Count 7.1 TH/MM3 Red Blood Count 4.43 MIL/MM3 Hemoglobin 13.1 GM/DL Hematocrit 40.5 % Mean Corpuscular Volume 91.5 FL Mean Corpuscular Hemoglobin 29.6 PG Mean Corpuscular Hemoglobin Concent 32.4 % Red Cell Distribution Width 16.8 % Platelet Count 94 TH/MM3 Mean Platelet Volume 10.9 FL Neutrophils (%) (Auto) 94.2 % Lymphocytes (%) (Auto) 2.8 % Monocytes (%) (Auto) 3.0 % Eosinophils (%) (Auto) 0.0 % Basophils (%) (Auto) 0.0 % Neutrophils # (Auto) 6.6 TH/MM3 Lymphocytes # (Auto) 0.2 TH/MM3 Monocytes # (Auto) 0.2 TH/MM3 Eosinophils # (Auto) 0.0 TH/MM3 Basophils # (Auto) 0.0 TH/MM3 CBC Comment AUTO DIFF Differential Comment AUTO DIFF CONFIRMED Platelet Estimate LOW Platelet Morphology Comment NORMAL Ovalocytes 1+ Prothrombin Time 20.9 SEC Prothromb Time International Ratio 2.1 RATIO Blood Urea Nitrogen 61 MG/DL Creatinine 1.57 MG/DL Random Glucose 160 MG/DL Total Protein 5.4 GM/DL Albumin 2.6 GM/DL Calcium Level 8.4 MG/DL Alkaline Phosphatase 97 U/L Aspartate Amino Transf (AST/SGOT) 51 U/L Alanine Aminotransferase (ALT/SGPT) 101 U/L Total Bilirubin 1.1 MG/DL Sodium Level 137 MEQ/L Potassium Level 4.8 MEQ/L Chloride Level 103 MEQ/L Carbon Dioxide Level 28.6 MEQ/L Anion Gap 5 MEQ/L Estimat Glomerular Filtration Rate 43 ML/MIN Imaging Last Impressions Abdomen X-Ray 10/08/17 0600 Signed Impressions: Service Date/Time: Sunday, October 08, 2017 06:31 - CONCLUSION: 1. Resolution of the previously seen dilated bowel. 2. Gallstones 3. Severe chronic change at the left hip. Jorge Paz MD Myocardial Perfusion Scan Nuc Med 10/08/17 0000 Signed Impressions: Service Date/Time: Sunday, October 08, 2017 09:45 - CONCLUSION: Ejection fraction diminished at 48%%. Otherwise negative. No perfusion defects appreciated RISK CATEGORY: Intermediate (1-3%% Annual Mortality Rate) Tyler Ferris MD Chest CT 10/06/17 0000 Signed Impressions: Service Date/Time: Friday, October 06, 2017 21:23 - CONCLUSION: 1. Mild patchy lobar consolidation of the left upper lobe, series 3 image 37. 2. Mild basilar predominant atypical appearing tree in bud type changes of both lungs. 3. Small pericardial effusion, nonspecific age and etiology. 4. Coronary artery calcification. 5. Mild biatrial enlargement. 6. Cholelithiasis partly seen. Jorge Wright MD Renal Ultrasound 10/05/17 0000 Signed Impressions: Service Date/Time: Thursday, October 05, 2017 20:26 - CONCLUSION: 1. Chronic parenchymal disease. 2. No obstruction or acute abnormality demonstrated. 3. Large, benign appearing cyst of the left upper pole. Jorge Wright MD Chest X-Ray 10/05/17 0000 Signed Impressions: Service Date/Time: Thursday, October 05, 2017 11:56 - CONCLUSION: Mild left midlung atelectasis. No other acute cardiopulmonary disease identified. Siddharth Stanford MD (Nathaniel Hoffmann) Assessment and Plan Problem List: (1) Congestive heart failure ICD Codes: I50.9 - Heart failure, unspecified Status: Acute (2) Elevated troponin ICD Codes: R74.8 - Abnormal levels of other serum enzymes Status: Acute (3) Atrial fibrillation ICD Codes: I48.91 - Unspecified atrial fibrillation Assessment and Plan 82-year-old white male with a history of COPD, CHF, chronic atrial fibrillation who presented with worsening shortness of breath over the previous 3 days. He continues to have shortness of breath, productive cough, sore throat, and audible wheezing. He feels like his breathing is unchanged throughout the hospitalization. He denies any chest pain. He has chronic atrial fibrillation on Coumadin that is monitored by the PA. He states he has been on Lasix for many years and hasn't had any leg swelling since he was started on that. He states someone told him he had congestive heart failure at some point in the past several years. He denies any palpitations. The patient consulted for elevated troponin and PVCs. Troponins in the indeterminate range. Telemetry shows episodes of nonsustained V. tach up to 6 beats. History of CHF: EF 60-65%. No signs of acute exacerbation. Lisinopril on hold with RODRIGO. NSVT: Asymptomatic. Lexiscan nonischemic. Continue metoprolol. Chronic atrial fibrillation: Rate controlled on metoprolol. Therapeutic on warfarin. Troponin elevation: Intermediate range, possibly secondary to respiratory distress and renal insufficiency. Lexiscan nonischemic. COPD exacerbation/pneumonia: Treatment per primary team and pulmonology. RODRIGO on CKD: Improving. Nephrology on board. (Nathaniel Hoffmann) Assessment and Plan lexiscan negative normal EF continue BB will sign off call with further questions (Misael Espinoza MD) Problem Qualifiers (1) Congestive heart failure: Qualified Codes: I50.9 - Heart failure, unspecified Nathaniel Hoffmann Oct 09, 2017 09:03 Misael Espinoza MD Oct 09, 2017 10:56
--- NOTE | 2017-10-09 10:31 | HHI.PR ---
Subjective Remarks Need improvement. Decreased wheezing compared to yesterday. Decreased need for oxygen. Able to ambulate without extensive shortness of breath. He has not yet to baseline but he's been improving on treatments for his CHF and COPD. Objective Vital Signs Date Time Temp Pulse Resp B/P (MAP) Pulse Ox O2 Delivery O2 Flow Rate FiO2 10/09/17 08:00 97.7 80 22 135/77 (96) 94 10/09/17 07:27 95 21 10/09/17 06:20 88 10/09/17 05:09 82 10/09/17 04:03 80 10/09/17 03:22 98.1 80 20 135/70 (91) 98 10/09/17 03:22 77 10/09/17 02:35 76 10/09/17 01:09 78 10/09/17 00:05 74 10/08/17 23:59 98.6 75 21 132/80 (97) 96 10/08/17 23:59 77 10/08/17 22:06 83 10/08/17 21:00 86 10/08/17 20:18 96 21 10/08/17 20:00 84 10/08/17 19:20 97.8 80 20 129/75 (93) 95 10/08/17 19:10 83 10/08/17 18:07 88 10/08/17 17:00 84 10/08/17 16:02 81 10/08/17 15:41 97.4 89 21 125/67 (86) 96 10/08/17 15:22 88 10/08/17 14:03 97 Room Air 10/08/17 14:00 82 10/08/17 13:00 88 10/08/17 12:13 83 10/08/17 12:01 97.6 68 24 137/65 (89) 97 10/08/17 11:38 84 I/O 10/08/17 10/08/17 10/08/17 10/09/17 10/09/17 10/09/17 07:00 15:00 23:00 07:00 15:00 23:00 Intake Total 240 ml 657 ml 480 ml Output Total 1600 ml 1000 ml 1050 ml Balance -1360 ml -343 ml -570 ml Intake Oral 240 ml 657 ml 480 ml Output Urine Total 1600 ml 1000 ml 1050 ml # Bowel Movements 0 1 0 Result Diagram: 10/09/172 10/09/17 041 Objective Remarks GENERAL: NAD, A&Ox3 HEAD: Normocephalic. NECK: Supple, trachea midline. No lymphadenopathy. EYES: No scleral icterus. No injection or drainage. CARDIOVASCULAR: Regular rate and rhythm without murmurs, gallops, or rubs. RESPIRATORY: Breath sounds equal bilaterally. No accessory muscle use. Crackles at bases bilaterally. Wheezing bilaterally. GASTROINTESTINAL: Abdomen soft, non-tender, nondistended. MUSCULOSKELETAL: No cyanosis, or edema. SKIN: Warm and dry. NEURO: No focal neurological deficitis. A/P Problem List: (1) Atrial fibrillation ICD Code: I48.91 - Unspecified atrial fibrillation (2) COPD exacerbation ICD Code: J44.1 - Chronic obstructive pulmonary disease with (acute) exacerbation (3) Congestive heart failure ICD Code: I50.9 - Heart failure, unspecified Status: Acute Assessment and Plan 82-year-old male admitted secondary to CHF and COPD exacerbations. Medically stable today for transfer out of [facility]. Continue to work on physical therapy and monitor respiratory status including pulmonary edema and wheezing. Labs reviewed. No electrolyte disturbance today. Labs ordered for further monitoring. Continue to monitor labs. Acute hypoxemic respiratory failure COPD exacerbation Patient has done well with BiPAP Continue systemic steroids Continue doxycycline Continue Levaquin Continue duo nebs Continue as needed respiratory treatments Follow clinically for further improvement CHF exacerbation Diastolic congestive heart failure Atrial fibrillation Elevated troponin No signs of [place] No A. fib RVR Continue Lasix Follow clinically for further improvement Continue Coumadin Follow INR Hypertension Follow blood pressures Continue current treatments of metoprolol Lisinopril on hold due to elevation in creatinine Acute kidney injury Chronic kidney disease stage III May be related to fluid overload and decompensation as listed above Follow renal function Lisinopril on hold Hold other nephrotoxins Nephrology following Hyperlipidemia Continue statin Follows in outpatient Physical deconditioning Physical therapy Constipation Continue lactulose as needed Hematuria Coumadin on hold Follow urine output Monitor for improvement prior to resuming anticoagulants DVT prophylaxis SCDs given active bleed Problem Qualifiers (1) Congestive heart failure: Qualified Codes: I50.9 - Heart failure, unspecified Alex Maldonado MD Oct 09, 2017 10:30
--- NOTE | 2017-10-09 12:07 | HHI.NPPN ---
Subjective Renal Failure: Acute Interval History Breathing has improved. Renal function has returned to baseline. (Gaby Flannery) Review of Systems General Constitutional: Fatigue (Gaby Flannery) Respiratory Lungs: SOB, Cough (Gaby Flannery) Objective Data Data Vital Signs Date Time Temp Pulse Resp B/P (MAP) Pulse Ox O2 Delivery O2 Flow Rate FiO2 10/09/17 12:00 92 10/09/17 11:44 97.5 97 18 140/83 (102) 96 10/09/17 11:00 85 10/09/17 10:00 88 10/09/17 09:00 92 10/09/17 08:00 88 10/09/17 08:00 97.7 80 22 135/77 (96) 94 10/09/17 07:27 95 21 10/09/17 07:00 77 10/09/17 06:20 88 10/09/17 05:09 82 10/09/17 04:03 80 10/09/17 03:22 98.1 80 20 135/70 (91) 98 10/09/17 03:22 77 10/09/17 02:35 76 10/09/17 01:09 78 10/09/17 00:05 74 10/08/17 23:59 98.6 75 21 132/80 (97) 96 10/08/17 23:59 77 10/08/17 22:06 83 10/08/17 21:00 86 10/08/17 20:18 96 21 10/08/17 20:00 84 10/08/17 19:20 97.8 80 20 129/75 (93) 95 10/08/17 19:10 83 10/08/17 18:07 88 10/08/17 17:00 84 10/08/17 16:02 81 10/08/17 15:41 97.4 89 21 125/67 (86) 96 10/08/17 15:22 88 10/08/17 14:03 97 Room Air 10/08/17 14:00 82 10/08/17 13:00 88 10/08/17 12:13 83 (Gaby Flannery) -: 10/09/17 0412 10/09/17 0412 Tubes & Lines: Pichardo (Gaby Flannery) Physical Exam General Appearance: Well Developed, No Acute Distress, Comfortable (Gaby Flannery. HOME VISITOR) Eyes Eye Exam: Pupils Equal (Gaby Flannery HOME VISITOR) Neck Neck Exam: Neck Supple (Gaby Flannery. HOME VISITOR) Pulmonary Resp Exam: Breath Sounds Equal, Rhonchi, Labored Resp Remarks Exp wheezing, much improved (Gaby Flannery. HOME VISITOR) Cardiology CV Exam: Irregular (Gaby Flannery HOME VISITOR) Gastrointestinal/Abdomen GI Exam: Soft, Non-Tender, Bowel Sounds Present (Gaby Flannery. HOME VISITOR) Musculoskeletal MS Exam: Joints Intact, Normal Tone (Gaby Flannery HOME VISITOR) Integumentary Skin Exam: Warm, Dry, Intact (Gaby Flannery. HOME VISITOR) Extremeties Extremities Exam: No Edema, Pedal Pulses Palpable (Gaby Flannery. HOME VISITOR) Neurologic Neuro Exam: Alert, Awake, Oriented, Speech Clear, Moving All Extremities (Gaby Flannery HOME VISITOR) Psychiatric Psych Exam: Appropriate Responses (Gaby Flannery) Assessment/Plan Discussed Condition With: Patient Assessment Summary: RODRIGO/Acute Renal Failure, Hypertension Problem List: (1) Acute kidney injury ICD Codes: N17.9 - Acute kidney failure, unspecified Status: Acute Plan: Renal function has returned to baseline. He presented with urinary retention. He is on Flomax and finasteride. Consider voiding trial prior to discharge. Otherwise should be discharged with pichardo/leg bag and urology follow up. He is non oliguric. Avoid nephrotoxic agents. (2) COPD exacerbation ICD Codes: J44.1 - Chronic obstructive pulmonary disease with (acute) exacerbation Plan: Pulmonary following, CT reviewed. He is on bronchodilators, continuous oxygen, and steroids. (3) Congestive heart failure ICD Codes: I50.9 - Heart failure, unspecified Status: Acute Plan: EF 48%, negative stress test (4) Atrial fibrillation ICD Codes: I48.91 - Unspecified atrial fibrillation Plan: Rate is controlled. INR therapeutic. Anticoagulation resumed (5) Essential (primary) hypertension ICD Codes: I10 - Essential (primary) hypertension Status: Chronic Plan: He is on metoprolol and Minipress. Resume CANDACE at discharge. Plan We will sign off at this time. Please call us if needed. (Gaby Flannery) Problem List: (1) Acute kidney injury ICD Codes: N17.9 - Acute kidney failure, unspecified Status: Acute Plan: Renal function has returned to baseline. He presented with urinary retention. He is on Flomax and finasteride. Consider voiding trial prior to discharge. Otherwise should be discharged with pichardo/leg bag and urology follow up. He is non oliguric. Avoid nephrotoxic agents. (2) COPD exacerbation ICD Codes: J44.1 - Chronic obstructive pulmonary disease with (acute) exacerbation Plan: Pulmonary following, CT reviewed. He is on bronchodilators, continuous oxygen, and steroids. (3) Congestive heart failure ICD Codes: I50.9 - Heart failure, unspecified Status: Acute Plan: EF 48%, negative stress test (4) Atrial fibrillation ICD Codes: I48.91 - Unspecified atrial fibrillation Plan: Rate is controlled. INR therapeutic. Anticoagulation resumed (5) Essential (primary) hypertension ICD Codes: I10 - Essential (primary) hypertension Status: Chronic Plan: He is on metoprolol and Minipress. Resume CANDACE at discharge. Plan Patient was seen and examined. Agree with above assessment and plan. Renal function has improved to baseline. Consider voiding trial before discharge. Other option is to discharge with Pichardo/leg bag with Urology followup. (Semaj Garza MD) Problem Qualifiers (1) Congestive heart failure: Qualified Codes: I50.9 - Heart failure, unspecified Gaby Flannery Oct 09, 2017 12:07 Semaj Garza MD Oct 09, 2017 18:34
--- NOTE | 2017-10-09 16:26 | HHI.PR ---
Subjective Remarks ALERT less sob Objective Vital Signs Date Time Temp Pulse Resp B/P (MAP) Pulse Ox O2 Delivery O2 Flow Rate FiO2 10/09/17 15:48 97.8 84 20 142/89 (106) 96 10/09/17 14:15 73 10/09/17 13:29 82 10/09/17 12:00 92 10/09/17 11:44 97.5 97 18 140/83 (102) 96 10/09/17 11:00 85 10/09/17 10:00 88 10/09/17 09:00 92 10/09/17 08:00 88 10/09/17 08:00 97.7 80 22 135/77 (96) 94 10/09/17 07:27 95 21 10/09/17 07:00 77 10/09/17 06:20 88 10/09/17 05:09 82 10/09/17 04:03 80 10/09/17 03:22 98.1 80 20 135/70 (91) 98 10/09/17 03:22 77 10/09/17 02:35 76 10/09/17 01:09 78 10/09/17 00:05 74 10/08/17 23:59 98.6 75 21 132/80 (97) 96 10/08/17 23:59 77 10/08/17 22:06 83 10/08/17 21:00 86 10/08/17 20:18 96 21 10/08/17 20:00 84 10/08/17 19:20 97.8 80 20 129/75 (93) 95 10/08/17 19:10 83 10/08/17 18:07 88 10/08/17 17:00 84 I/O 10/08/17 10/08/17 10/08/17 10/09/17 10/09/17 10/09/17 07:00 15:00 23:00 07:00 15:00 23:00 Intake Total 240 ml 657 ml 480 ml Output Total 1600 ml 1000 ml 1050 ml Balance -1360 ml -343 ml -570 ml Intake Oral 240 ml 657 ml 480 ml Output Urine Total 1600 ml 1000 ml 1050 ml # Bowel Movements 0 1 0 Result Diagram: 10/09/1741110/09/17411 Objective Remarks GENERAL: SKIN: Warm and dry. HEAD: Atraumatic. Normocephalic. EYES: Pupils equal and round. No scleral icterus. No injection or drainage. ENT: No nasal bleeding or discharge. Mucous membranes pink and moist. NECK: Trachea midline. No JVD. CARDIOVASCULAR: Regular rate and rhythm. RESPIRATORY: No accessory muscle use. , SCATTERED RHONCHI Clear to auscultation. Breath sounds equal bilaterally. GASTROINTESTINAL: Abdomen soft, non-tender, nondistended. Hepatic and splenic margins not palpable. MUSCULOSKELETAL: Extremities without clubbing, cyanosis, or edema. No obvious deformities. NEUROLOGICAL: Awake and alert. No obvious cranial nerve deficits. Motor grossly within normal limits. Five out of 5 muscle strength in the arms and legs. Normal speech. PSYCHIATRIC: Appropriate mood and affect; insight and judgment normal. Assessment and Plan Assessment and Plan COPD EXACERBATION CHF improved PLAN O2 BRONCHODILATORS STEROIDS ANTIBX home am if stable Fitz Byrnes MD Oct 09, 2017 16:26
[2017-10-09] MEDS: COLCHICINE 0.6 MG TAB PO SCH (18:08)
[2017-10-09] MEDS: TAMSULOSIN HCL 0.4 MG CAP PO SCH (19:53)
[2017-10-09] MEDS: PRAVASTATIN SOD 40 MG TAB PO SCH (19:55)
[2017-10-10] VITALS (11 sets, daily range): BP systolic 124–134; BP diastolic 66–76; PULSE 68–88; RESP 16; TEMP 97.3–97.9; O2SAT 95–97
[2017-10-10] MEDS: methylPREDNISolone SOD SUCC 125 MG/2 ML VIAL IV PUSH SCH ×3 (00:23→12:20)
[2017-10-10 06:54] LABS: INTERNATIONAL NORMALIZED RATIO 1.8 RATIO; PROTHROMBIN TIME - PATIENT 17.9 SEC (9.8-11.6)
[2017-10-10 06:59] LABS: AUTOMATED NEUTROPHIL # 8.4 TH/MM3 (1.8-7.7); BASOPHIL % 0.1 % (0.0-2.0); HEMATOCRIT 40.9 % (39.0-51.0); HEMOGLOBIN 13.6 GM/DL (13.0-17.0); LYMPH % 3.7 % (9.0-44.0); LYMPHOCYTE # 0.3 TH/MM3 (1.0-4.8); MEAN CORPUSCULAR HEMOGLOBIN 30.3 PG (27.0-34.0); MEAN CORPUSCULAR HGB CONC 33.3 % (32.0-36.0); MEAN PLATELET VOLUME 10.7 FL (7.0-11.0); MONO % 2.9 % (0.0-8.0); MONOCYTE # 0.3 TH/MM3 (0-0.9); NEUT % 93.3 % (16.0-70.0); PLATELET COUNT 104 TH/MM3 (150-450); RED BLOOD COUNT 4.49 MIL/MM3 (4.50-5.90)
[2017-10-10] MEDS: METOPROLOL TARTRATE 50 MG TAB PO SCH (09:25)
[2017-10-10] MEDS: PRAZOSIN HCL 5 MG CAP PO SCH (09:25)
[2017-10-10] MEDS: POTASSIUM CHLORIDE 20 MEQ CONTROLLED RELEASE TAB PO SCH (09:25)
[2017-10-10] MEDS: LACTULOSE SYRUP 20 GM/30 ML CUP PO SCH (09:25)
[2017-10-10] MEDS: LORATADINE 10 MG TAB PO SCH (09:26)
[2017-10-10] MEDS: FINASTERIDE 5 MG TAB PO SCH (09:26)
[2017-10-10] MEDS: PANTOPRAZOLE SOD 20 MG DELAYED RELEASE TAB PO SCH (09:26)
[2017-10-10] MEDS: traMADol HCL 50 MG TAB PO SCH ×2 (09:26→12:20)
[2017-10-10] MEDS: ALLOPURINOL 300 MG TAB PO SCH (09:26)
[2017-10-10] MEDS: SODIUM CHLORIDE 0.9% FLUSH 10 ML FLUSH IV FLUSH SCH (09:27)
--- NOTE | 2017-10-10 09:27 | RSPPFT ---
DATE OF PROCEDURE: 10/08/17 COMMENTS: Spirometry shows FVC of 1.2 at 44% of predicted, FEV1 of 0.9 at 40%, FEV1/FVC ratio is decreased. Flow is decreased at FEF 25, FEF 50, FEF 75 and FEF 25-75. Flow volume loop indicates an obstructive pattern. Post-bronchodilator study was not done. IMPRESSION: 1. Severe obstructive lung disease. 2. Post-bronchodilator study was not done.
--- NOTE | 2017-10-10 11:41 | HHI.FF ---
Face to Face Verification Diagnosis: (1) Hematuria (2) Systolic CHF (3) CKD (chronic kidney disease), stage III (4) Congestive heart failure Home Health Nursing Order: Signs/symptoms of disease process CHF education Gandhi catheter maintenance Telehealth Instructions: Monitor Hematuria, Weekly INR (start 10/14/17) I have seen patient Alex Knapp on 10/10/17. My clinical findings support the need for the requested home health care services because: Ltd mobility - disease progression Patient has SOB Deconditioned w/ increased weakness I certify that my clinical findings support that this patient is homebound because: Unsteady gait/balance Unsafe to leave home unassisted Unable to use public transportation Poor cardiac reserve Alex Maldonado MD Oct 10, 2017 11:41
[2017-10-10] MEDS ORDERED: HOSP BED1 (11:42)
--- NOTE | 2017-10-10 11:47 | HHI.DS ---
Discharge Summary Admission Date Oct 02, 2017 at 17:40 Discharge Date: Oct 10, 2017 Admitting Diagnosis congestive heart failure, elevated troponin, dyspnea (1) Acute respiratory failure ICD Code: J96.00 - Acute respiratory failure, unspecified whether with hypoxia or hypercapnia Diagnosis: Principal Status: Acute (2) Acute diastolic heart failure ICD Code: I50.31 - Acute diastolic (congestive) heart failure Diagnosis: Principal (3) COPD exacerbation ICD Code: J44.1 - Chronic obstructive pulmonary disease with (acute) exacerbation Diagnosis: Principal (4) Atrial fibrillation ICD Code: I48.91 - Unspecified atrial fibrillation Diagnosis: Secondary (5) Acute kidney injury ICD Code: N17.9 - Acute kidney failure, unspecified Diagnosis: Principal Status: Acute (6) Essential (primary) hypertension ICD Code: I10 - Essential (primary) hypertension Diagnosis: Secondary Status: Chronic (7) Elevated troponin ICD Code: R74.8 - Abnormal levels of other serum enzymes Diagnosis: Secondary Status: Acute (8) CKD (chronic kidney disease), stage III ICD Code: N18.3 - Chronic kidney disease, stage 3 (moderate) Diagnosis: Secondary Procedures none Brief History - From Admission 82-year-old white male with a history of COPD, CHF, chronic atrial fibrillation presents emergency room with worsening shortness of breath over the past 3 days. He describes shortness breath is worse with exertion and ambulation and associated with productive cough for the past 2 days. His is at bedside states that he has had greenish sputum production. He denies any chills or fever nor any symptoms of muscle aches or joint pains. She states that she recently had upper respiratory infection and feels he may have similar symptoms. He denies any associated abdominal pain nor any symptoms of diarrhea , nausea, or vomiting. He has noted that he has increase swelling of the lower legs. He denies any associated chest pain or score palpitations with the symptoms. He usually does not use oxygen. He does have inhalers and nebulizers and despite using these continues have shortness of breath. He has is currently staying here temporary until December from [place]. His baseline activity is ambulating with assistance of walker however due to the past 3 days has not been ambulating much. CBC/BMP: 10/10/17 0605 10/09/17 0412 Significant Findings Laboratory Tests Test 10/07/17 12:23 10/08/17 03:15 10/09/17 04:12 10/10/17 06:05 Platelet Count 87 TH/MM3 (150-450) 74 TH/MM3 (150-450) 94 TH/MM3 (150-450) 104 TH/MM3 (150-450) Blood Urea Nitrogen 74 MG/DL (7-18) 72 MG/DL (7-18) 61 MG/DL (7-18) Creatinine 1.89 MG/DL (0.60-1.30) 1.98 MG/DL (0.60-1.30) 1.57 MG/DL (0.60-1.30) Random Glucose 146 MG/DL (74-106) 158 MG/DL (74-106) 160 MG/DL (74-106) Albumin 3.1 GM/DL (3.4-5.0) 2.8 GM/DL (3.4-5.0) 2.6 GM/DL (3.4-5.0) Potassium Level 5.4 MEQ/L (3.5-5.1) Estimat Glomerular Filtration Rate 34 ML/MIN (>89) 33 ML/MIN (>89) 43 ML/MIN (>89) Red Blood Count 4.34 MIL/MM3 (4.50-5.90) 4.43 MIL/MM3 (4.50-5.90) 4.49 MIL/MM3 (4.50-5.90) Neutrophils (%) (Auto) 92.7 % (16.0-70.0) 94.2 % (16.0-70.0) 93.3 % (16.0-70.0) Lymphocytes (%) (Auto) 3.4 % (9.0-44.0) 2.8 % (9.0-44.0) 3.7 % (9.0-44.0) Lymphocytes # (Auto) 0.2 TH/MM3 (1.0-4.8) 0.2 TH/MM3 (1.0-4.8) 0.3 TH/MM3 (1.0-4.8) Platelet Estimate LOW (NORMAL) LOW (NORMAL) Ovalocytes 1+ (NORMAL) 1+ (NORMAL) Prothrombin Time 27.0 SEC (9.8-11.6) 20.9 SEC (9.8-11.6) 17.9 SEC (9.8-11.6) Total Protein 5.6 GM/DL (6.4-8.2) 5.4 GM/DL (6.4-8.2) Aspartate Amino Transf (AST/SGOT) 62 U/L (15-37) 51 U/L (15-37) Alanine Aminotransferase (ALT/SGPT) 93 U/L (12-78) 101 U/L (12-78) Calcium Level 8.4 MG/DL (8.5-10.1) Total Bilirubin 1.1 MG/DL (0.2-1.0) Neutrophils # (Auto) 8.4 TH/MM3 (1.8-7.7) PE at Discharge AAOx3 The patient is nad, mild respiratory distress There is diffuse bilateral wheezing mostly in expiratory phase on bilateral lung hemphill and wheezing at the level of the larynx - improving (-) use of accessory muscles of respiration Abdomen is soft, non tender, mildly distended with positive bowel sounds. No edema observed on lower extremities Hospital Course Mr. Knapp is an 82-year-old male. He was admitted secondary to acute respiratory distress. He was found to have COPD exacerbation and CHF exacerbation. Both of these conditions were addressed and treated and he has had improvement time. At this point he is off oxygen. Additionally, when he came in he had hematuria. He is on Coumadin at baseline for management of his atrial fibrillation. Coumadin has been held and a place. Degree of hematuria has decreased through time. He still has some hematuria left but his hemoglobin has remained stable. Recommendation is for outpatient follow-up with urology and to leave Gandhi catheter in. Coumadin will be resumed and monitoring for increased bleeding is also instructed. He'll have home health visiting him for monitoring his hematuria, managing Gandhi catheter, and following his INR level. Medically stable for discharge to home today. Pt Condition on Discharge: Stable Discharge Disposition: Disch w/ Home Health Serv Discharge Time: > 30 minutes Discharge Instructions DIET: Follow Instructions for: As Tolerated, No Restrictions Activities you can perform: Regular-No Restrictions Follow up Referrals: PCP Follow-up - 2 Weeks Urology - 1 Week New Medications: Hospital Bed - Electric ([facility] Bed - Electric) 1 Ea Ea EA .ROUTE DIRECTED for Compromised Agility, #1 Continued Medications: Albuterol 18 GM Inh (Ventolin Hfa 18 GM Inh) 90 Mcg/Act Aer 2 PUFF INH QID, #1 INHALER 0 Refills Allopurinol (Allopurinol) 300 Mg Tab 300 MG PO DAILY for Gout, #30 TAB 0 Refills Budesonide-Formoterol Inh (Symbicort Inh) 80-4.5 Mcg/Act Aero 2 PUFF INH Q12HR for Asthma Management, #1 INHALER 0 Refills Cholecalciferol (Vitamin D3) 2,000 Unit Cap 2000 UNITS PO DAILY for Nutritional Supplement, #56 CAP 0 Refills Colchicine (Colchicine) 0.6 Mg Cap 0.6 MG PO MoWeFr for Gout, CAP 0 Refills Take 1 capsule (0.6mg) daily on Saturday,Saturday and Saturday Diclofenac Topical (Diclofenac Topical) 1% Gel 1 APPLIC TOPICAL BID PRN for PAIN, #100 GM 0 Refills Docusate Sodium (Colace) 100 Mg Capsule 100 MG PO BID PRN for CONSTIPATION Finasteride (Finasteride) 5 Mg Tab 5 MG PO DAILY for Manage Prostate Problems, #30 TAB 0 Refills Do not crush. Fluticasone Nasal [place] (Flonase Nasal [place]) 50 Mcg/Act [place] 2 SPRAY EACH NARE DAILY for Allergies, #1 BOTTLE 0 Refills Furosemide (Lasix) 20 Mg Tab 20 MG PO DAILY, #30 TAB 0 Refills Guaifenesin (Guaifenesin) 200 Mg Tablet 200 MG PO TID for Chest Congestion Hydrocodone-Acetaminophen ([place]) 5 Mg-325 Mg Tab 1 TAB PO Q8HR PRN for PAIN, TAB 0 Refills Lisinopril (Lisinopril) 20 Mg Tab 20 MG PO DAILY, #30 TAB 0 Refills Loratadine (Claritin) 10 Mg Tablet 10 MG PO DAILY for Allergies Magnesium Oxide (Magnesium Oxide) 420 Mg Tab 420 MG PO BID for Nutritional Supplement Metoprolol Tartrate (Metoprolol Tartrate) 25 Mg Tab 25 MG PO BID, #60 TAB 0 Refills Omeprazole (Omeprazole) 20 Mg Tab 20 MG PO DAILY for Reflux, #30 TAB 0 Refills Prazosin (Prazosin) 5 Mg Cap 5 MG PO BID for Blood Pressure Management, #60 CAP 0 Refills Simvastatin (Simvastatin) 20 Mg Tab 20 MG PO HS for Cholesterol Management, #30 TAB 0 Refills Tamsulosin (Tamsulosin) 0.4 Mg Cap 0.4 MG PO HS for Manage Prostate Problems, #30 CAP 0 Refills Tramadol (Tramadol) 50 Mg Tab 50 MG PO TID, TAB 0 Refills Warfarin (Warfarin) 5 Mg Tab 5 MG PO SATURDAY for Blood Clot Prevention, #30 TAB 0 Refills Warfarin (Warfarin) 5 Mg Tab 2.5 MG PO SuTuWeThFrSa for Blood Clot Prevention, #30 TAB 0 Refills Take 1/2 tablet (2.5mg) daily on Saturday,Saturday,Saturday,, Saturday and Saturday Alex Maldonado MD Oct 10, 2017 11:47
[2017-10-10] MEDS: LEVOFLOXACIN 750 MG PREMIX INJ 150 ML IV SCH (12:19)
== END 2017-10-10 17:34 | disposition home health service (06) | DRG 189 ==
LOC: NEPC 15:33 → NEDA 17:40 → NEDH 21:50 → N04A 10-03 16:01 → HCPC 10-05 13:56 → HCIN 10-09 14:58
PROVIDERS: ADMIT Hospitalist; ATTEND Hospitalist
PROC: 5A09357 Assistance with Respiratory Ventilation, Less than 24 Consecutive Hours, Continuous Positive Airway Pressure (ICD-10-PCS; principal; 2017-10-02)
DX: J96.01 Acute respiratory failure with hypoxia (principal); I50.31 Acute diastolic (congestive) heart failure; N17.9 Acute kidney failure, unspecified; I47.2 Ventricular tachycardia; J18.9 Pneumonia, unspecified organism; K56.600 Partial intestinal obstruction, unspecified as to cause; N18.3 Chronic kidney disease, stage 3 (moderate); J44.0 Chronic obstructive pulmonary disease with (acute) lower respiratory infection; J44.1 Chronic obstructive pulmonary disease with (acute) exacerbation; I13.0 Hypertensive heart and chronic kidney disease with heart failure and stage 1 through stage 4 chronic kidney disease, or unspecified chronic kidney disease; I48.2 Chronic atrial fibrillation; Z79.01 Long term (current) use of anticoagulants; K42.9 Umbilical hernia without obstruction or gangrene; I87.8 Other specified disorders of veins; Z82.3 Family history of stroke; Z82.49 Family history of ischemic heart disease and other diseases of the circulatory system; J20.9 Acute bronchitis, unspecified; E78.5 Hyperlipidemia, unspecified; N40.0 Benign prostatic hyperplasia without lower urinary tract symptoms; Z87.891 Personal history of nicotine dependence; K80.20 Calculus of gallbladder without cholecystitis without obstruction; M12.9 Arthropathy, unspecified; K40.90 Unilateral inguinal hernia, without obstruction or gangrene, not specified as recurrent; I27.20 Pulmonary hypertension, unspecified; I08.1 Rheumatic disorders of both mitral and tricuspid valves
CPT/HCPCS: 36600; 71045; 71250; 74018; 76775; 78452; 80048; 80053; 80069; 81001; 82550; 82552; 82805; 83036; 83735; 83880; 84484; 85025; 85027; 85610; 85730; 87804; 93005; 93017; 93306; 94002; 94010; 94150; 94618; 94640; 94664; 96374; A9502; J0171; J1650; J1940; J1956; J2785; J2930; J7030; J7613